=== PATIENT | female | born 1975 | race Caucasian/White ===

== ENCOUNTER 2017-10-04 10:35 | Emergency (ER) | payer SELFPAY ==
[2017-10-04 10:45] VITALS: BP 138/72
--- NOTE | 2017-10-04 11:02 | UC ---
UC General HPI - HPI Summary HPI Summary: Joint pain and fatigue is concerned she may have Lyme disease---no rash - History of Current Complaint Chief Complaint: UCGeneralIllness Stated Complaint: JOINT PAIN FATIGUE Time Seen by Provider: 10/04/17 10:52 Hx Obtained From: Patient Hx Last Menstrual Period: 10/03/17 Onset/Duration: Gradual Onset, Lasting Weeks Timing: Constant Onset Severity: Mild Current Severity: Moderate - Allergy/Home Medications Allergies/Adverse Reactions: Allergies Allergy/AdvReac Type Severity Reaction Status Date / Time Moxifloxacin [From Avelox] Allergy Severe vomiting, Verified 10/04/17 10:39 hives Penicillins Allergy Intermediate Hives Verified 10/04/17 10:39 Erythromycin Allergy Hives Verified 10/04/17 10:39 Levofloxacin [From Levaquin] Allergy Unknown Verified 10/04/17 10:39 Reaction Details Home Medications: Home Medications ALPRAZolam TAB* [Xanax TAB*] 0.25 mg PO Q6H PRN 10/04/17 [History Confirmed 10/10] Levothyroxine TAB* [Synthroid 125 MCG TAB*] 125 mcg PO DAILY 10/04/17 [History Confirmed 10/04/17] PMH/Surg Hx/FS Hx/Imm Hx Previously Healthy: No Endocrine History: Diabetes, Hypothyroidism - Surgical History Surgical History: Yes Surgery Procedure, Year, and Place: Cholecystectomy, LEEP x3, tubal ligation thyroidectomy - Family History Known Family History: Positive: Unknown, Cardiac Disease, Hypertension - Social History Occupation: Unemployed Lives: Alone Alcohol Use: Occasionally Substance Use Type: None Smoking Status (MU): Current Some Day Smoker Type: Cigarettes Length of Time of Smoking/Using Tobacco: 15 years on and off Household Exposure Type: Cigarettes Cessation Counseling: Counseled 3+Min - 10 Min - Immunization History Most Recent Influenza Vaccination: 5 yrs ago Most Recent Tetanus Shot: 5yrs ago Most Recent Pneumonia Vaccination: none Review of Systems Constitutional: Negative Skin: Negative Eyes: Negative ENT: Negative Respiratory: Negative Cardiovascular: Negative Gastrointestinal: Negative Genitourinary: Negative Motor: Negative Neurovascular: Negative Musculoskeletal: Arthralgia Neurological: Negative Psychological: Negative Is Patient Immunocompromised?: No All Other Systems Reviewed And Are Negative: Yes Physical Exam Triage Information Reviewed: Yes Appearance: Well-Appearing, No Pain Distress, Well-Nourished Vital Signs: Initial Vital Signs Temp 98 F 10/04/17 10:43 Pulse 76 10/04/17 10:43 Resp 16 10/04/17 10:43 BP 138/72 10/04/17 10:43 Pulse Ox 100 10/04/17 10:43 Vital Signs Reviewed: Yes Eye Exam: Normal Eyes: Positive: Conjunctiva Clear ENT Exam: Normal ENT: Positive: Normal ENT inspection, Hearing grossly normal, Pharynx normal, TMs normal, Uvula midline. Negative: Trismus, Muffled voice, Hoarse voice Dental Exam: Normal Neck exam: Normal Neck: Positive: Supple, Nontender Respiratory Exam: Normal Respiratory: Positive: Chest non-tender, Lungs clear, Normal breath sounds, No respiratory distress, No accessory muscle use Cardiovascular Exam: Normal Cardiovascular: Positive: RRR, No Murmur, Pulses Normal, Brisk Capillary Refill Musculoskeletal Exam: Normal Musculoskeletal: Positive: Strength Intact, ROM Intact, No Edema Neurological Exam: Normal Neurological: Positive: Alert, Muscle Tone Normal Psychological Exam: Normal Skin Exam: Normal Course/Dx - Course Course Of Treatment: Lab studies will start Doxy if Lyme is positive, nicotine cesasation information - Differential Dx - Multi-Symptom Provider Diagnoses: Fatigue, artharalgia Discharge - Discharge Plan Condition: Stable Disposition: HOME Prescriptions: Doxycycline (Monohydrate) [Doxycycline Monohydrate] 1 cap PO BID #28 cap Patient Education Materials: Lyme Disease (ED), Musculoskeletal Pain (ED), Fatigue (ED) Referrals: [facility] – [place] PHYSICIAN REFERRAL [Outside] - 1 Week Additional Instructions: I have included information regarding Lyme for your reference. If you Lyme comes back positive we will call in antibiotics for you--
[2017-10-04 14:11] LABS: Hematocrit 46 % (35-47); Hemoglobin 15.7 g/dl (12.0-16.0); Mean Corpuscular HGB Conc 34 g/dl (31-36); Mean Corpuscular Hemoglobin 32 pg (27-31); Mean Corpuscular Volume 94 fL (80-97); Mean Platelet Volume 9 um3 (7.4-10.4); Red Blood Count 4.91 10^6/ul (4.0-5.4); Red Cell Distribution Width 13 % (10.5-15); White Blood Count 10.1 10^3/ul (3.5-10.8)
[2017-10-04 14:51] LABS: Erythrocyte Sed Rate 10 mm/Hr (0-14)
[2017-10-08 14:57] LABS: Lyme Disease IgG Ab WB Negative (Negative)
--- NOTE | 2017-10-08 19:31 | UC ---
Progress - Progress Note Progress Note: Lyme negative. Can let her know. - Results/Orders Results/Orders: Lyme negative. Can let her know.
--- NOTE | 2017-10-10 21:04 | UC ---
Progress - Progress Note Progress Note: PT CALLED TO DISCUSS LYME SEROLOGY RESULT. PT C/O PERSISTENT MYALGIAS, ARTHRALGIAS, FATIGUE AND LOW GRADE FEVERS. INITIAL LYME SCREEN POSITIVE BUT NO ANTIBODIES DETECTED. ADVISED RETESTING IN SEVERAL WEEKS. PT STATES SHE HAS NO INSURANCE, NO PCP AND PERSISTENT SX, THEREFORE WILL TX WITH DOXY BID X 2 WEEKS. ADVISED THAT IF SX DO NOT IMPROVE SHE MUST SEEK FOLLOW-UP. CONTACT FOR PHYSICIAN REFERRAL CENTER PROVIDED. ERX SENT TO MARLON OZUNA MD Lyme negative. Can let her know. - Results/Orders Results/Orders: Lyme negative. Can let her know.
== END 2017-10-04 11:21 | disposition home or self-care (01) ==
LOC: UCEAST 10:35
DX: R53.83 Other fatigue (principal); M25.50 Pain in unspecified joint; E11.9 Type 2 diabetes mellitus without complications; E03.9 Hypothyroidism, unspecified; Z90.49 Acquired absence of other specified parts of digestive tract; Z88.1 Allergy status to other antibiotic agents; Z88.0 Allergy status to penicillin; Z71.6 Tobacco abuse counseling; F17.210 Nicotine dependence, cigarettes, uncomplicated
CPT/HCPCS: 36415; 85025; 85652; 86617; 86618; 99211; G0463

== ENCOUNTER 2017-12-02 19:45 | Emergency (ER) | payer SELFPAY ==
[2017-12-02 21:53] LABS: ABS Basophils 0.1 10^3/ul (0-0.2); ABS Eosinophils 0.1 10^3/ul (0-0.6); ABS Lymphocytes 3.6 10^3/ul (1.0-4.8); ABS Monocytes 0.7 10^3/ul (0-0.8); ABS Neutrophils 7.5 10^3/ul (1.5-7.7); ABS Nucleated RBC 0 10^3/ul; Eosinophil % 1.1 % (0-6); Hematocrit 45 % (35-47); Hemoglobin 15.3 g/dl (12.0-16.0); Lymphocyte % 29.9 % (25-47); Mean Corpuscular HGB Conc 34 g/dl (31-36); Mean Corpuscular Hemoglobin 32 pg (27-31); Mean Corpuscular Volume 94 fL (80-97); Mean Platelet Volume 9 um3 (7.4-10.4); Nucleated Red Blood Cells % 0.1; Platelet Count 315 10^3/ul (150-450); Red Blood Count 4.81 10^6/ul (4.0-5.4); Red Cell Distribution Width 13 % (10.5-15); White Blood Count 12.1 10^3/ul (3.5-10.8)
[2017-12-02 22:05] LABS: EGFR Non-African American 90.3 (>60)
[2017-12-02] MEDS ORDERED: Ketorolac INJ* 60 MG/2 ML VIAL IM ONE (22:36)
--- NOTE | 2017-12-02 23:35 | ED ---
GI/ HPI - HPI Summary HPI Summary: 42F presents with LUQ and left flank pain today. She states she has had intermittent left flank pain for a couple months. She states today her developed pain from her left flank under left rib into LUQ. She denies any dysuria, hematuria, urgency or frequency. She has history of acid reflux. She states that food makes it worst. She admits to normal appetite. She denies any melena or blood in stool. She admits to nausea but denies any v/d/c. She denies any cough. She denies any history of blood clots. She denies any chest pain. She states deep breath makes rib hurt more. She denies any injury. She is not on any thing for acid reflux because the medication causes palpitations. - History of Current Complaint Chief Complaint: EDAbdPain Time Seen by Provider: 12/02/17 22:09 Stated Complaint: ABD PAIN Hx Last Menstrual Period: 10/03/17 Pain Intensity: 7 - Allergy/Home Medications Allergies/Adverse Reactions: Allergies Allergy/AdvReac Type Severity Reaction Status Date / Time Moxifloxacin [From Avelox] Allergy Severe vomiting, Verified 12/02/17 22:29 hives Penicillins Allergy Intermediate Hives Verified 12/02/17 22:29 Erythromycin Allergy Hives Verified 12/02/17 22:29 Levofloxacin [From Levaquin] Allergy Unknown Verified 12/02/17 22:29 Reaction Details PMH/Surg Hx/FS Hx/Imm Hx Endocrine/Hematology History: Reports: Hx Diabetes - NIDDM, Hx Thyroid Disease Denies: Hx Systemic Lupus Erythematosus Cardiovascular History: Denies: Hx Congestive Heart Failure, Hx Hypertension Respiratory History: Denies: Hx Asthma, Hx Chronic Obstructive Pulmonary Disease (COPD) GI History: Reports: Hx Gastroesophageal Reflux Disease Denies: Hx Ulcer History: Denies: Hx Renal Disease Musculoskeletal History: Denies: Hx Rheumatoid Arthritis Sensory History: Reports: Hx Contacts or Glasses Opthamlomology History: Reports: Hx Contacts or Glasses - Cancer History Cancer Type, Location and Year: Cervical cancer - Surgical History Surgery Procedure, Year, and Place: Cholecystectomy, LEEP x3, tubal ligation thyroidectomy Infectious Disease History: No Infectious Disease History: Denies: Hx Clostridium Difficile, Hx Hepatitis, Hx Human Immunodeficiency Virus (HIV), Hx of Known/Suspected MRSA, Hx Shingles, Hx Tuberculosis, Hx Known/ Suspected VRE, Hx Known/Suspected VRSA, History Other Infectious Disease, Traveled Outside the [place] in Last 30 Days - Family History Known Family History: Positive: Unknown, Cardiac Disease, Hypertension - Social History Alcohol Use: Occasionally Substance Use Type: Reports: None Hx Tobacco Use: Yes Smoking Status (MU): Current Some Day Smoker Type: Cigarettes Length of Time of Smoking/Using Tobacco: 15 years on and off Review of Systems Negative: Fever Negative: Chest Pain Negative: Shortness Of Breath Positive: Abdominal Pain - LUQ. Negative: Vomiting, Diarrhea, Nausea Positive: flank pain. Negative: dysuria All Other Systems Reviewed And Are Negative: Yes Physical Exam Triage Information Reviewed: Yes Vital Signs On Initial Exam: Initial Vitals Temp Pulse Resp BP Pulse Ox 97.3 F 86 16 155/94 97 12/02/17 19:48 12/02/17 19:48 12/02/17 19:48 12/02/17 19:48 12/02/17 19:48 Vital Signs Reviewed: Yes Appearance: Positive: Well-Appearing Skin: Positive: Warm, Dry Head/Face: Positive: Normal Head/Face Inspection Eyes: Positive: Normal, Conjunctiva Clear Respiratory/Lung Sounds: Positive: Clear to Auscultation, Breath Sounds Present Cardiovascular: Positive: Normal, RRR Abdomen Description: Positive: Soft, CVA Tenderness (L), Other: - tenderness in LUQ Bowel Sounds: Positive: Present Musculoskeletal: Positive: Normal Neurological: Positive: Normal Psychiatric: Positive: Normal Diagnostics - Vital Signs Vital Signs Temp Pulse Resp BP Pulse Ox 12/02/17 19:48 97.3 F 86 16 155/94 97 - Laboratory Lab Results: Lab Results 12/02/17 12/02/17 12/02/17 Range/Units 21:38 21:38 21:38 WBC 12.1 H (3.5-10.8) 10^3/ul RBC 4.81 (4.0-5.4) 10^6/ul Hgb 15.3 (12.0-16.0) g/dl Hct 45 (35-47) % MCV 94 (80-97) fL MCH 32 H (27-31) pg MCHC 34 (31-36) g/dl RDW 13 (10.5-15) % Plt Count 315 (150-450) 10^3/ul MPV 9 (7.4-10.4) um3 Neut % (Auto) 62.2 (38-83) % Lymph % (Auto) 29.9 (25-47) % [place] % (Auto) 5.8 (1-9) % Eos % (Auto) 1.1 (0-6) % Baso % (Auto) 1.0 (0-2) % Absolute Neuts (auto) 7.5 (1.5-7.7) 10^3/ul Absolute Lymphs (auto) 3.6 (1.0-4.8) 10^3/ul Absolute Monos (auto) 0.7 (0-0.8) 10^3/ul Absolute Eos (auto) 0.1 (0-0.6) 10^3/ul Absolute Basos (auto) 0.1 (0-0.2) 10^3/ul Absolute Nucleated RBC 0 10^3/ul Nucleated RBC % 0.1 D-Dimer, Quantitative < 200 (Less Than 230) ng/mL Sodium 138 (133-145) mmol/L Potassium 4.0 (3.5-5.0) mmol/L Chloride 106 (101-111) mmol/L Carbon Dioxide 24 (22-32) mmol/L Anion Gap 8 (2-11) mmol/L BUN 14 (6-24) mg/dL Creatinine 0.71 (0.51-0.95) mg/dL Est GFR ( Amer) 116.1 (>60) Est GFR (Non-Af Amer) 90.3 (>60) BUN/Creatinine Ratio 19.7 (8-20) Glucose 129 H (70-100) mg/dL Calcium 9.7 (8.6-10.3) mg/dL Total Bilirubin 0.30 (0.2-1.0) mg/dL AST 12 L (13-39) U/L ALT 21 (7-52) U/L Alkaline Phosphatase 50 (34-104) U/L C-React Prot High Sens 1.67 mg/L Total Protein 6.7 (6.4-8.9) g/dL Albumin 4.3 (3.2-5.2) g/dL Globulin 2.4 (2-4) g/dL Albumin/Globulin Ratio 1.8 (1-3) Lipase 26 (11.0-82.0) U/L Beta HCG, Quant 0.65 mIU/mL Result Diagrams: 12/02/17 21:38 12/02/17 21:38 Lab Statement: Any lab studies that have been ordered have been reviewed, and results considered in the medical decision making process. - CT abd CT Interpretation: No Acute Changes CT Interpretation Completed By: Caitlin HUNTER Course/Dx - Course Course Of Treatment: 42F presents with LUQ and left flank pain today. She states she has had intermittent left flank pain for a couple months. She states today her developed pain from her left flank under left rib into LUQ. She denies any dysuria, hematuria, urgency or frequency. She has history of acid reflux. She states that food makes it worst. She admits to normal appetite. She denies any melena or blood in stool. She admits to nausea but denies any v/d/c. She denies any cough. She denies any history of blood clots. She denies any chest pain. She states deep breath makes rib hurt more. She denies any injury. She is not on any thing for acid reflux because the medication causes palpitations. had gallbladder removed. on exam tenderness in LUQ and left flank. wbc elevated but no left shift and cpr normal. CT shows no pathology. urine neg. will have follow up with primary as may be GERD or ulcer related as patient has bad reaction to acid suppressors so can discussed meds with primary. patient understand and agrees with plan. - Diagnoses Differential Diagnoses - Female: Peptic Ulcer Disease, Pyelonephritis, Urinary Tract Infection, Ureteral Calculi Provider Diagnoses: Abdominal pain Discharge - Discharge Plan Condition: Good Disposition: HOME Patient Education Materials: Diet for Stomach Ulcers and Gastritis (ED), Abdominal Pain (ED) Referrals: [facility] – [place] PHYS[facility]IAN REFERRAL [Outside] Additional Instructions: Follow up with primary within 5 days Take tums for pain Return to ED if develop any new or worsening symptoms
[2017-12-03 01:10] VITALS: BP 131/73
[2017-12-03 01:16] LABS: Urine Appearance Clear; Urine Blood Negative (Negative); Urine Color Yellow; Urine Ketones Negative (Negative); Urine Protein Negative (Negative); Urine Specific Gravity 1.017 (1.010-1.030); Urine Urobilinogen Negative (Negative)
--- NOTE | 2017-12-03 08:00 | RAD ---
INDICATION: Left flank abdominal pain. COMPARISON: Comparison is made with a prior CT of the abdomen and pelvis from June 29, 2015 TECHNIQUE: A CT scan of the abdomen and pelvis was performed without intravenous or oral contrast. Contiguous axial sections were obtained from the lung bases through the symphysis pubis. Images were reconstructed in the coronal and sagittal planes. FINDINGS: The lung bases are clear. No pleural effusion is present. The liver and spleen are normal in size. The liver is decreased in attenuation consistent with fatty infiltration. The patient is status post cholecystectomy. The pancreas appears to be within normal limits. The adrenal glands and kidneys are normal in size. No renal calculi or hydronephrosis is seen. No ureteral or bladder calculi are seen. The aorta is normal in caliber with mild calcific plaque present. No significant enlarged retroperitoneal lymph nodes are seen. The stomach, small and large bowel appear nondistended. The appendix is within normal limits. There are few scattered diverticuli in the descending and sigmoid colon. There is no evidence for diverticulitis or colitis. The uterus is upper limits of normal in size and anteverted. No free intraperitoneal air or fluid is seen. No significant focal osseous abnormality is seen. IMPRESSION: 1. NO EVIDENCE FOR ACUTE FINDING. 2. STATUS POST CHOLECYSTECTOMY.
== END 2017-12-03 01:00 | disposition home or self-care (01) ==
LOC: ED 19:45
DX: R10.84 Generalized abdominal pain (principal); Z72.0 Tobacco use; E11.9 Type 2 diabetes mellitus without complications
CPT/HCPCS: 36415; 74176; 80053; 81003; 83690; 84702; 85025; 85379; 86141; 96372; 99283; J1885

== ENCOUNTER 2017-12-04 19:10 | Emergency (ER) | payer SELFPAY ==
[2017-12-04] MEDS ORDERED: Al Hydrox/Mg Hydrox/Simet LIQ* 30 ML UDC PO ONE (22:44)
[2017-12-04 23:25] LABS: ABS Basophils 0.1 10^3/ul (0-0.2); ABS Eosinophils 0.1 10^3/ul (0-0.6); ABS Monocytes 0.6 10^3/ul (0-0.8); ABS Neutrophils 5.8 10^3/ul (1.5-7.7); ABS Nucleated RBC 0 10^3/ul; Eosinophil % 1.2 % (0-6); Hematocrit 43 % (35-47); Hemoglobin 14.4 g/dl (12.0-16.0); Lymphocyte % 37.6 % (25-47); Mean Corpuscular HGB Conc 34 g/dl (31-36); Mean Corpuscular Hemoglobin 32 pg (27-31); Mean Corpuscular Volume 94 fL (80-97); Mean Platelet Volume 8 um3 (7.4-10.4); Nucleated Red Blood Cells % 0.2; Platelet Count 293 10^3/ul (150-450); Red Blood Count 4.59 10^6/ul (4.0-5.4); Red Cell Distribution Width 13 % (10.5-15); White Blood Count 10.7 10^3/ul (3.5-10.8)
[2017-12-04 23:37] LABS: EGFR Non-African American 82.2 (>60)
[2017-12-05 00:34] VITALS: BP 124/80
--- NOTE | 2017-12-20 01:19 | ED ---
Luh Nam Emily, scribed for Brian Pate MD on 12/04/17 at 2245 . Abdominal Pain/Female - HPI Summary HPI Summary: This patient is a 42 year old F presenting to [facility] with a chief complaint of abd pain radiating to chest and upper back that began 2 days ago. Pt reports the pain worsening today. The patient rates the pain 8/10 in severity. Symptoms aggravated by nothing. Symptoms alleviated by nothing. Patient reports nausea and diarrhea. Patient denies urinary symptoms, fever, and chills. Medications reviewed. Allergies reviewed. - History of Current Complaint Chief Complaint: EDAbdPain Stated Complaint: CHEST/ABD/BACK PAIN Hx Obtained From: Patient Hx Last Menstrual Period: 11/02/18 ?: No Onset/Duration: Sudden Onset, Lasting Days, Still Present, Worse Since - This morning Timing: Constant Severity Initially: Severe Severity Currently: Severe Pain Intensity: 8 Pain Scale Used: 0-10 Numeric Radiates to: Back, Chest Aggravating Factor(s): Nothing Alleviating Factor(s): Nothing Associated Signs and Symptoms: Positive: Nausea, Diarrhea. Negative: Fever, Urinary Symptoms Allergies/Adverse Reactions: Allergies Allergy/AdvReac Type Severity Reaction Status Date / Time Moxifloxacin [From Avelox] Allergy Severe vomiting, Verified 12/04/17 19:20 hives Penicillins Allergy Intermediate Hives Verified 12/04/17 19:20 Erythromycin Allergy Hives Verified 12/04/17 19:20 Levofloxacin [From Levaquin] Allergy Unknown Verified 12/04/17 19:20 Reaction Details PMH/Surg Hx/FS Hx/Imm Hx Previously Healthy: No Endocrine/Hematology History: Reports: Hx Diabetes - NIDDM, Hx Thyroid Disease Denies: Hx Systemic Lupus Erythematosus Cardiovascular History: Denies: Hx Congestive Heart Failure, Hx Hypertension Respiratory History: Denies: Hx Asthma, Hx Chronic Obstructive Pulmonary Disease (COPD) GI History: Reports: Hx Gastroesophageal Reflux Disease Denies: Hx Ulcer History: Denies: Hx Renal Disease Musculoskeletal History: Denies: Hx Rheumatoid Arthritis Sensory History: Reports: Hx Contacts or Glasses Opthamlomology History: Reports: Hx Contacts or Glasses - Cancer History Cancer Type, Location and Year: Cervical cancer - Surgical History Surgery Procedure, Year, and Place: Cholecystectomy, LEEP x3, tubal ligation thyroidectomy Infectious Disease History: No Infectious Disease History: Denies: Hx Clostridium Difficile, Hx Hepatitis, Hx Human Immunodeficiency Virus (HIV), Hx of Known/Suspected MRSA, Hx Shingles, Hx Tuberculosis, Hx Known/ Suspected VRE, Hx Known/Suspected VRSA, History Other Infectious Disease, Traveled Outside the [place] in Last 30 Days - Family History Known Family History: Positive: Unknown, Cardiac Disease, Hypertension - Social History Occupation: Employed Full-time Lives: Alone Alcohol Use: Occasionally Substance Use Type: Reports: None Hx Tobacco Use: Yes Smoking Status (MU): Current Some Day Smoker Type: Cigarettes Length of Time of Smoking/Using Tobacco: 15 years on and off Review of Systems Negative: Fever, Chills Positive: Abdominal Pain, Diarrhea, Nausea Genitourinary: Negative All Other Systems Reviewed And Are Negative: Yes Physical Exam - Summary Physical Exam Summary: Appearance: Well-appearing, Well-nourished Skin: Warm, Dry, No rash Eyes: Normal, PERRL, EOMI, sclera anicteric ENT: Normal Neck: Supple, nontender Respiratory: Clear to auscultation Cardiovascular: S1, S2, no murmur, no rub, no gallop Abdomen: Soft, nontender, no organomegaly Bowel sounds: Present Musculoskeletal: Normal, Strength/ROM Intact, no edema, pulses symmetrical Neurological: Normal, A&Ox3, cranial nerves II-XII WNL, follows commands, gait not tested, sensation intact to pin and light touch Psychiatric: affect normal, behavior appropriate, dressed appropriately, judgment intact Triage Information Reviewed: Yes Vital Signs On Initial Exam: Initial Vitals Temp Pulse Resp BP Pulse Ox 98.3 F 88 16 153/69 98 12/04/17 19:13 12/04/17 19:13 12/04/17 19:13 12/04/17 19:13 12/04/17 19:13 Vital Signs Reviewed: Yes Diagnostics - Vital Signs Vital Signs Temp Pulse Resp BP Pulse Ox 12/04/17 22:00 98.8 F 64 16 146/87 97 12/04/17 19:13 98.3 F 88 16 153/69 98 - Laboratory Result Diagrams: 12/04/17 23:05 12/04/17 23:05 Lab Statement: Any lab studies that have been ordered have been reviewed, and results considered in the medical decision making process. - EKG 1919 Cardiac Rate: NL EKG Rhythm: Sinus Rhythm - [address] Segment: Normal Abdominal Pain Fem Course/Dx - Course Course Of Treatment: This patient is a 42 year old F presenting to [facility] with a chief complaint of central abd pain radiating to chest and upper back that began 2 days ago. Physical Exam Findings. Nml. Bloodwork obtained. In the ED course the patient was given Maalox. Patient will be discharged with prescription for Omeprazole and follow up from PCP. The patient is agreeable with this plan. - Diagnoses Provider Diagnoses: Abdominal pain, Gastritis Discharge - Discharge Plan Condition: Fair Disposition: HOME Prescriptions: Omeprazole 40 mg PO DAILY #30 cap Patient Education Materials: Gastritis (ED) Referrals: No Primary Care Phys,NOPCP [Primary Care Provider] - The documentation as recorded by the Luh purvis Emily accurately reflects the service I personally performed and the decisions made by me, Brian Pate MD.
== END 2017-12-05 00:33 | disposition home or self-care (01) ==
LOC: ED 19:10
DX: K29.70 Gastritis, unspecified, without bleeding (principal); R11.0 Nausea; R19.7 Diarrhea, unspecified; R10.9 Unspecified abdominal pain; Z72.0 Tobacco use
CPT/HCPCS: 36415; 80053; 83690; 85025; 93005; 99282; A9270-GY

== ENCOUNTER 2018-01-25 03:06 | Emergency (ER) | payer SELFPAY ==
[2018-01-25] MEDS ORDERED: NS 0.9% 1000 ML* 1,000 ML IV ONE (03:24)
[2018-01-25] MEDS ORDERED: Ketorolac INJ* 30 MG/ML 1 ML VIAL IV PUSH ONE (03:25)
[2018-01-25 03:46] LABS: ABS Basophils 0.1 10^3/ul (0-0.2); ABS Eosinophils 0.1 10^3/ul (0-0.6); ABS Lymphocytes 3.7 10^3/ul (1.0-4.8); ABS Monocytes 0.8 10^3/ul (0-0.8); ABS Neutrophils 5.3 10^3/ul (1.5-7.7); ABS Nucleated RBC 0 10^3/ul; Eosinophil % 1.2 % (0-6); Hematocrit 42 % (35-47); Hemoglobin 14.1 g/dl (12.0-16.0); Lymphocyte % 36.6 % (25-47); Mean Corpuscular HGB Conc 34 g/dl (31-36); Mean Corpuscular Hemoglobin 32 pg (27-31); Mean Corpuscular Volume 93 fL (80-97); Mean Platelet Volume 9 um3 (7.4-10.4); Nucleated Red Blood Cells % 0; Platelet Count 253 10^3/ul (150-450); Red Blood Count 4.48 10^6/ul (4.0-5.4); Red Cell Distribution Width 13 % (10.5-15)
[2018-01-25 04:00] LABS: EGFR Non-African American 91.8 (>60)
[2018-01-25] MEDS ORDERED: Al Hydrox/Mg Hydrox/Simet LIQ* 30 ML UDC PO ONE (04:35)
[2018-01-25] MEDS ORDERED: Famotidine TAB* 20 MG PO ONE (04:35)
[2018-01-25 05:33] VITALS: BP 141/84
[2018-01-25 05:36] LABS: Urine Appearance Cloudy; Urine Blood Negative (Negative); Urine Color Yellow; Urine Ketones Negative (Negative); Urine Protein Negative (Negative); Urine Specific Gravity 1.017 (1.010-1.030); Urine Urobilinogen Negative (Negative)
--- NOTE | 2018-01-25 05:39 | ED ---
Hans Nam Nikita, scribed for Thiago Marques MD on 01/25/18 at 0436 . Abdominal Pain/Female - HPI Summary HPI Summary: This patient is a 42 year old F presenting to ED with a chief complaint of L flank pain since 1 week ago. The CC is described as constant, dull, and pressure. The patient rates the pain 7/10 in severity. Symptoms aggravated by nothing. Symptoms alleviated by nothing. Patient reports nausea, decreased sleep , and acid reflux. Patient denies BM problems, hematuria, and dysuria. LMP was 2 weeks ago. - History of Current Complaint Chief Complaint: EDFlankPain Stated Complaint: ABD PAIN Hx Obtained From: Patient Hx Last Menstrual Period: 11/02/18 Onset/Duration: Sudden Onset, Lasting Weeks, Still Present Timing: Constant Severity Initially: Moderate Severity Currently: Moderate Pain Intensity: 7 Pain Scale Used: 0-10 Numeric Location: Flank - left Character: Dull, Other: - pressure Aggravating Factor(s): Nothing Alleviating Factor(s): Nothing Associated Signs and Symptoms: Positive: Other: - Patient reports nausea, decreased sleep, and acid reflux. Patient denies BM problems, hematuria, and dysuria. Allergies/Adverse Reactions: Allergies Allergy/AdvReac Type Severity Reaction Status Date / Time erythromycin base Allergy Rash Verified 01/25/18 03:09 levofloxacin [From Levaquin] Allergy Rash Verified 01/25/18 03:09 moxifloxacin [From Avelox] Allergy Vomiting Verified 01/25/18 03:08 Penicillins Allergy Rash Verified 01/25/18 03:09 Quinolones Allergy Rash Verified 01/25/18 03:09 PMH/Surg Hx/FS Hx/Imm Hx Endocrine/Hematology History: Reports: Hx Diabetes - NIDDM, Hx Thyroid Disease Denies: Hx Systemic Lupus Erythematosus Cardiovascular History: Denies: Hx Congestive Heart Failure, Hx Hypertension Respiratory History: Denies: Hx Asthma, Hx Chronic Obstructive Pulmonary Disease (COPD) GI History: Reports: Hx Gastroesophageal Reflux Disease Denies: Hx Ulcer History: Denies: Hx Renal Disease Musculoskeletal History: Denies: Hx Rheumatoid Arthritis Sensory History: Reports: Hx Contacts or Glasses Opthamlomology History: Reports: Hx Contacts or Glasses - Cancer History Cancer Type, Location and Year: Cervical cancer - Surgical History Surgery Procedure, Year, and Place: Cholecystectomy, LEEP x3, tubal ligation thyroidectomy - Immunization History Date of Tetanus Vaccine: utd Date of Influenza Vaccine: none Infectious Disease History: No Infectious Disease History: Denies: Hx Clostridium Difficile, Hx Hepatitis, Hx Human Immunodeficiency Virus (HIV), Hx of Known/Suspected MRSA, Hx Shingles, Hx Tuberculosis, Hx Known/ Suspected VRE, Hx Known/Suspected VRSA, History Other Infectious Disease, Traveled Outside the [place] in Last 30 Days - Family History Known Family History: Positive: Cardiac Disease, Hypertension - Social History Alcohol Use: Occasionally Substance Use Type: Reports: None Hx Tobacco Use: Yes Smoking Status (MU): Current Some Day Smoker Type: Cigarettes Length of Time of Smoking/Using Tobacco: 15 years on and off Review of Systems Positive: Abdominal Pain - L flank pain, Nausea, Other - acid reflux; denies BM problems Negative: dysuria, hematuria Neurological: Other - decreased sleep All Other Systems Reviewed And Are Negative: Yes Physical Exam - Summary Physical Exam Summary: Appearance: Well appearing, no pain distress Skin: warm, dry, reflects adequate perfusion Head/face: normal Eyes: EOMI, JANIS ENT: normal Neck: supple, non-tender Respiratory: CTA, breath sounds present Cardiovascular: RRR, pulses symmetrical Abdomen: non-tender, soft, no CVA tenderness Bowel: present Musculoskeletal: normal, strength/ROM intact Neuro: normal, sensory motor intact, A&Ox3 Triage Information Reviewed: Yes Vital Signs On Initial Exam: Initial Vitals Temp Pulse Resp BP Pulse Ox 97.2 F 80 18 150/83 100 01/25/18 03:09 01/25/18 03:09 01/25/18 03:09 01/25/18 03:09 01/25/18 03:09 Vital Signs Reviewed: Yes Diagnostics - Vital Signs Vital Signs Temp Pulse Resp BP Pulse Ox 01/25/18 03:09 97.2 F 80 18 150/83 100 - Laboratory Lab Results: Lab Results 01/25/18 01/25/18 01/25/18 Range/Units 03:30 03:30 03:30 WBC 10.0 (3.5-10.8) 10^3/ul RBC 4.48 (4.0-5.4) 10^6/ul Hgb 14.1 (12.0-16.0) g/dl Hct 42 (35-47) % MCV 93 (80-97) fL MCH 32 H (27-31) pg MCHC 34 (31-36) g/dl RDW 13 (10.5-15) % Plt Count 253 (150-450) 10^3/ul MPV 9 (7.4-10.4) um3 Neut % (Auto) 53.0 (38-83) % Lymph % (Auto) 36.6 (25-47) % Lyon % (Auto) 7.8 H (0-7) % Eos % (Auto) 1.2 (0-6) % Baso % (Auto) 1.4 (0-2) % Absolute Neuts (auto) 5.3 (1.5-7.7) 10^3/ul Absolute Lymphs (auto) 3.7 (1.0-4.8) 10^3/ul Absolute Monos (auto) 0.8 (0-0.8) 10^3/ul Absolute Eos (auto) 0.1 (0-0.6) 10^3/ul Absolute Basos (auto) 0.1 (0-0.2) 10^3/ul Absolute Nucleated RBC 0 10^3/ul Nucleated RBC % 0 Sodium 136 (133-145) mmol/L Potassium 3.9 (3.5-5.0) mmol/L Chloride 106 (101-111) mmol/L Carbon Dioxide 23 (22-32) mmol/L Anion Gap 7 (2-11) mmol/L BUN 18 (6-24) mg/dL Creatinine 0.70 (0.51-0.95) mg/dL Est GFR ( Amer) 118.0 (>60) Est GFR (Non-Af Amer) 91.8 (>60) BUN/Creatinine Ratio 25.7 H (8-20) Glucose 148 H (70-100) mg/dL Lactic Acid 1.0 (0.5-2.0) mmol/L Calcium 9.4 (8.6-10.3) mg/dL Total Bilirubin 0.30 (0.2-1.0) mg/dL AST 12 L (13-39) U/L ALT 21 (7-52) U/L Alkaline Phosphatase 42 (34-104) U/L C-Reactive Protein 1.28 (< 5.00) mg/L Total Protein 6.2 L (6.4-8.9) g/dL Albumin 4.1 (3.2-5.2) g/dL Globulin 2.1 (2-4) g/dL Albumin/Globulin Ratio 2.0 (1-3) Lipase 26 (11.0-82.0) U/L Result Diagrams: 01/25/18 03:30 01/25/18 03:30 Lab Statement: Any lab studies that have been ordered have been reviewed, and results considered in the medical decision making process. - Radiology Abdomen XR Radiology Interpretation Completed By: ED Physician - severe constipation Re-Evaluation - Re-Evaluation Second Eval Change: Improved Abdominal Pain Fem Course/Dx - Course Course Of Treatment: Abd pain L sided and fullness for a week with hx of constip. Xray confirms this. labs unremarkable. Tx symptomatically. - Diagnoses Differential Diagnosis: Positive: Bowel Obstruction, Constipation, Peptic Ulcer Disease, Other - gastritis Provider Diagnoses: LUQ pain, Constipation Discharge - Discharge Plan Condition: Good Disposition: HOME Prescriptions: Bisacodyl SUPP* [Dulcolax Supp*] 10 mg PO DAILY #5 supp Famotidine TAB* [Pepcid 20 MG TAB*] 20 mg PO BID #20 tab Hyoscyamine Sulfate 0.125 mg PO Q6H PRN #20 tab.rapdis PRN Reason: cramping Ondansetron HCl [Zofran] 4 mg PO TID PRN #10 tablet PRN Reason: Nausea Polyethylene Glycol 3350 BTL* [Miralax] 1 cap PO TID PRN #1 btl PRN Reason: Constipation Patient Education Materials: Constipation (ED) Referrals: [facility] [Outside] Additional Instructions: natural fruit juices. High fiber diet. Return if worse, vomiting, increased pain or other concerns. The documentation as recorded by the Hans purvis Nikita accurately reflects the service I personally performed and the decisions made by , Thiago Marques MD.
--- NOTE | 2018-01-25 07:32 | RAD ---
INDICATION: Left lower quadrant pain COMPARISON: None TECHNIQUE: A single view of the abdomen is submitted. FINDINGS: Bones: There are no acute bony findings. Soft tissues: The soft tissues appear normal. The psoas margins are sharp. Bowel gas pattern: Normal Calcifications: There are no abnormal calcifications. Other: None IMPRESSION: NO ACUTE DIAGNOSTIC FINDINGS.
== END 2018-01-25 05:30 | disposition home or self-care (01) ==
LOC: ED 03:06
DX: R10.12 Left upper quadrant pain (principal); K59.00 Constipation, unspecified; F17.210 Nicotine dependence, cigarettes, uncomplicated; E11.9 Type 2 diabetes mellitus without complications; E07.9 Disorder of thyroid, unspecified; Z88.0 Allergy status to penicillin; K21.9 Gastro-esophageal reflux disease without esophagitis
CPT/HCPCS: 36415; 74018; 80053; 81003; 83605; 83690; 85025; 86140; 99282; J1885

== ENCOUNTER 2018-02-01 16:29 | Emergency (ER) | payer SELFPAY ==
[2018-02-01 17:59] LABS: ABS Basophils 0.1 10^3/ul (0-0.2); ABS Eosinophils 0.1 10^3/ul (0-0.6); ABS Lymphocytes 2.2 10^3/ul (1.0-4.8); ABS Monocytes 0.8 10^3/ul (0-0.8); ABS Neutrophils 8.9 10^3/ul (1.5-7.7); ABS Nucleated RBC 0 10^3/ul; Eosinophil % 1.1 % (0-6); Hematocrit 45 % (35-47); Hemoglobin 15.1 g/dl (12.0-16.0); Lymphocyte % 18.3 % (25-47); Mean Corpuscular HGB Conc 34 g/dl (31-36); Mean Corpuscular Hemoglobin 32 pg (27-31); Mean Corpuscular Volume 94 fL (80-97); Mean Platelet Volume 9 um3 (7.4-10.4); Nucleated Red Blood Cells % 0.1; Platelet Count 246 10^3/ul (150-450); Red Blood Count 4.79 10^6/ul (4.0-5.4); Red Cell Distribution Width 13 % (10.5-15); White Blood Count 12.1 10^3/ul (3.5-10.8)
[2018-02-01 18:13] LABS: Urine Appearance Clear; Urine Blood Negative (Negative); Urine Color Yellow; Urine Ketones Negative (Negative); Urine Protein Negative (Negative); Urine Specific Gravity 1.016 (1.010-1.030); Urine Urobilinogen Negative (Negative)
[2018-02-01 18:17] LABS: EGFR Non-African American 93.3 (>60)
--- NOTE | 2018-02-01 18:48 | RAD ---
CLINICAL HISTORY: Left flank pain COMPARISON: December 02, 2012 TECHNIQUE: Multiple contiguous axial CT scans were obtained of the abdomen and pelvis, without intravenous contrast enhancement. Coronal and sagittal multiplanar reformations are submitted for review. Oral contrast was not administered. FINDINGS: The study is limited by the lack of intravenous contrast. This limits evaluation of the solid organs and vasculature. LUNG BASES: The lung bases are clear. LIVER: The liver is normal in shape, size, contour, and attenuation. BILE DUCTS: There is no intrahepatic or extrahepatic biliary dilatation. GALLBLADDER: The gallbladder is not visualized. Surgical clips are noted in the gallbladder fossa. PANCREAS: The pancreas is normal, without mass or ductal dilatation. SPLEEN: Normal in size and appearance. UPPER GI TRACT: Evaluation of the gastrointestinal tract is limited by incomplete gastric distention. The upper GI tract is unremarkable. SMALL BOWEL AND MESENTERY: The small bowel is normal in contour, course, and caliber. There is no obstruction or dilatation. COLON: The colon is normal in contour, course, caliber. There is no pericolonic inflammatory change. There is a tubular, vermiform, hollow viscus that is blind ending, and originates from the cecum, consistent with a normal appendix. There is no periappendiceal inflammatory change. This is best seen on coronal images 43 through 47 ADRENALS: Normal bilaterally. KIDNEYS: The kidneys are normal in shape, size, contour, and axis. There is no hydronephrosis or nephrolithiasis. BLADDER: The bladder is incompletely distended but is grossly normal. PELVIC ORGANS: The uterus and adnexa are grossly normal for technique. AORTA: The aorta is normal. IVC: Unremarkable LYMPH NODES: There is no lymphadenopathy by size criteria. ABDOMINAL WALL: There is no evidence for abdominal wall hernia. BONES AND SOFT TISSUES: Minimal degenerative changes are noted OTHER: None IMPRESSION: NO HYDRONEPHROSIS OR NEPHROLITHIASIS
[2018-02-01 19:58] VITALS: BP 121/78
--- NOTE | 2018-02-02 11:12 | ED ---
Giles Nam Jason, scribed for Melvin Rowley MD on 02/01/18 at 1733 . GI/ HPI - HPI Summary HPI Summary: This patient is a 42 year old F presenting to [facility] with a chief complaint of diarrhea since 1300 today. The patient was here 1 week ago for irritable bowel syndrome, and now she has diarrhea with blood and burning LLQ abdominal pain. The patient rates the pain 6/10 in severity. Symptoms aggravated by nothing. Symptoms alleviated by nothing. Patient denies loss of appetite and urinary sx. - History of Current Complaint Chief Complaint: EDAbdPain Time Seen by Provider: 02/01/18 17:23 Stated Complaint: BLOODY STOOL/D/ABD PAIN Hx Obtained From: Patient Hx Last Menstrual Period: 11/02/18 Onset/Duration: Started Hours Ago - this morning, Still Present Timing: Constant Pain Intensity: 6 Location of Pain: LLQ Associated Signs and Symptoms: Positive: Blood w/Stool, Diarrhea Aggravating Factor(s): Nothing Alleviating Factor(s): Nothing - Allergy/Home Medications Allergies/Adverse Reactions: Allergies Allergy/AdvReac Type Severity Reaction Status Date / Time erythromycin base Allergy Rash Verified 01/25/18 03:09 levofloxacin [From Levaquin] Allergy Rash Verified 01/25/18 03:09 moxifloxacin [From Avelox] Allergy Vomiting Verified 01/25/18 03:08 Penicillins Allergy Rash Verified 01/25/18 03:09 Quinolones Allergy Rash Verified 01/25/18 03:09 PMH/Surg Hx/FS Hx/Imm Hx Previously Healthy: No Endocrine/Hematology History: Reports: Hx Diabetes - NIDDM, Hx Thyroid Disease Denies: Hx Systemic Lupus Erythematosus Cardiovascular History: Denies: Hx Congestive Heart Failure, Hx Hypertension Respiratory History: Denies: Hx Asthma, Hx Chronic Obstructive Pulmonary Disease (COPD) GI History: Reports: Hx Gastroesophageal Reflux Disease Denies: Hx Ulcer History: Denies: Hx Renal Disease Musculoskeletal History: Denies: Hx Rheumatoid Arthritis Sensory History: Reports: Hx Contacts or Glasses Opthamlomology History: Reports: Hx Contacts or Glasses - Cancer History Cancer Type, Location and Year: Cervical cancer - Surgical History Surgery Procedure, Year, and Place: Cholecystectomy, LEEP x3, tubal ligation thyroidectomy - Immunization History Date of Tetanus Vaccine: utd Date of Influenza Vaccine: none Infectious Disease History: No Infectious Disease History: Denies: Hx Clostridium Difficile, Hx Hepatitis, Hx Human Immunodeficiency Virus (HIV), Hx of Known/Suspected MRSA, Hx Shingles, Hx Tuberculosis, Hx Known/ Suspected VRE, Hx Known/Suspected VRSA, History Other Infectious Disease, Traveled Outside the [place] in Last 30 Days - Family History Known Family History: Positive: Cardiac Disease, Hypertension - Social History Alcohol Use: Occasionally Substance Use Type: Reports: None Hx Tobacco Use: Yes Smoking Status (MU): Current Some Day Smoker Type: Cigarettes Length of Time of Smoking/Using Tobacco: 15 years on and off Review of Systems Negative: Fever Gastrointestinal: Negative - loss of appetite Positive: Abdominal Pain - LLQ pain, Diarrhea - with blood Positive: no symptoms reported All Other Systems Reviewed And Are Negative: Yes Physical Exam - Summary Physical Exam Summary: Appearance: The patient is well-nourished in no acute distress and in no acute pain. Skin: The skin is warm and dry and skin color reflects adequate perfusion. HEENT: ~The head is normocephalic and atraumatic. The pupils are equal and reactive. The conjunctivae are clear and without drainage. ~Nares are patent and without drainage. Mouth reveals moist mucous membranes and the throat is without erythema and exudate. The external ears are intact. The ear canals are patent and without drainage. The tympanic membranes are intact. Neck: the neck is supple with full range of motion and non-tender. There are no carotid bruits. ~There is no neck vein distension. Respiratory: Chest is non-tender. ~Lungs are clear to auscultation and breath sounds are symmetrical and equal. Cardiovascular: Heart is regular rate and rhythm. ~There is no murmur or rub auscultated. ~~There is no peripheral edema and pulses are symmetrical and equal. Abdomen: Mild lower left quadrant tenderness. ~There are normal bowel sounds heard in all four quadrants and there is no organomegaly palpated. Musculoskeletal: There is no back tenderness noted. ~Extremities are non-tender with full range of motion. ~There is good capillary refill. There is no peripheral edema or calf tenderness elicited. Neurological: Patient is alert and oriented to person, place and time. ~The patient has symmetrical motor strength in all four extremities. ~Cranial nerves are grossly intact. Deep tendon reflexes are symmetrical and equal in all four extremities. Psychiatric: The patient has an appropriate affect and does not exhibit any anxiety or depression. Triage Information Reviewed: Yes Vital Signs On Initial Exam: Initial Vitals Temp Pulse Resp BP Pulse Ox 97.8 F 86 15 154/90 98 02/01/18 16:31 02/01/18 16:31 18 16:31 02/01/18 16:31 02/01/18 16:31 Vital Signs Reviewed: Yes Diagnostics - Vital Signs Vital Signs Temp Pulse Resp BP Pulse Ox 02/01/18 16:31 97.8 F 86 15 154/90 98 - Laboratory Lab Results: Lab Results 02/01/18 02/01/18 02/01/18 Range/Units 17:50 17:50 17:50 WBC 12.1 H (3.5-10.8) 10^3/ul RBC 4.79 (4.0-5.4) 10^6/ul Hgb 15.1 (12.0-16.0) g/dl Hct 45 (35-47) % MCV 94 (80-97) fL MCH 32 H (27-31) pg MCHC 34 (31-36) g/dl RDW 13 (10.5-15) % Plt Count 246 (150-450) 10^3/ul MPV 9 (7.4-10.4) um3 Neut % (Auto) 73.3 (38-83) % Lymph % (Auto) 18.3 L (25-47) % Kerr % (Auto) 6.6 (0-7) % Eos % (Auto) 1.1 (0-6) % Baso % (Auto) 0.7 (0-2) % Absolute Neuts (auto) 8.9 H (1.5-7.7) 10^3/ul Absolute Lymphs (auto) 2.2 (1.0-4.8) 10^3/ul Absolute Monos (auto) 0.8 (0-0.8) 10^3/ul Absolute Eos (auto) 0.1 (0-0.6) 10^3/ul Absolute Basos (auto) 0.1 (0-0.2) 10^3/ul Absolute Nucleated RBC 0 10^3/ul Nucleated RBC % 0.1 Sodium 136 (133-145) mmol/L Potassium 3.8 (3.5-5.0) mmol/L Chloride 105 (101-111) mmol/L Carbon Dioxide 23 (22-32) mmol/L Anion Gap 8 (2-11) mmol/L BUN 13 (6-24) mg/dL Creatinine 0.69 (0.51-0.95) mg/dL Est GFR ( Amer) 120.0 (>60) Est GFR (Non-Af Amer) 93.3 (>60) BUN/Creatinine Ratio 18.8 (8-20) Glucose 122 H (70-100) mg/dL Lactic Acid 1.0 (0.5-2.0) mmol/L Calcium 9.4 (8.6-10.3) mg/dL Total Bilirubin 0.40 (0.2-1.0) mg/dL AST 13 (13-39) U/L ALT 19 (7-52) U/L Alkaline Phosphatase 42 (34-104) U/L C-Reactive Protein 1.68 (< 5.00) mg/L Total Protein 6.8 (6.4-8.9) g/dL Albumin 4.5 (3.2-5.2) g/dL Globulin 2.3 (2-4) g/dL Albumin/Globulin Ratio 2.0 (1-3) Lipase 22 (11.0-82.0) U/L Beta HCG, Quant < 0.60 mIU/mL Urine Color Urine Appearance Urine pH (5-9) Ur Specific Bernard (1.010-1.030) Urine Protein (Negative) Urine Ketones (Negative) Urine Blood (Negative) Urine Nitrate (Negative) Urine Bilirubin (Negative) Urine Urobilinogen (Negative) Ur Leukocyte Esterase (Negative) Urine Glucose (Negative) 02/01/18 Range/Units 18:00 WBC (3.5-10.8) 10^3/ul RBC (4.0-5.4) 10^6/ul Hgb (12.0-16.0) g/dl Hct (35-47) % MCV (80-97) fL MCH (27-31) pg MCHC (31-36) g/dl RDW (10.5-15) % Plt Count (150-450) 10^3/ul MPV (7.4-10.4) um3 Neut % (Auto) (38-83) % Lymph % (Auto) (25-47) % Kerr % (Auto) (0-7) % Eos % (Auto) (0-6) % Baso % (Auto) (0-2) % Absolute Neuts (auto) (1.5-7.7) 10^3/ul Absolute Lymphs (auto) (1.0-4.8) 10^3/ul Absolute Monos (auto) (0-0.8) 10^3/ul Absolute Eos (auto) (0-0.6) 10^3/ul Absolute Basos (auto) (0-0.2) 10^3/ul Absolute Nucleated RBC 10^3/ul Nucleated RBC % Sodium (133-145) mmol/L Potassium (3.5-5.0) mmol/L Chloride (101-111) mmol/L Carbon Dioxide (22-32) mmol/L Anion Gap (2-11) mmol/L BUN (6-24) mg/dL Creatinine (0.51-0.95) mg/dL Est GFR ( Amer) (>60) Est GFR (Non-Af Amer) (>60) BUN/Creatinine Ratio (8-20) Glucose (70-100) mg/dL Lactic Acid (0.5-2.0) mmol/L Calcium (8.6-10.3) mg/dL Total Bilirubin (0.2-1.0) mg/dL AST (13-39) U/L ALT (7-52) U/L Alkaline Phosphatase (34-104) U/L C-Reactive Protein (< 5.00) mg/L Total Protein (6.4-8.9) g/dL Albumin (3.2-5.2) g/dL Globulin (2-4) g/dL Albumin/Globulin Ratio (1-3) Lipase (11.0-82.0) U/L Beta HCG, Quant mIU/mL Urine Color Yellow Urine Appearance Clear Urine pH 6.0 (5-9) Ur Specific Bernard 1.016 (1.010-1.030) Urine Protein Negative (Negative) Urine Ketones Negative (Negative) Urine Blood Negative (Negative) Urine Nitrate Negative (Negative) Urine Bilirubin Negative (Negative) Urine Urobilinogen Negative (Negative) Ur Leukocyte Esterase Negative (Negative) Urine Glucose Negative (Negative) Result Diagrams: 02/01/18 17:50 02/01/18 17:50 Lab Statement: Any lab studies that have been ordered have been reviewed, and results considered in the medical decision making process. - CT abdomen/pelvis CT Interpretation Completed By: Radiologist - NO HYDRONEPHROSIS OR NEPHROLITHIASIS. ED physician has reviewed this radiology report. GIGU Course/Dx - Course Course Of Treatment: Ms. Chang presented here with bloody stools. She was here a week ago with left flank pain and constipation. Stool was confirmed with KUB and she was sent home with laxatives and enemas. These worked but she continued to have loose stools after and today they became bloody. She still has the left flank pain. Her lab W/U was positive for a very slight non- specific leukocytosis and no anemia. She was unable to give a stool sample here. CT was negative. I recommended symptomatic treatment and close F/U. She may need endoscopy and stool sampling. - Diagnoses Provider Diagnoses: Abdominal pain, Hematochezia Discharge - Discharge Plan Condition: Stable Disposition: HOME Patient Education Materials: Rectal Bleeding (ED), Abdominal Pain (ED) Referrals: Britni White [Other] - 3 Days (Contact Britni White, the Physician [facility] [employer] [facility] to schedule a follow up with a physician.) No Primary Care Phys,NOPCP [Primary Care Provider] - Additional Instructions: RETURN TO THE EMERGENCY DEPARTMENT FOR CHANGING OR WORSENING SYMPTOMS. The documentation as recorded by the Giles purvis Jason accurately reflects the service I personally performed and the decisions made by me, Melvin Rowley MD.
== END 2018-02-01 20:02 | disposition home or self-care (01) ==
LOC: ED 16:29
DX: R10.9 Unspecified abdominal pain (principal); R19.7 Diarrhea, unspecified; K92.1 Melena; E11.9 Type 2 diabetes mellitus without complications
CPT/HCPCS: 36415; 74176; 80053; 81003; 83605; 83690; 84702; 85025; 86140; 99283

== ENCOUNTER 2018-03-01 12:30 | Emergency (ER) | payer SELFPAY ==
[2018-03-01 12:48] VITALS: BP 124/80
--- NOTE | 2018-03-01 13:12 | UC ---
Throat Pain/Nasal Jose R HPI - History of Current Complaint Chief Complaint: UCRespiratory Stated Complaint: SINUS COMPLAINT Time Seen by Provider: 03/01/18 12:47 Hx Obtained From: Patient Hx Last Menstrual Period: 11/02/18 ?: No Onset/Duration: Sudden Onset Severity: Moderate Pain Intensity: 4 - Allergies/Home Medications Allergies/Adverse Reactions: Allergies Allergy/AdvReac Type Severity Reaction Status Date / Time erythromycin base Allergy Rash Verified 03/01/18 12:48 levofloxacin [From Levaquin] Allergy Rash Verified 03/01/18 12:48 moxifloxacin [From Avelox] Allergy Vomiting Verified 03/01/18 12:48 Penicillins Allergy Rash Verified 03/01/18 12:48 Quinolones Allergy Rash Verified 03/01/18 12:48 PMH/Surg Hx/FS Hx/Imm Hx Previously Healthy: Yes - Surgical History Surgical History: Yes Surgery Procedure, Year, and Place: Cholecystectomy, LEEP x3, tubal ligation thyroidectomy - Family History Known Family History: Positive: Unknown, Cardiac Disease, Hypertension - Social History Alcohol Use: Occasionally Substance Use Type: None Smoking Status (MU): Current Some Day Smoker Type: Cigarettes Length of Time of Smoking/Using Tobacco: 15 years on and off Household Exposure Type: Cigarettes - Immunization History Most Recent Influenza Vaccination: 5 yrs ago Most Recent Tetanus Shot: 5yrs ago Most Recent Pneumonia Vaccination: none Review of Systems Constitutional: Negative Skin: Negative Eyes: Negative ENT: Ear Ache, Nasal Discharge, Sinus Congestion Respiratory: Cough Cardiovascular: Negative Gastrointestinal: Negative Genitourinary: Negative Motor: Negative Neurovascular: Negative Musculoskeletal: Negative Neurological: Negative Psychological: Negative Is Patient Immunocompromised?: No All Other Systems Reviewed And Are Negative: Yes Physical Exam Triage Information Reviewed: Yes Appearance: Well-Nourished, Ill-Appearing, Pain Distress Vital Signs: Initial Vital Signs Temp 97.5 F 03/01/18 12:39 Pulse 75 03/01/18 12:39 Resp 18 03/01/18 12:39 BP 124/80 03/01/18 12:39 Pulse Ox 98 03/01/18 12:39 Vital Signs Reviewed: Yes Eye Exam: Normal ENT: Positive: Pharyngeal erythema, Nasal congestion, Nasal drainage, Sinus tenderness Dental Exam: Normal Neck exam: Normal Neck: Positive: Supple, Nontender, No Lymphadenopathy Respiratory Exam: Normal Respiratory: Positive: Chest non-tender, Lungs clear, Normal breath sounds Cardiovascular Exam: Normal Cardiovascular: Positive: RRR, No Murmur, Pulses Normal Abdominal Exam: Normal Bowel Sounds: Positive: Present Musculoskeletal Exam: Normal Neurological Exam: Normal Psychological Exam: Normal Skin Exam: Normal Throat Pain/Nasal Course/Dx - Course Course Of Treatment: hx obtained, exam performed ,meds reviewed, treated for sinusitis - Differential Dx/Diagnosis Differential Diagnosis/HQI/PQRI: Sinusitis Provider Diagnoses: hx obtained, exam performed ,meds reviewed treated for sinusitis Discharge - Sign-Out/Discharge Documenting (check all that apply): Discharge - Discharge Plan Condition: Stable Disposition: HOME Prescriptions: Azithromyxin JOLENE (NF) [Z-Jolene (Zithromax) 250 mg tabs #6] 2 tab PO .TODAY, THEN 1 DAILY #6 tab Patient Education Materials: Azithromycin (By mouth), Sinusitis (ED) Referrals: No Primary Care Phys,NOPCP [Primary Care Provider] - Additional Instructions: 1. I have given you a standard prescription of azithromycin, i could not find any literature that recommended a 10 days course. It looks like the 5 days course is what you have been given in the past based on your medical record here. 2. Follow up if symtpoms persist. - Billing Disposition and Condition Condition: STABLE Disposition: HOME
== END 2018-03-01 13:20 | disposition home or self-care (01) ==
LOC: UCEAST 12:30
DX: J32.9 Chronic sinusitis, unspecified (principal); Z88.1 Allergy status to other antibiotic agents; Z88.0 Allergy status to penicillin; Z88.8 Allergy status to other drugs, medicaments and biological substances; Z72.0 Tobacco use
CPT/HCPCS: 99212; G0463

== ENCOUNTER 2018-03-07 16:21 | Emergency (ER) | payer SELFPAY ==
--- NOTE | 2018-03-07 18:17 | RAD ---
CLINICAL HISTORY: Bloody diarrhea x1 month COMPARISON: Most recent comparison CT is dated February 01, 2018 TECHNIQUE: Noncontrast CT examination of the abdomen and pelvis from the lung bases through the initial tuberosities. FINDINGS: VISUALIZED LUNG BASES: The visualized lung bases are grossly clear. There is no pleural effusion. ABDOMEN AND PELVIS: Evaluation of the solid organs and vasculature is limited without intravenous contrast. The liver, spleen, pancreas and adrenal glands are grossly normal in appearance. The gallbladder is surgically absent with clips in the gallbladder fossa. The kidneys are normal in appearance without focal mass, calcification or signs of hydronephrosis. Evaluation of the gastrointestinal tract is limited without oral contrast. The proximal small bowel measures up to 3 mm in diameter with fluid in the lumen..The patient's normal appendix is identified in the right lower quadrant measuring just under 8 mm in diameter with gas in the lumen. The appearance is not significantly changed since the previous CT of the abdomen and pelvis. There is no gross retroperitoneal or mesenteric lymphadenopathy. The pelvic viscera is normal in appearance. The abdominal aorta and iliac arteries are normal in course and diameter. Degenerative changes include multilevel loss of intervertebral disc height involving the lower thoracic and lumbar spine.There are no sinister bone lesions. IMPRESSION: The left upper quadrant there are fluid-filled loops of small bowel that are top normal in diameter measuring 3 cm. No definite transition point is identified and there is gas and stool throughout the length of the colon. Infectious or inflammatory etiologies are favored.
[2018-03-07 18:21] LABS: ABS Basophils 0.2 10^3/ul (0-0.2); ABS Eosinophils 0.1 10^3/ul (0-0.6); ABS Lymphocytes 3.8 10^3/ul (1.0-4.8); ABS Monocytes 0.7 10^3/ul (0-0.8); ABS Neutrophils 5.6 10^3/ul (1.5-7.7); ABS Nucleated RBC 0 10^3/ul; Hematocrit 43 % (35-47); Hemoglobin 14.8 g/dl (12.0-16.0); Lymphocyte % 36.6 % (25-47); Mean Corpuscular HGB Conc 35 g/dl (31-36); Mean Corpuscular Hemoglobin 33 pg (27-31); Mean Corpuscular Volume 94 fL (80-97); Mean Platelet Volume 8.2 um3 (7.4-10.4); Nucleated Red Blood Cells % 0; Platelet Count 294 10^3/ul (150-450); Red Blood Count 4.53 10^6/ul (4.0-5.4); Red Cell Distribution Width 14 % (10.5-15); White Blood Count 10.2 10^3/ul (3.5-10.8)
[2018-03-07 18:39] LABS: EGFR Non-African American 68.7 (>60)
--- NOTE | 2018-03-07 19:50 | ED ---
Luh Nam Emily, scribed for Felisha Dye MD on 03/07/18 at 1747 . GI/ HPI - HPI Summary HPI Summary: This patient is a 42 year old F presenting to [facility] with a chief complaint of waxing and waning, bloody diarrhea that began 1 month ago. The patient rates the pain 6/10 in severity. Symptoms aggravated by nothing. Symptoms alleviated by nothing. Patient reports recent weight gain, LUQ abd pain, and nausea. Patient denies changes in appetite and dysuria. Pt reports being recently diagnosed as constipated and currently taking MiraLAX, Ducolax, Fibercon, and Mag Citrate (4 days ago) but inspite of taking laxatives, pt continues to have bloody diarrhea - History of Current Complaint Chief Complaint: EDAbdPain Stated Complaint: BOWEL ISSUES Hx Obtained From: Patient Hx Last Menstrual Period: 11/02/18 Onset/Duration: Started Weeks Ago, Still Present Timing: Constant, Lasting Weeks Severity: Moderate Current Severity: Moderate Pain Intensity: 6 Location of Pain: LUQ Associated Signs and Symptoms: Positive: Other: - Positive recent weight gain, LUQ abd pain, and nausea. Negative changes in appetite and dysuria - Allergy/Home Medications Allergies/Adverse Reactions: Allergies Allergy/AdvReac Type Severity Reaction Status Date / Time erythromycin base Allergy Rash Verified 03/01/18 12:48 levofloxacin [From Levaquin] Allergy Rash Verified 03/01/18 12:48 moxifloxacin [From Avelox] Allergy Vomiting Verified 03/01/18 12:48 Penicillins Allergy Rash Verified 03/01/18 12:48 Quinolones Allergy Rash Verified 03/01/18 12:48 Home Medications: Home Medications Atenolol TAB* [Tenormin TAB* 50 MG] 50 mg PO DAILY 03/07/18 [History Confirmed 03/07/18] Levothyroxine TAB* [Synthroid TAB*] 150 mcg PO DAILY 03/07/18 [History Confirmed 03/07/18] metFORMIN* [Glucophage 500 MG TAB *] 500 mg PO BID 03/07/18 [History Confirmed 03/07/18] PMH/Surg Hx/FS Hx/Imm Hx Previously Healthy: No Endocrine/Hematology History: Reports: Hx Diabetes - diet controled, Hx Thyroid Disease - removed Denies: Hx Systemic Lupus Erythematosus Cardiovascular History: Denies: Hx Congestive Heart Failure, Hx Hypertension Respiratory History: Denies: Hx Asthma, Hx Chronic Obstructive Pulmonary Disease (COPD) GI History: Reports: Hx Gastroesophageal Reflux Disease Denies: Hx Ulcer History: Denies: Hx Renal Disease Musculoskeletal History: Denies: Hx Rheumatoid Arthritis Sensory History: Reports: Hx Contacts or Glasses Opthamlomology History: Reports: Hx Contacts or Glasses - Cancer History Cancer Type, Location and Year: Cervical cancer - Surgical History Surgery Procedure, Year, and Place: Cholecystectomy, LEEP x3, tubal ligation thyroidectomy - Immunization History Date of Tetanus Vaccine: utd Date of Influenza Vaccine: none Infectious Disease History: No Infectious Disease History: Denies: Hx Clostridium Difficile, Hx Hepatitis, Hx Human Immunodeficiency Virus (HIV), Hx of Known/Suspected MRSA, Hx Shingles, Hx Tuberculosis, Hx Known/ Suspected VRE, Hx Known/Suspected VRSA, History Other Infectious Disease, Traveled Outside the in Last 30 Days - Family History Known Family History: Positive: Cardiac Disease, Hypertension - Social History Occupation: Employed Full-time Lives: Alone Alcohol Use: Occasionally Substance Use Type: Reports: None Hx Tobacco Use: Yes Smoking Status (MU): Current Some Day Smoker Type: Cigarettes Length of Time of Smoking/Using Tobacco: 15 years on and off Review of Systems Positive: Abdominal Pain, Diarrhea, Nausea, Other - Positive recent weight gain. Negative changes in appetite Negative: dysuria All Other Systems Reviewed And Are Negative: Yes Physical Exam - Summary Physical Exam Summary: Appearance: Well-appearing, Well-nourished Skin: Warm Eyes: Normal ENT: Normal Neck: Supple, nontender Respiratory: Clear to auscultation Cardiovascular: Regular rate, regular rhythm. Normal S1, S2. Abdomen: Soft, Moderate tenderness over LUQ, LLQ, and generalized distension. Musculoskeletal: Normal, Strength/ROM Intact Neurological: Normal, A&Ox3 Psychiatric: Normal General: No acute distress Triage Information Reviewed: Yes Vital Signs On Initial Exam: Initial Vitals Temp Pulse Resp BP Pulse Ox 97.3 F 70 18 151/75 96 03/07/18 16:31 03/07/18 16:31 03/07/18 16:31 03/07/18 16:31 03/07/18 16:31 Vital Signs Reviewed: Yes Diagnostics - Vital Signs Vital Signs Temp Pulse Resp BP Pulse Ox 03/07/18 16:31 97.3 F 70 18 151/75 96 - Laboratory Lab Results: Lab Results 03/07/18 03/07/18 Range/Units 18:00 18:00 WBC 10.2 (3.5-10.8) 10^3/ul RBC 4.53 (4.0-5.4) 10^6/ul Hgb 14.8 (12.0-16.0) g/dl Hct 43 (35-47) % MCV 94 (80-97) fL MCH 33 H (27-31) pg MCHC 35 (31-36) g/dl RDW 14 (10.5-15) % Plt Count 294 (150-450) 10^3/ul MPV 8.2 (7.4-10.4) um3 Neut % (Auto) 54.3 (38-83) % Lymph % (Auto) 36.6 (25-47) % [place] % (Auto) 6.6 (0-7) % Eos % (Auto) 1.0 (0-6) % Baso % (Auto) 1.5 (0-2) % Absolute Neuts (auto) 5.6 (1.5-7.7) 10^3/ul Absolute Lymphs (auto) 3.8 (1.0-4.8) 10^3/ul Absolute Monos (auto) 0.7 (0-0.8) 10^3/ul Absolute Eos (auto) 0.1 (0-0.6) 10^3/ul Absolute Basos (auto) 0.2 (0-0.2) 10^3/ul Absolute Nucleated RBC 0 10^3/ul Nucleated RBC % 0 Sodium 139 (139-145) mmol/L Potassium 3.8 (3.5-5.0) mmol/L Chloride 106 (101-111) mmol/L Carbon Dioxide 24 (22-32) mmol/L Anion Gap 9 (2-11) mmol/L BUN 14 (6-24) mg/dL Creatinine 0.90 (0.51-0.95) mg/dL Est GFR ( Amer) 88.3 (>60) Est GFR (Non-Af Amer) 68.7 (>60) BUN/Creatinine Ratio 15.6 (8-20) Glucose 115 H (70-100) mg/dL Calcium 9.7 (8.6-10.3) mg/dL Total Bilirubin 0.30 (0.2-1.0) mg/dL AST 15 (13-39) U/L ALT 20 (7-52) U/L Alkaline Phosphatase 53 (34-104) U/L C-Reactive Protein 2.72 (< 5.00) mg/L Total Protein 6.7 (6.4-8.9) g/dL Albumin 4.4 (3.2-5.2) g/dL Globulin 2.3 (2-4) g/dL Albumin/Globulin Ratio 1.9 (1-3) Lipase 28 (11.0-82.0) U/L Beta HCG, Quant < 0.60 mIU/mL Result Diagrams: 03/07/18 18:00 03/07/18 18:00 Lab Statement: Any lab studies that have been ordered have been reviewed, and results considered in the medical decision making process. - CT CT Abdomen/Pelvis CT Interpretation Completed By: Radiologist - Abdomen/Pelvis CT reveals, per radiologist, The left upper quadrant there are fluid-filled loops of small bowel that are top normal in diameter measuring 3 cm. No definite transition point is identified and there is gas and stool throughout the length of the colon. Infectious or inflammatory etiologies are favored. ED physician has reviewed this radiology report. 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 So pt agreed that she would make her own appt for GI [facility]ar instead of getting [facility] - Diagnoses Provider Diagnoses: Inflammation of small intestine - Physician Notifications Discussed Care Of Patient With: Angie Packer Time Discussed With Above Provider: 18:20 Instructed by Provider To: Other - Consult with Dr. Packer (GI) at 1820. She recommended pt stay as inpatient for scope procedure. Discharge - Sign-Out/Discharge Documenting (check all that apply): Discharge - Discharge Plan Condition: Stable Disposition: HOME Patient Education Materials: Bowel Obstruction (ED) Referrals: Wali Alvarez MD [Medical Doctor] - Angie Packer DO [Doctor of Osteopathy] - Additional Instructions: PLEASE FOLLOW UP WITH GI DOCTOR ON FRIDAY - Billing Disposition and Condition Condition: STABLE Disposition: HOME The documentation as recorded by the Luh purvis Emily accurately reflects the service I personally performed and the decisions made by me, Felisha Dye MD.
[2018-03-07 20:44] LABS: Urine Appearance Cloudy; Urine Blood 1+ (Negative); Urine Color Yellow; Urine Ketones Negative (Negative); Urine Protein Negative (Negative); Urine Specific Gravity 1.012 (1.010-1.030); Urine Urobilinogen Negative (Negative)
[2018-03-07 21:22] VITALS: BP 137/74
== END 2018-03-07 21:23 | disposition home or self-care (01) ==
LOC: ED 16:21
DX: K52.9 Noninfective gastroenteritis and colitis, unspecified (principal); E11.9 Type 2 diabetes mellitus without complications; K21.9 Gastro-esophageal reflux disease without esophagitis; F17.200 Nicotine dependence, unspecified, uncomplicated
CPT/HCPCS: 36415; 74176; 80053; 81003; 81015; 83690; 84702; 85025; 86140; 87086; 99282

== ENCOUNTER 2018-03-09 12:54 | Observation (INO) | payer MEDICAID ==
[2018-03-09] MEDS ORDERED: NS 0.9% 1000 ML* 2,000 ML IV ONE (13:22)
[2018-03-09 13:42] LABS: ABS Basophils 0.1 10^3/ul (0-0.2); ABS Eosinophils 0.1 10^3/ul (0-0.6); ABS Monocytes 0.5 10^3/ul (0-0.8); ABS Neutrophils 7.3 10^3/ul (1.5-7.7); ABS Nucleated RBC 0 10^3/ul; Eosinophil % 0.8 % (0-6); Hematocrit 43 % (35-47); Hemoglobin 14.7 g/dl (12.0-16.0); Lymphocyte % 27.3 % (25-47); Mean Corpuscular HGB Conc 34 g/dl (31-36); Mean Corpuscular Hemoglobin 32 pg (27-31); Mean Corpuscular Volume 94 fL (80-97); Mean Platelet Volume 8.4 um3 (7.4-10.4); Nucleated Red Blood Cells % 0.1; Platelet Count 287 10^3/ul (150-450); Red Blood Count 4.58 10^6/ul (4.0-5.4); Red Cell Distribution Width 14 % (10.5-15); White Blood Count 11.1 10^3/ul (3.5-10.8)
[2018-03-09 13:54] LABS: INR 0.9 (0.77-1.02)
[2018-03-09 13:55] LABS: Urine Appearance Clear; Urine Blood Negative (Negative); Urine Color Straw; Urine Ketones Negative (Negative); Urine Protein Negative (Negative); Urine Specific Gravity 1.006 (1.010-1.030); Urine Urobilinogen Negative (Negative)
[2018-03-09 14:07] LABS: EGFR Non-African American 78.7 (>60)
[2018-03-09] MEDS ORDERED: fentaNYL* 50 MCG/ML 2 ML VIAL (100 MCG VIAL) ONE (15:11)
[2018-03-09] MEDS ORDERED: Midazolam* 1 MG/ML 10 ML VIAL (10 MG) ONE (15:11)
[2018-03-09] MEDS ORDERED: Dextrose 50% Syringe 50 ML* 25 GM/50 ML SYRINGE IV PUSH PRN (15:34)
[2018-03-09] MEDS ORDERED: Ondansetron INJ* 2 MG/ML VIAL IV PRN (15:34)
[2018-03-09] MEDS ORDERED: Acetaminophen TAB* 325 MG PO PRN (15:34)
--- NOTE | 2018-03-09 16:11 | ED ---
Carley Nam Thomas, scribed for Giuliano Murdock MD on 03/09/18 at 1320 . GI/ HPI - HPI Summary HPI Summary: The patient is a 42 year old female who has been having bloody stools for the last eight weeks. She complains of left-sided abdominal pain, a chronic headache , diarrhea, and vomiting. She denies vaginal discharge. She was evaluated at [facility] two days ago and diagnosed with a small bowel obstruction. Gastroenterology wanted the patient to be admitted for a colonoscopy, but the patient elected to leave the ED and schedule a colonoscopy on her own. The patient presents again today at the advice of gastroenterology when she tried to get an appointment. - History of Current Complaint Chief Complaint: EDNauseaVomitDiarrh Time Seen by Provider: 03/09/18 13:09 Stated Complaint: POSS. GI BLOCK Hx Obtained From: Patient Hx Last Menstrual Period: 11/02/18 Onset/Duration: Still Present Timing: Constant Current Severity: Moderate Pain Intensity: 6 Associated Signs and Symptoms: Positive: Other: - Bloody stools, abd pain, SCOTT, diarrhea, vomiting Aggravating Factor(s): Nothing Alleviating Factor(s): Nothing - Allergy/Home Medications Allergies/Adverse Reactions: Allergies Allergy/AdvReac Type Severity Reaction Status Date / Time erythromycin base Allergy Rash Verified 03/01/18 12:48 levofloxacin [From Levaquin] Allergy Rash Verified 03/01/18 12:48 moxifloxacin [From Avelox] Allergy Vomiting Verified 03/01/18 12:48 Penicillins Allergy Rash Verified 03/01/18 12:48 Quinolones Allergy Rash Verified 03/01/18 12:48 PMH/Surg Hx/FS Hx/Imm Hx Endocrine/Hematology History: Reports: Hx Diabetes - diet controled, Hx Thyroid Disease - removed Denies: Hx Systemic Lupus Erythematosus Cardiovascular History: Denies: Hx Congestive Heart Failure, Hx Hypertension Respiratory History: Denies: Hx Asthma, Hx Chronic Obstructive Pulmonary Disease (COPD) GI History: Reports: Hx Gastroesophageal Reflux Disease Denies: Hx Ulcer History: Denies: Hx Renal Disease Musculoskeletal History: Denies: Hx Rheumatoid Arthritis Sensory History: Reports: Hx Contacts or Glasses Opthamlomology History: Reports: Hx Contacts or Glasses - Cancer History Cancer Type, Location and Year: Cervical cancer - Surgical History Surgery Procedure, Year, and Place: Cholecystectomy, LEEP x3, tubal ligation thyroidectomy - Immunization History Date of Tetanus Vaccine: utd Date of Influenza Vaccine: none Infectious Disease History: No Infectious Disease History: Denies: Hx Clostridium Difficile, Hx Hepatitis, Hx Human Immunodeficiency Virus (HIV), Hx of Known/Suspected MRSA, Hx Shingles, Hx Tuberculosis, Hx Known/ Suspected VRE, Hx Known/Suspected VRSA, History Other Infectious Disease, Traveled Outside the [place] in Last 30 Days - Family History Known Family History: Positive: Cardiac Disease, Hypertension - Social History Alcohol Use: Occasionally Substance Use Type: Reports: None Hx Tobacco Use: Yes Smoking Status (MU): Current Some Day Smoker Type: Cigarettes Length of Time of Smoking/Using Tobacco: 15 years on and off Review of Systems Negative: Fever Positive: Abdominal Pain, Vomiting, Diarrhea, Other - Bloody stools Negative: discharge Positive: Headache All Other Systems Reviewed And Are Negative: Yes Physical Exam - Summary Physical Exam Summary: General: well-appearing, no pain distress Skin: warm, color reflects adequate perfusion, dry Head: normal Eyes: EOMI, JANIS ENT: normal Neck: supple, nontender Respiratory: CTA, breath sounds present Cardiovascular: RRR Abdomen: Soft. She is tender to her LUQ and LLQ. Bowel: hypoactive bowel sounds Musculoskeletal: normal, strength/ROM intact Neurological: normal, sensory/motor intact, A&O x3 Psychological: affect/mood appropriate Triage Information Reviewed: Yes Vital Signs On Initial Exam: Initial Vitals Temp Pulse Resp BP Pulse Ox 97.4 F 71 16 145/85 97 03/09/18 12:58 03/09/18 12:58 03/09/18 12:58 03/09/18 12:58 03/09/18 12:58 Vital Signs Reviewed: Yes Diagnostics - Vital Signs Vital Signs Temp Pulse Resp BP Pulse Ox 03/09/18 12:58 97.4 F 71 16 145/85 97 - Laboratory Lab Results: Lab Results 03/09/18 03/09/18 03/09/18 Range/Units 13:33 13:33 13:33 WBC 11.1 H (3.5-10.8) 10^3/ul RBC 4.58 (4.0-5.4) 10^6/ul Hgb 14.7 (12.0-16.0) g/dl Hct 43 (35-47) % MCV 94 (80-97) fL MCH 32 H (27-31) pg MCHC 34 (31-36) g/dl RDW 14 (10.5-15) % Plt Count 287 (150-450) 10^3/ul MPV 8.4 (7.4-10.4) um3 Neut % (Auto) 66.1 (38-83) % Lymph % (Auto) 27.3 (25-47) % [place] % (Auto) 4.8 (0-7) % Eos % (Auto) 0.8 (0-6) % Baso % (Auto) 1.0 (0-2) % Absolute Neuts (auto) 7.3 (1.5-7.7) 10^3/ul Absolute Lymphs (auto) 3.0 (1.0-4.8) 10^3/ul Absolute Monos (auto) 0.5 (0-0.8) 10^3/ul Absolute Eos (auto) 0.1 (0-0.6) 10^3/ul Absolute Basos (auto) 0.1 (0-0.2) 10^3/ul Absolute Nucleated RBC 0 10^3/ul Nucleated RBC % 0.1 INR (Anticoag Therapy) 0.90 (0.77-1.02) APTT 31.8 (26.0-36.3) seconds Sodium 139 (139-145) mmol/L Potassium 3.9 (3.5-5.0) mmol/L Chloride 106 (101-111) mmol/L Carbon Dioxide 22 (22-32) mmol/L Anion Gap 11 (2-11) mmol/L BUN 12 (6-24) mg/dL Creatinine 0.80 (0.51-0.95) mg/dL Est GFR ( Amer) 101.2 (>60) Est GFR (Non-Af Amer) 78.7 (>60) BUN/Creatinine Ratio 15.0 (8-20) Glucose 110 H (70-100) mg/dL Lactic Acid (0.5-2.0) mmol/L Calcium 9.9 (8.6-10.3) mg/dL Total Bilirubin 0.40 (0.2-1.0) mg/dL AST 16 (13-39) U/L ALT 22 (7-52) U/L Alkaline Phosphatase 53 (34-104) U/L C-Reactive Protein 1.87 (< 5.00) mg/L Total Protein 6.8 (6.4-8.9) g/dL Albumin 4.5 (3.2-5.2) g/dL Globulin 2.3 (2-4) g/dL Albumin/Globulin Ratio 2.0 (1-3) Urine Color Urine Appearance Urine pH (5-9) Ur Specific [place] (1.010-1.030) Urine Protein (Negative) Urine Ketones (Negative) Urine Blood (Negative) Urine Nitrate (Negative) Urine Bilirubin (Negative) Urine Urobilinogen (Negative) Ur Leukocyte Esterase (Negative) Urine Glucose (Negative) 03/09/18 03/09/18 Range/Units 13:33 13:45 WBC (3.5-10.8) 10^3/ul RBC (4.0-5.4) 10^6/ul Hgb (12.0-16.0) g/dl Hct (35-47) % MCV (80-97) fL MCH (27-31) pg MCHC (31-36) g/dl RDW (10.5-15) % Plt Count (150-450) 10^3/ul MPV (7.4-10.4) um3 Neut % (Auto) (38-83) % Lymph % (Auto) (25-47) % [place] % (Auto) (0-7) % Eos % (Auto) (0-6) % Baso % (Auto) (0-2) % Absolute Neuts (auto) (1.5-7.7) 10^3/ul Absolute Lymphs (auto) (1.0-4.8) 10^3/ul Absolute Monos (auto) (0-0.8) 10^3/ul Absolute Eos (auto) (0-0.6) 10^3/ul Absolute Basos (auto) (0-0.2) 10^3/ul Absolute Nucleated RBC 10^3/ul Nucleated RBC % INR (Anticoag Therapy) (0.77-1.02) APTT (26.0-36.3) seconds Sodium (139-145) mmol/L Potassium (3.5-5.0) mmol/L Chloride (101-111) mmol/L Carbon Dioxide (22-32) mmol/L Anion Gap (2-11) mmol/L BUN (6-24) mg/dL Creatinine (0.51-0.95) mg/dL Est GFR ( Amer) (>60) Est GFR (Non-Af Amer) (>60) BUN/Creatinine Ratio (8-20) Glucose (70-100) mg/dL Lactic Acid 1.1 (0.5-2.0) mmol/L Calcium (8.6-10.3) mg/dL Total Bilirubin (0.2-1.0) mg/dL AST (13-39) U/L ALT (7-52) U/L Alkaline Phosphatase (34-104) U/L C-Reactive Protein (< 5.00) mg/L Total Protein (6.4-8.9) g/dL Albumin (3.2-5.2) g/dL Globulin (2-4) g/dL Albumin/Globulin Ratio (1-3) Urine Color Straw Urine Appearance Clear Urine pH 6.0 (5-9) Ur Specific [place] 1.006 L (1.010-1.030) Urine Protein Negative (Negative) Urine Ketones Negative (Negative) Urine Blood Negative (Negative) Urine Nitrate Negative (Negative) Urine Bilirubin Negative (Negative) Urine Urobilinogen Negative (Negative) Ur Leukocyte Esterase Negative (Negative) Urine Glucose Negative (Negative) Result Diagrams: 03/09/18 13:33 03/09/18 13:33 Lab Statement: Any lab studies that have been ordered have been reviewed, and results considered in the medical decision making process. GIGU Course/Dx - Course Course Of Treatment: DISCUSSED WITH MAGALY GREGORY. ADMIT HOSPITALIST. - Diagnoses Provider Diagnoses: Left sided abdominal pain - Physician Notifications Discussed Care Of Patient With: Wali Alvarez Time Discussed With Above Provider: 14:00 Instructed by Provider To: Other - MAGALY Mcmanus, recommends admission. Dr. Edwards, hospitalist, will admit the patient. Discharge - Sign-Out/Discharge Documenting (check all that apply): Discharge - patient is admitted by Dr. Edwards - Discharge Plan Condition: Stable Disposition: ADMITTED TO [facility] Referrals: No Primary Care Phys,NOPCP [Primary Care Provider] - - Billing Disposition and Condition Condition: STABLE Disposition: [facility] The documentation as recorded by the scribCarley lovett Thomas accurately reflects the service I personally performed and the decisions made by me, Giuliano Murdock MD.
[2018-03-09] MEDS ORDERED: PEG 3000 GI LAVAGE* 1 GALLON PO ONE (17:00)
[2018-03-09] MEDS: Insulin LISPRO* 1 UNITS UNIT SUBCUT SCH ×2 (17:43→21:41)
--- NOTE | 2018-03-09 18:13 | CONS ---
CONSULTATION REPORT: DATE OF CONSULT: 03/09/18 REQUESTING PHYSICIAN: Dr. Murdock. INDICATION: Bloody diarrhea. NARRATIVE: Ms. Chang is a 42-year-old female who came to the emergency room on Friday night. The Emergency Room wanted to admit her. GI had been called and recommended admission with the potential colonoscopy the next day. The patient refused. She stated that she did not have anybody to take care of her children and wanted to be discharged. According to the patient's nurse today, the patient then went to [facility] to be evaluated. I do not know the results of it. Patient's states that she has been having months of diarrhea, left sided abdominal pain and blood in her stool. She states that she will have up to 10 to 15 bowel movement per day. She is a somewhat difficult historian. She does tell me that she was constipated in the past and has been taking laxatives and was having diarrhea after taking the laxatives. I asked her if she was still taking the laxatives and she says no over the past 3 months , but she has been having profuse diarrhea. She has pain in the left side of her abdomen. No radiation. It is there constant. It feels hot and sharp. She does have blood in her stool at least 50% of the time. She describes it as bright red. She often times will just have pure blood dripping out of her. She does have nausea and vomiting. She states that she vomited this morning, vomits bile. No fevers or chills. No history of any of this before. She denies taking any new medications prior to this happening. She did have lyme disease back in September 2017 for which she took doxycycline. She again denies any fevers or chills. She denies any sick contacts. PAST MEDICAL HISTORY: Hypothyroid, hypertension, diabetes. She does not have a PCP. PAST SURGICAL HISTORY: Include cholecystectomy, tubal ligation, hypothyroid. ALLERGIES: ERYTHROMYCIN, LEVOFLOXACIN, MOXIFLOXACIN, PENICILLIN and QUINOLONES. FAMILY HISTORY: Diverticulosis and Crohn's in her grandmother. REVIEW OF SYSTEMS: Twelve systems were reviewed, other than mentioned in the HPI, were unremarkable. PHYSICAL EXAM: Temperature is 97.4, blood pressure 145/85, pulse is 71, O2 sat is 97%. General: Well-appearing female, lying flat in bed, texting constantly on her telephone. She looks very well. She is alert and oriented. HEENT: Mucous membranes are moist without lesions, ulcers or exudates. Neck: Supple. Trachea is midline. Head is normocephalic, atraumatic. Heart: Regular rate and rhythm. No murmurs, rubs or gallops. Lungs: Clear to auscultation bilaterally. No wheezes, rales or rhonchi. Abdomen: Obese, positive bowel sounds. It is soft, tender on the right side. No rebound, no guarding. Slight epigastric tenderness, no tenderness on the right side. No masses are felt. Skin is warm and dry. She does have tattoos. Musculoskeletal: No CVA or spinal tenderness to palpation. Lymph: No supraclavicular or cervical lymphadenopathy. DIAGNOSTIC STUDIES/LAB DATA: Of note, white count is 11.1, platelets of 287, hemoglobin is 14.7, INR 0.9, BUN 12, creatinine 0.8. LFTs are normal. CRP is 1.87. She has a CT from the , no oral contrast was given, which showed a possible small bowel dilatation. ASSESSMENT AND PLAN: This is a 42-year-old female with bloody diarrhea for many months including abdominal pain. She does have a slightly increased white blood cell count, possible etiologies would include irritable bowel disease, irritable bowel syndrome with hemorrhoids. Given her long history of diarrhea and blood in the stool, I think she does need a colonoscopy. I discussed this with her. We will make arrangements for the colonoscopy for tomorrow. I will also check stool studies including C. diff given her doxycycline use back in September. She will need clears today. She can start a gallon of Adyen at 5 p.m. She should be n.p.o. after midnight for a colonoscopy tomorrow with Dr. Ann. [id number]/[facility] #: [id number] PRATE[place]
--- NOTE | 2018-03-09 20:08 | HP ---
CC: Dr. Alvarez * HISTORY AND PHYSICAL: DATE OF ADMISSION: 03/09/18 TIME OF EVALUATION: 3 p.m. PRIMARY CARE PROVIDER: The patient has no primary care provider at this time. CONSULTING QUALITY ASSURANCE SUPERVISOR CHASSIS: Dr. Alvarez. CHIEF COMPLAINT: Abdominal pain. HISTORY OF PRESENT ILLNESS: Ms. Chang is a 42-year-old lady with a past medical history of hypertension, diabetes, hypothyroidism that presents to the emergency room with complaints of left-sided abdominal pain. The patient states that she has had this pain for a couple of months associated with multiple episodes of diarrhea. She describes 10 to 15 bowel movements a day, liquid with mucus, and states that 50% of the time she sees bright red blood associated with it. She has moved back to the area since August 2017, but she was not able to arrange a primary care provider and has had multiple ED visits. The last one was on 03/07/18, when she had a CT of the abdomen and pelvis that showed fluid-filled loops of small bowel in the left upper quadrant measuring top normal in diameter up to 3 cm. There is no definite transition point and there was gas and stool throughout the length of the colon. At that time, the recommendation was for the patient should be admitted for further evaluation, but she declined it due to needing to make arrangements for child therapist. She tried to schedule an appointment with Gastroenterology as outpatient today and they recommended that she return to the emergency room for admission. She denies fever, chills, weight loss. She states that she has some nausea, but no vomiting and her symptoms are not associated with food, she states (it is bad no matter what I eat). PAST MEDICAL HISTORY: 1. Diabetes. 2. Hypertension. 3. Ciara's thyroiditis requiring thyroidectomy, now with hypothyroidism. 4. Obesity with a BMI of 34. MEDICATION LIST: 1. Atenolol 50 mg p.o. daily. 2. Metformin 500 mg p.o. b.i.d. 3. Levothyroxine 150 mcg p.o. daily. ALLERGIES: With ERYTHROMYCIN; LEVOFLOXACIN; PENICILLIN, the patient had a rash ; with MOXIFLOXACIN, she had vomiting. FAMILY HISTORY: Mother has diabetes, hypertension, had a TIA. Father has a history of coronary artery disease. Siblings have a history of nephrolithiasis and hypertension. SOCIAL HISTORY: The patient is a smoker 1 pack every 3 days. Occasional alcohol. No drugs. The surrogate decision maker is her brother, Mo Chang, phone number is [phone]. REVIEW OF SYSTEMS: A 14-point review of systems was performed and all the pertinent negative and positive findings are in the HPI. PHYSICAL EXAMINATION GENERAL: The patient is a pleasant young lady, sitting up in bed in no acute distress. VITAL SIGNS: Temperature 97.4, heart rate is 66, respiratory rate 16, oxygen saturation is 97% on room air, blood pressure is 133/61. HEENT: Pupils are equal. Moist mucous membranes. CHEST: Breath sounds clear bilaterally. No added sounds. CVS: Normal S1, S2. Regular rate and rhythm. ABDOMEN: Soft, nontender, nondistended. Bowel sounds are present. EXTREMITIES: Mild left upper quadrant tenderness. No guarding, no rebound. NEURO: She is alert, awake, oriented x3. Able to move all 4 extremities. ASSESSMENT AND PLAN: Ms. Chang is a 42-year-old female with past medical history of hypertension, diabetes, hypothyroidism that presents to the emergency room with complaints of a couple of months of abdominal pain associated with diarrhea. 1. Abdominal pain. Etiology is unclear at this time, but as the patient has had symptoms for a couple of months and has had difficulty to arrange workup as outpatient, she will be admitted as observation for further evaluation. She will be prepped for a colonoscopy tomorrow and she will be seen in consultation by Gastroenterology. 2. Possible lower gastrointestinal bleed. The patient states that she has blood in her stool 50% of the time, but her hemoglobin is 14.7 at this point. We are going to check her stool for occult blood, but I believe her colonoscopy may give us more answer. 3. Type 2 diabetes. Metformin is on hold for now and we are going to check her fingersticks and cover with lispro sliding scale. 4. Hypertension. We will continue atenolol. 5. Hypothyroidism. We will check TSH, but she does not have any overt signs of hypothyroidism that could associate her diarrhea with her thyroid. We will continue her levothyroxine on the current dose. 6. DVT prophylaxis. The patient has a score of 2 on the DVT Prophylaxis Risk Assessment Guide, but pharmacological prophylaxis is contraindicated in the setting of possible gastrointestinal bleed. She will have SCDs while in bed. 7. Code status is full. TIME SPENT: Approximately 50 minutes was spent with the patient's interview, medical records review, physical examination to complete this admission, more than half of this time was spent [id number] with patient and coordination of care. [id number]/[facility] #: [id number] MTDD
[2018-03-10 05:21] LABS: ABS Basophils 0.1 10^3/ul (0-0.2); ABS Eosinophils 0.1 10^3/ul (0-0.6); ABS Lymphocytes 2.7 10^3/ul (1.0-4.8); ABS Monocytes 0.6 10^3/ul (0-0.8); ABS Neutrophils 3.2 10^3/ul (1.5-7.7); ABS Nucleated RBC 0 10^3/ul; Eosinophil % 1.1 % (0-6); Hematocrit 40 % (35-47); Hemoglobin 13.4 g/dl (12.0-16.0); Lymphocyte % 40.9 % (25-47); Mean Corpuscular HGB Conc 34 g/dl (31-36); Mean Corpuscular Hemoglobin 32 pg (27-31); Mean Corpuscular Volume 95 fL (80-97); Mean Platelet Volume 8.4 um3 (7.4-10.4); Nucleated Red Blood Cells % 0.1; Platelet Count 266 10^3/ul (150-450); Red Blood Count 4.23 10^6/ul (4.0-5.4); Red Cell Distribution Width 14 % (10.5-15); White Blood Count 6.7 10^3/ul (3.5-10.8)
[2018-03-10 05:42] LABS: EGFR Non-African American 86.1 (>60)
[2018-03-10] MEDS ORDERED: Levothyroxine TAB* 150 MCG TAB PO SCH (06:00)
[2018-03-10] MEDS: Insulin LISPRO* 1 UNITS UNIT SUBCUT SCH ×3 (08:00→17:25)
[2018-03-10] MEDS ORDERED: Atenolol TAB* 50 MG PO SCH (09:00)
[2018-03-10] MEDS ORDERED: fentaNYL* 50 MCG/ML 2 ML VIAL (100 MCG VIAL) ONE ×2 (15:11)
[2018-03-10] MEDS ORDERED: Midazolam* 1 MG/ML 10 ML VIAL (10 MG) ONE ×2 (15:11)
[2018-03-10 17:17] VITALS: BP 129/77
--- NOTE | 2018-03-10 23:01 | DS ---
CC: Dr. Alvarez; Dr. Ann * DISCHARGE SUMMARY: DATE OF ADMISSION: 03/09/18 DATE OF DISCHARGE: 03/10/18 PRIMARY CARE PROVIDER: None. DISCHARGE DIAGNOSES: 1. Recurrent diarrhea with intermittent blood in the stool as well as left lower quadrant abdominal pain. 2. Status post colonoscopy with preliminary results unremarkable. MEDICATIONS AT DISCHARGE: Unchanged from admission and include: 1. Atenolol 50 mg daily. 2. Levothyroxine 150 mcg daily. 3. Metformin 500 mg b.i.d. CONSULTATIONS DURING THE HOSPITAL STAY INCLUDED: Included Dr. Alvarez and Dr. Ann from Gastroenterology. PROCEDURES PERFORMED: Colonoscopy performed on 03/10/18, which was grossly unremarkable. Biopsies were taken. HOSPITALIZATION COURSE: Angie Chang is a 42-year-old female with history of diabetes, hypertension, who has had problems with left-sided abdominal pain and diarrhea, intermittent blood in the stool for the past several months. She came into the hospital on 03/09/18, was seen by Dr. Alvarez in consultation who recommended for the patient to be admitted and have a colonoscopy in the morning. Dr. Ann performed the colonoscopy on 03/10/18 from the verbal report I received from Dr. Guerrero, the colonoscopy was grossly unremarkable. Biopsies were taken and pathology is pending. Furthermore, the patient complained of intermittent blood in the stool. The patient's stool Hemoccult was negative and she had no evidence of anemia at admission. The patient has not had a primary care provider and our office is trying to arrange it at the time of discharge. Apart from primary care provider, the patient is asked to follow up with Dr. Guerrero in approximately 1 month to follow up colon biopsy results. PHYSICAL EXAM AT DISCHARGE: Blood pressure 136/79, heart rate of 58 and regular , respiratory rate 16, oxygen saturation 99% on room air, temperature 97.4. General: The patient is a very pleasant 42-year-old female in no acute distress. Alert, awake, and oriented x3. HEENT: Head: Atraumatic, normocephalic. Eyes: Pupils are equal, reactive to light and accommodation. Oropharynx clear. Mucosa moist. Neck: Supple. No JVD. No bruits bilaterally. Cardiovascular: Regular rate and rhythm. No murmur. Respiratory : Clear to auscultation bilaterally. Abdomen: Soft, nontender. Bowel sounds present in all 4 quadrants. Extremities: There is no edema. Pulses are +2 bilaterally. No clubbing or cyanosis. On neuro evaluation, speech clear. Cranial nerves II through XII grossly intact. Motor strength is 5/5 bilaterally. Please note that this is a short summary of the patient's hospitalization. Please refer to further medical records for details. [id number]/[facility] #: [id number] [facility]
--- NOTE | 2018-03-10 23:01 | PRO ---
DATE: 03/10/18 - ROOM #[id number] REFERRING PHYSICIAN: Juana Kohli* PROCEDURE: Colonoscopy and ileoscopy with biopsy of 3 segments to rule out microscopic colitis INDICATION: This 42-year-old woman comes in with complaints of left-sided abdominal pain and variable stools often described as diarrhea though in the emergency room on multiple occasions, she was given stool softeners or MiraLAX. She also complained of rectal bleeding stating it was a very common thing, but later details revealed it was 3 or 4 days per month several days each session. She states her usual bowel pattern had been twice a day. She has not been running any fever and has not lost any weight. Her sleep she says is not great , but is not affected by bowel complaints. One grandmother had diverticulitis and another reportedly Crohn's disease. During a sequence of emergency room visits with 3 CTs of the abdomen and pelvis in November, January and February 2018, a variety of intestinal luminal abnormalities are mentioned. On 03/07/18, there was a question of fluid-filled loops of small bowel. The timing of that viz a viz is not clear. Labs on 03/09/18 showed Hg of 14.7, hematocrit 43, MCV 94, white count 11.1 and CRP 1.87. LFT is normal, albumin is 4.5, creatinine is 0.8, BUN 12. ENDOSCOPIST: Dr Ann MEDICATIONS: Midazolam 10, fentanyl 100. FINDINGS: She is a substantially overweight woman, in no distress. Her skin is tanned (spray application) and without other abnormality. The abdomen is soft and nontender. Perianal inspection and rectal are normal. Initial views show a fair to poor prep, but it is all fluid that can be aspirated. The mucosa appears normal. The mucosa is normal in the rectosigmoid , sigmoid, descending, transverse and right colon. The cecum, ileocecal valve, 25 cm terminal ileum, and the right colon directly was normal. During slow withdrawal, all areas appear normal. Biopsies were taken from the right transverse and left colon. Rectal retroflexion was normal without remarkable hemorrhoids. IMPRESSION: 1. Normal colonoscopy and ileoscopy. 2. Reports of diarrhea - probably a paradoxical effect from irritable bowel syndrome. 3. Rectal bleeding - probably benign and functional - the patient needs a primary care provider to put together all her various complaints and findings and evaluate and treat on a planned basis. Notable that 90% of her dozen or so encounters over the last year had been to the emergency room. Addendum: 3 sites + for microscopic colitis [id number]/[facility] #: [id number] PRATEEK
== END 2018-03-10 18:55 | disposition home or self-care (01) ==
LOC: ED 12:54 → MED 15:29
PROVIDERS: ADMIT Internal Medicine; ATTEND Internal Medicine
PROC: 0DBE8ZX Excision of Large Intestine, Via Natural or Artificial Opening Endoscopic, Diagnostic (ICD-10-PCS; principal; 2018-03-09)
DX: K52.832 Lymphocytic colitis (principal); R19.7 Diarrhea, unspecified; R10.32 Left lower quadrant pain; Z98.890 Other specified postprocedural states; K64.9 Unspecified hemorrhoids; E11.9 Type 2 diabetes mellitus without complications; I10 Essential (primary) hypertension; E06.3 Autoimmune thyroiditis; E66.9 Obesity, unspecified; Z68.34 Body mass index [BMI] 34.0-34.9, adult
CPT/HCPCS: 36415; 80048; 80053; 81003; 82270; 83605; 84443; 85025; 85610; 85730; 86140; 87045; 87046; 87328; 87329; 87493; 87899; 88305; 96374; 99156; 99157; 99284; A9270-GY; G0378; J2250; J3010

== ENCOUNTER 2018-04-28 18:49 | Emergency (ER) | payer MEDICAID, OTHER ==
--- OUTSIDE RECORDS SUMMARY | 2018-04-28 19:09 | XMS REPORT ---
:1975 External Reference #:[id number] Author Organization [facility] Address [address] [place] [address] Phone [phone] Care Team Providers Name Role Phone Jennifer Davila RN FNP Care Team Information Warp Worker Unavailable Jennifer Davila RN FNP Primary Care Physician Unavailable Payers Type Date Identification Numbers Payment Provider Subscriber Commercial Effective: Policy Number: [id number] Better Angie Chang 2018 [employer] Group Number: Norma #[id number] [address] Group Name: Medicaid [facility] [address] PayID: [id number] Problems Date Description Provider Status Onset: 04/22/2018 Unsp viral infection with skin and Tony Thakkar M.D. Active mucous membrane lesions Onset: 04/22/2018 Atopic dermatitis Tony Thakkar M.D. Active Onset: 04/22/2018 Allergic rhinitis Tony Thakkar M.D. 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 Environment Does not have an air conditioner Home Environment Stairs are present Home Environment Unfinished Basement Home Environment Finished Basement Home Environment The basement is wet Home Environment Down Comforter Home Environment Mattress is 4 years old Home Environment Mattress is not encased in an allergy proof case Home Environment Regular Mattress Home Environment Pillows are not encased in an allergy proof case Home Environment Pillows are polyester Home Environment Pillows contain feathers Home Environment Pillows are rubber (foam) Home Environment Does not use a dehumidifier Home Environment There are draperies in the home Home Environment The home is not jannette Home Environment The floors are wood Home Environment Uses oil heating Smoke-Free Home is smoke-free Smoke-Free Work is smoke-free Pets 1 cat 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 M.D. Levocetirizine 04/22 Active Tablets 5mg 30tab take one J30.89 Tony Garcia Dihydrochloride /2017 s at Thakkar, bedtime M.D. every night Methylprednisolone 00 Active TBPK 4mg take as Unknown /0000 directed on pack Triamcinolone Active Lotion 0.1% apply To Unknown Acetonide /0000 Dry Skin one to two times a day Benadryl Allergy Active Capsules 25mg 1 by Unknown /0000 mouth at bedtime as needed for itchy skin/rash . Levothyroxine Sodium Active Tablets 150mcg Unknown /0000 Vital Signs Date Vital Result Comment 04/22/2018 Height 66 inches 5'6" Weight 216.00 lb Weight in kg's 97.978 Respiratory Rate 18 /min Heart Rate 66 /min O2 % BldC Oximetry 96 % BP Systolic 126 mmHg BP Diastolic 78 mmHg BMI (Body Mass Index) 34.9 kg/m2 Results Description No Information Procedures Date CPT Code Description Status 04/22/2018 95254 Skin Test Scratch # Of Units ____ Completed Encounters Type Date Location Provider CPT E/M Dx Office Visit 04/22/2018 9:00a [facility] Tony Thakkar, [address] J30Arina M.Reema L20.9 B09 Plan of Care Future Appointment(s):05/06/2018 10:00 am - [facility]04/22/2018 - Tony Thakkar M.D.J30.89 Other allergic [id number] Atopic dermatitis, [id number] Unsp viral infection with skin and mucous membrane lesionsNew Medication:Levocetirizine Dihydrochloride 5 mgFollow up:2-3 weeksRecommendations:Refrain from wearing perfumes/scented colognes while visiting our office.
--- OUTSIDE RECORDS SUMMARY | 2018-04-28 19:09 | XMS REPORT ---
:1975 External Reference #:[id number] Author Organization [facility] Address [address] [address] Phone [phone] Care Team Providers Name Role Phone Maya Parra MD Primary Care Physician Unavailable Payers Type Date Identification Numbers Payment Provider Subscriber Commercial Policy Number: [id number] Cornelio Chang Group Number: [id number] [address] PayID: [id number] [place] [address] Medigap Part B Effective: 2017 Policy Number: [id number] Medicaid Angie Dakota Bernardo Expires: 2018 Group Name: 1 1 [address] PayID: [id number] [place] [address] Problems Date Description Provider Status Onset: 03/27/2018 Hypothyroidism Reynaldo Davenport NP Active Onset: 03/27/2018 Essential hypertension Reynaldo Davenport NP Active Onset: 03/27/2018 Impaired fasting glycaemia Reynaldo Davenport NP Active Family History Date Family Member(s) Problem(s) Comments Father OK Father Hypothyroidism Mother Heart Disease Mother Cerebrovascular Accident (CVA) Mother Hypothyroidism Mother Hypertension Mother Diabetes Siblings 2 brothers. 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 Smoked 1/2ppd from [age] Exercise Type/Frequency Exercises regularly Allergies, Adverse Reactions, Alerts Date Description Reaction Status Severity Comments 03/27/2018 Levaquin hives and swelling active 03/27/2018 Avelox hives and swelling active 03/27/2018 Erythromycin hives and swelling active 03/27/2018 Eggplant hives active Medications Medication Date Status Form Strength Qnty SIG Indications Ordering Provider Triamcinolone Hx Lotion 0.1% 60units apply to R21 Jennifer Acetonide 018 - dry skin Varn, N.P. once or 018 twice daily Medrol Hx TBPK 4mg 21units 6 by R21 Jennifer 018 - mouth Varn, N.P. day 1, 5 018 by mouth day 2, 4 by mouth day 3, 3 by mouth day 4, 2 by mouth day 5, 1 by mouth day 6 Atenolol Active Tablets 50mg 30tabs [address] SUPERVISOR OF ENGINES every day Levothyroxine Active Tablets 150mcg 30tabs 1 by Reynaldo Davenport Sodium [address] SUPERVISOR OF ENGINES every day Metformin HCL Active Tablets 500mg 60tabs [address] SUPERVISOR OF ENGINES twice a day Vital Signs Date Vital Result Comment 04/21/2018 Height 65 inches 5'5" Weight 220.50 lb Heart Rate 69 /min BP Systolic 127 mmHg BP Diastolic 79 mmHg O2 % BldC Oximetry 97 % BMI (Body Mass Index) 36.7 kg/m2 03/27/2018 Height 65 inches 5'5" Weight 217.50 lb Heart Rate 75 /min BP Systolic 132 mmHg BP Diastolic 78 mmHg Body Temperature 96.9 F O2 % BldC Oximetry 97 % BMI (Body Mass Index) 36.2 kg/m2 Results Description No Information Procedures Description No Information Encounters Type Date Location Provider CPT E/M Dx Office Visit 03/27/2018 11:00a [facility] [place] [address] E03.9 [place] I10 R10.9 Office Visit 03/10/2018 12:52p [facility] Juana Kohli, [address] R10.12 Assoc, Hospitalists Neisha R19.7 Office Visit 03/09/2018 12:51p [facility] ,gerard Edwards [address] R10.12 Hospitalsami Driver R19.7 Office Visit 11/03/2014 6:05p [facility] ,gerard Mcgill M.D. 15588 786.50 Hospitalists Plan of Care Future Appointment(s):09/28/2018 9:00 am - Reynaldo Davenport NP at [facility] Internal Medicine - Jsgayzqul74/29/2018 - Jennifer Davila N.P.R21 Rash and other nonspecific skin eruptionNew Medication:Triamcinolone Acetonide 0.1 %Medrol 4 mgComments:For your rash I have sent a prescription to the pharmacy for Triamcinolone cream. Apply this to the affected areas until clear. I have also sent in a prescription for Medrol dose pack. This is a 6 day course of steroids.Continue to take the Benadryl at night. You jmay find taking Cetirizine 10 mg hehpfu along with Pepcid AC.Referral:[facility], Allergy & Immunology
[2018-04-28] MEDS ORDERED: NS 0.9% 1000 ML* 1,000 ML IV ONE (20:03)
[2018-04-28 20:51] LABS: ABS Basophils 0.1 10^3/ul (0-0.2); ABS Eosinophils 0.1 10^3/ul (0-0.6); ABS Lymphocytes 3.1 10^3/ul (1.0-4.8); ABS Monocytes 0.6 10^3/ul (0-0.8); ABS Neutrophils 5.7 10^3/ul (1.5-7.7); ABS Nucleated RBC 0 10^3/ul; Eosinophil % 1.5 % (0-6); Hematocrit 43 % (35-47); Hemoglobin 14.8 g/dl (12.0-16.0); Lymphocyte % 31.9 % (25-47); Mean Corpuscular HGB Conc 35 g/dl (31-36); Mean Corpuscular Hemoglobin 33 pg (27-31); Mean Corpuscular Volume 94 fL (80-97); Mean Platelet Volume 8.4 um3 (7.4-10.4); Nucleated Red Blood Cells % 0.1; Platelet Count 266 10^3/ul (150-450); Red Blood Count 4.56 10^6/ul (4.0-5.4); Red Cell Distribution Width 14 % (10.5-15); White Blood Count 9.6 10^3/ul (3.5-10.8)
[2018-04-28 20:54] LABS: Urine Appearance Clear; Urine Blood Negative (Negative); Urine Color Straw; Urine Ketones Negative (Negative); Urine Protein Negative (Negative); Urine Specific Gravity 1.008 (1.010-1.030); Urine Urobilinogen Negative (Negative)
--- NOTE | 2018-04-28 21:22 | RAD ---
Indication: Weakness. Single frontal view of the chest performed at 2054 hours was reviewed. Comparison is made with previous exam dated March 22, 2016. No mediastinal shift is noted. Heart is of normal size and configuration. Lung brenner appear clear. IMPRESSION: NO ACTIVE CARDIOPULMONARY DISEASE IS NOTED.
--- NOTE | 2018-04-28 21:56 | RAD ---
Indication: Dizziness. CT of the brain was performed without IV contrast. Ventricular structures are midline. No midline shift is noted. The extra-axial spaces are unremarkable. There is no evidence of intracranial mass or hemorrhage. No other high or low density lesions are identified. Mastoid air cells and paranasal sinuses are otherwise unremarkable. IMPRESSION: No intracranial mass or hemorrhage is noted.
--- NOTE | 2018-04-28 22:09 | RAD ---
Indication: Left neck pain. CT of the neck performed without IV contrast. Coronal and sagittal reconstructed images were obtained. Lung apices are grossly unremarkable. Sternoclavicular joint is unremarkable. Small 3 to 5 mm supraclavicular lymph nodes are noted. 3 to 5 mm level 2 lymph nodes noted. Submandibular glands are unremarkable. Small 5 mm submandibular lymph nodes are noted. The parotid gland is unremarkable. No evidence of sialolith is noted. No fracture is identified where visualized of the facial bones. The mandible is intact. IMPRESSION: Unremarkable soft tissues of the neck. Scattered small lymph nodes are present throughout the neck.
--- NOTE | 2018-04-28 23:39 | ED ---
Jose Nam Rebecca, scribed for Danita Juárez MD on 04/28/18 at 2328 . Progress - Progress Note Progress Note: Pt was signed out by Dr. Ruiz, pending dispo, awaiting Brain and Neck CTs. - Results/Orders Results/Orders: Brain CT: Read by radiologist: No intracranial mass or hemorrhage is noted. ED physician reviewed this report. Neck CT: Read by radiologist: Unremarkable soft tissues of the neck. Scattered lymph nodes are present throughout the neck. ED physician reviewed this report. Re-Evaluation - Re-Evaluation First Eval Re-Evaluation Time: 23:28 Change: Improved Comment: Pt is doing well and would like to go home. Course/Dx - Course Course Of Treatment: Pt was signed out by Dr. Ruiz, pending dispo, awaiting Brain and Neck CTs. Brain and Neck CT reveal no acute findings. Upon reevaluation, pt is doing well and would like to be D/C to home. She will be D/ C with Dx of dizziness and anxiety. She understands and agrees. - Diagnoses Provider Diagnoses: Dizziness, Anxiety Discharge - Sign-Out/Discharge Documenting (check all that apply): Discharge/Admit/Transfer - Discharge, Receiving Sign-Out Receiving patient FROM: Anthony Ruiz - Discharge Plan Condition: Stable Disposition: HOME Patient Education Materials: Dizziness (ED), Anxiety (ED) [place] [facility] [place] [place]Outside] - 3 Days Additional Instructions: RETURN TO ED FOR ANY NEW OR WORSENING SYMPTOMS. The documentation as recorded by the Jose purvis Rebecca accurately reflects the service I personally performed and the decisions made by , Danita Juárez MD.
[2018-04-28 23:44] VITALS: BP 146/95
--- NOTE | 2018-04-30 11:49 | ED ---
Sarath Nam Angela, scribed for Anthony Ruiz MD on 04/28/18 at 2004 . Complex/Multi-Sys Presentation - HPI Summary HPI Summary: This pt is a 42 y/o female [facility] c/o dizziness along with whole body numbness and tingling today. She additionally notes left sided neck pain, headache, generalized weakness, fatigue, mild sore throat. Pt states "I am just so exhausted." Pt reports she thought she had low blood sugar due to her symptoms as she is a borderline diabetic. She checked her blood glucose and it was 147 on her machine. Denies chest pain, SOB, jaw pain, nausea, vomiting, diarrhea, constipation, cough. Denies any recent trauma or injury. PMHx includes colitis. - History Of Current Complaint Chief Complaint: EDGeneral Time Seen by Provider: 04/28/18 19:59 Hx Obtained From: Patient Onset/Duration: Sudden Onset, Still Present Timing: Constant Severity Currently: Moderate Location: Pain At: - left side of neck, head Aggravating Factor(s): nothing Alleviating Factor(s): nothing Associated Signs And Symptoms: Positive: Headache. Negative: SOB, Cough, Chest Pain, Vomiting, Diarrhea, Back Pain, Fever - Allergies/Home Medications Allergies/Adverse Reactions: Allergies Allergy/AdvReac Type Severity Reaction Status Date / Time erythromycin base Allergy Rash Verified 04/28/18 18:58 levofloxacin [From Levaquin] Allergy Rash Verified 04/28/18 18:58 moxifloxacin [From Avelox] Allergy Vomiting Verified 04/28/18 18:58 Penicillins Allergy Rash Verified 04/28/18 18:58 Quinolones Allergy Rash Verified 04/28/18 18:58 Home Medications: Home Medications Cyanocobalamin TAB* [Vitamin B12 TAB*] 500 mcg PO DAILY 04/28/18 [History Confirmed 04/28/18] Magnesium Oxide [Magnesium 400 mg] 1 tab PO DAILY 04/28/18 [History Confirmed ] Multivitamins/Minerals TAB* [Theragran/minerals TAB*] 1 tab PO DAILY 04/28/18 [ History Confirmed 04/28/18] Sulfamethox/Trimethoprim DS* [Bactrim DS 800/160 TAB*] 1 tab PO BID 04/28/18 [ History Confirmed 04/28/18] PMH/Surg Hx/FS Hx/Imm Hx Endocrine/Hematology History: Reports: Hx Diabetes - diet controled, Hx Thyroid Disease - removed Denies: Hx Systemic Lupus Erythematosus Cardiovascular History: Denies: Hx Congestive Heart Failure, Hx Hypertension Respiratory History: Denies: Hx Asthma, Hx Chronic Obstructive Pulmonary Disease (COPD) GI History: Reports: Hx Gastroesophageal Reflux Disease Denies: Hx Ulcer History: Denies: Hx Renal Disease Musculoskeletal History: Denies: Hx Rheumatoid Arthritis Sensory History: Denies: Hx Contacts or Glasses, Hx Hearing Aid Opthamlomology History: Denies: Hx Contacts or Glasses - Cancer History Cancer Type, Location and Year: Cervical cancer - Surgical History Surgery Procedure, Year, and Place: Cholecystectomy, LEEP x3, tubal ligation thyroidectomy - Immunization History Date of Tetanus Vaccine: utd Date of Influenza Vaccine: none Infectious Disease History: No Infectious Disease History: Denies: Hx Clostridium Difficile, Hx Hepatitis, Hx Human Immunodeficiency Virus (HIV), Hx of Known/Suspected MRSA, Hx Shingles, Hx Tuberculosis, Hx Known/ Suspected VRE, Hx Known/Suspected VRSA, History Other Infectious Disease, Traveled Outside the [place] in Last 30 Days - Family History Known Family History: Positive: Cardiac Disease, Hypertension - Social History Alcohol Use: Occasionally Substance Use Type: Reports: None Hx Tobacco Use: Yes Smoking Status (MU): Current Some Day Smoker Type: Cigarettes Length of Time of Smoking/Using Tobacco: 15 years on and off Review of Systems Positive: Fatigue. Negative: Fever Positive: Sore Throat Negative: Shortness Of Breath, Cough Negative: Vomiting, Diarrhea, Nausea, Other - constipation Musculoskeletal: Other - left sided neck pain Neurological: Other - POS: dizziness Positive: Headache, Paresthesia, Numbness All Other Systems Reviewed And Are Negative: Yes Physical Exam - Summary Physical Exam Summary: VITAL SIGNS: Reviewed. GENERAL: Patient is a well-developed and nourished female who is lying comfortable in the stretcher. Patient is not in any acute respiratory distress. HEAD AND FACE: No signs of trauma. No ecchymosis, hematomas or skull depressions. No sinus tenderness. EYES: PERRLA, EOMI x 2, No injected conjunctiva, no nystagmus. No photophobia. EARS: Hearing grossly intact. Ear canals and tympanic membranes are within normal limits. MOUTH: Oropharynx within normal limits. NECK: Supple, trachea is midline, no adenopathy, no JVD, no carotid bruit, no c- spine tenderness, neck with full ROM. No meningeal signs, no Kernig's or brudzinskis signs. CHEST: Symmetric, no tenderness at palpation LUNGS: Clear to auscultation bilaterally. No wheezing or crackles. CVS: Regular rate and rhythm, S1 and S2 present, no murmurs or gallops appreciated. ABDOMEN: Soft, non-tender. No signs of distention. No rebound no guarding, and no masses palpated. Bowel sounds are normal. EXTREMITIES: FROM in all major joints, no edema, no cyanosis or clubbing. NEURO: Alert and oriented x 3. No acute neurological deficits. Speech is normal and follows commands. SKIN: Dry and warm GCS: 15 Triage Information Reviewed: Yes Vital Signs On Initial Exam: Initial Vitals Temp Pulse Resp BP Pulse Ox 97.9 F 83 16 156/89 100 04/28/18 18:55 04/28/18 18:55 04/28/18 18:55 04/28/18 18:55 04/28/18 18:55 Vital Signs Reviewed: Yes Diagnostics - Vital Signs Vital Signs Temp Pulse Resp BP Pulse Ox 04/28/18 18:55 97.9 F 83 16 156/89 100 - Laboratory Result Diagrams: 04/28/18 20:26 04/28/18 20:26 Lab Statement: Any lab studies that have been ordered have been reviewed, and results considered in the medical decision making process. - Radiology chest XR Xray Interpretation: No Acute Changes - IMPRESSION: No active cardiopulmonary disease is noted. Dr. Ruiz has reviewed this radiology report. Radiology Interpretation Completed By: Radiologist - EKG 20:06 Cardiac Rate: NL - at 61 bpm EKG Rhythm: Sinus Rhythm EKG Interpretation: No ST elevations. Complex Multi-Symp Course/Dx Assessment/Plan: Pt is a 42 y/o female who presents with dizziness along with whole body numbness and tingling today. She additionally notes left sided neck pain, headache, weakness, fatigue, mild sore throat. Pt reports she thought she had low blood sugar as she is a borderline diabetic and checked her blood sugar. Her blood glucose was 147 on her machine. Denies chest pain, SOB, jaw pain, nausea, vomiting, diarrhea, constipation, cough. Test results without any significant abnormalities. EKG shows no ST elevations. Urinalysis is negative for UTI. Chest XR shows no acute pathology. There is no history of trauma to think the pt has a carotid dissection. Pt has no chest pain to think she has acute coronary syndrome. She is not tachycardic or hypoxic to think the pt would be having ACS or PE. Her symptoms are vague. She complains of weakness but all her blood work is within normal limits. Pt is hemodynamically stable, alert and oriented x3. The pt was hydrated and she feels better, however the pt is waiting for the brain and neck CT since she is complaining of dizziness and left sided neck pain. Pt will be signed out to Dr. Juárez at shift change to follow up on the CT scans. If negative the pt can be discharged home with follow up from PCP. - Diagnoses Provider Diagnoses: Weakness, Fatigue Discharge - Sign-Out/Discharge Documenting (check all that apply): Sign-Out Patient Signing out patient TO: Danita Juárez - pending dispo, awaiting brain and neck CT - Discharge Plan Condition: Stable Referrals: [facility] REFERR[facility] [Outside] The documentation as recorded by the Sarath purvis Angela accurately reflects the service I personally performed and the decisions made by me, Anthony Ruiz MD.
== END 2018-04-28 23:45 | disposition home or self-care (01) ==
LOC: ED 18:49
DX: R53.1 Weakness (principal); R53.83 Other fatigue; R51 Headache; Z72.0 Tobacco use; R42 Dizziness and giddiness; F41.9 Anxiety disorder, unspecified
CPT/HCPCS: 36415; 70450; 70490; 71045; 80053; 81003; 82550; 82553; 83735; 83880; 84443; 84484; 84702; 85025; 85730; 93005; 96360; 99283

== ENCOUNTER 2019-01-04 21:28 | Emergency (ER) | payer OTHER ==
--- OUTSIDE RECORDS SUMMARY | 2019-01-04 21:38 | XMS REPORT | Continuity of Care Document ---
:1975 External Reference #:[id number] Author Name Lakia Scott Care Team Providers Name Role Phone Reynaldo Davenport FNP Care Team Information Field Consultant Unavailable Reynaldo Davenport FNP Primary Care Physician Unavailable Payers Type Date Identification Numbers Payment Provider Subscriber Policy Number: [id number] [employer] Angie Chang PayID: [id number] [address] [place] [address] Advance Directives Description No Information Available Problems Date Description Provider Status Onset: 12/16/2018 Palpitations Gutsavo Wadsworth M.D., [facility] Active Family History Date Family Member(s) Problem(s) Comments Father Heart Attack Mother due to Heart Disease () Social History Type Date Description Comments Sex Unknown Marital Status Single Lives With Children Diet Patient follows no dietary restrictions Occupation Currently Working ADL's/IADL's Independent with all ADL's Tobacco Use Start: Unknown current cigarette smoker Smoking Status Reviewed: 12/16/18 current cigarette smoker ETOH Use Rarely consumes alcohol Recreational Drug Use Marijuana Medical card Allergies, Adverse Reactions, Alerts Date Description Reaction Status Severity Comments 12/16/2018 Penicillin Active 12/16/2018 Levaquin Active Medications Medication Date Status Form Strength Qnty SIG Indications Ordering Provider Magnesium Oxide 12/16/ Active Tablets 400mg 180ta take one Ermelinda 2019 bs tablet by Gustavo M.D., twice a [facility] day Potassium 12/16/ Active Tablets ER 20Meq 90tab 1 by mouth [place] Chloride ER 2019 s every day Gustavo M.D., [facility] Atenolol / Active Tablets 50mg 50 in am , Unknown 0000 25 in pm Levothyroxine 00/00/ Active Tablets 125mcg 1 by mouth Unknown Sodium 0000 every day Metformin HCL / Active Tablets 500mg take one Unknown 0000 tablet by mouth twice a day Xanax / Active Tablets 0.25mg 1-2 tab by Unknown 0000 mouth as needed Ondansetron HCL / Active Tablets 8mg take 1 Unknown 0000 tablet by mouth every 8 hours as needed for nausea Ondansetron HCL / Active Tablets 4mg 1 tab Unknown 0000 every 6hr as needed for nausea Levalbuterol / Active Nebulizer 0.63mg/3ML use 1 vial Unknown HCL 0000 via nebulizer every 6 hours as needed for shortness of breath Qvar Redihaler / Active Aerosol 40mcg/Act inhale one Unknown 0000 puff by mouth twice per day. rinse mouth Magnesium / Active Tablets 400mg 1 by mouth Unknown 0000 every day Norlyda / Active Tablets 0.35mg TK 1 T PO Unknown 0000 qd Immunizations Description No Information Available Vital Signs Date Vital Result Comment 12/16/2018 11:37am BP Systolic Sitting Left Arm 118 mmHg BP Diastolic Sitting Left Arm 68 mmHg Heart Rate 74 /min Respiratory Rate 16 /min Height 66 inches 5'6" Weight 201.00 lb BMI (Body Mass Index) 32.4 kg/m2 BSA (Body Surface Area) 2.00 m2 [facility] body weight in kilograms 59 kg O2 % BldC Oximetry 96 % Results Test Date Facility Test Result H/L Range Note Order 12/17/2018 [facility] <pending> [facility] (607)- - Procedures Date Code Description Status 12/16/2018 63956 EKG-Tracing And Report Completed Encounters Type Date Location Provider Dx Diagnosis Office Visit 12/16/2018 Cardiology Office Gustavo Wadsworth R00.2 Palpitations 11:40a Neisha Luis, [facility] Plan of Treatment Future Appointment(s):06/17/2019 8:20 am - Gustavo Wadsworth M.D., FACC at [facility]iology [id number]/16/2018 - Gustavo Wadsworth M.D., [id number] PalpitationsNew Orders:Echocardiogram, Ordered: 12/16/18Comments:She knows PVCs are not life threatening. She is bothered by them and gets very anxious. I believe that her thyroid dysfunction may be in part responsible for the frequent PVCs. In addition, she tells me that when she has colitis her K and Mg run low. I will try to replace both before I attempt to change the atenolol for a different agent. She will have an echo to make sure there are no structural heart problems.She will call me in a few days to report her symptoms.AllNew Medication:Magnesium Oxide 400 mg - take one tablet by mouth twice a dayPotassium Chloride ER 20 Meq - 1 by mouth every dayFollow up:Follow up visit in 6 months.
--- OUTSIDE RECORDS SUMMARY | 2019-01-04 21:38 | XMS REPORT | Continuity of Care Document ---
:1975 External Reference #:[id number] Author Name Gustavo Wadsworth M.D., [facility] Address [address] [place] [address] Care Team Providers Name Role Phone Reynaldo Davenport FNP Care Team Information Tree Care Foreman Unavailable Reynaldo Davenport FNP Primary Care Physician Unavailable Payers Type Date Identification Numbers Payment Provider Subscriber Policy Number: [id number] [employer] Angie Chang PayID: [id number] [address] [place] [address] Advance Directives Description No Information Available Problems Date Description Provider Status Onset: 12/16/2018 Palpitations Gustavo Wadsworth M.D., [facility] Active Family History Date Family Member(s) [...] bs tablet by Gustavo M.D., twice a [facility] day Potassium 12/16/ Active Tablets ER 20Meq 90tab 1 by mouth Ermelinda Chloride ER 2019 s every day Gustavo M.D., [facility] Atenolol 00/00/ Active Tablets 50mg 50 in am , Unknown 0000 25 in pm Levothyroxine / Active Tablets 125mcg 1 by mouth Unknown [...] kg/m2 BSA (Body Surface Area) 2.00 m2 [place] body weight in kilograms 59 kg O2 % BldC Oximetry 96 % Results Description No Information Available Procedures Date Code Description Status 12/16/2018 58712 EKG-Tracing And Report Completed Encounters Type Date Location Provider Dx Diagnosis Office Visit 12/16/2018 Cardiology Office Gustavo Wadsworth R00.2 Palpitations 11:40a Neisha Luis, [facility] Plan of Treatment Future Appointment(s):06/17/2019 8:20 am - Gustavo Wadsworth M.D., FACC at Cardiology [id number]/16/2018 - Gustavo Wadsworth M.D., [id number] PalpitationsNew Orders:Echocardiogram, [...]
--- OUTSIDE RECORDS SUMMARY | 2019-01-04 21:38 | XMS REPORT | Continuity of Care Document ---
:1975 External Reference #:[id number] Author Name Allie Manrique Care Team Providers Name Role Phone Maya Parra MD Primary Care Physician Unavailable Payers Type Date Identification Numbers Payment Provider Subscriber Policy Number: [id number] Cornelio Gely Edgar Group Number: [id number] [address] PayID: [id number] [place] [address] Effective: 2017 Policy Number: [id number] Medicaid Gely Edgar Expires: 2018 Group Name: 1 1 [address] PayID: [id number] [place] [address] Advance Directives Description No Information Available Problems Date Description Provider Status Onset: 03/27/2018 Hypothyroidism Reynaldo Davenport NP Active Note: first saw gas operator in 2012 through [facility] (methimizole and biopsies large as a ruptured); had Ciara's resection in [place] after palpitations (HR 130s on propranolol) and ups and downs demonstrated surgery was best option; Onset: 03/27/2018 Essential hypertension Reynaldo Davenport NP Active Onset: 03/07/2018 Microscopic colitis Suraj Ann MD Active Note: biopsy as inpatient; see summary 07/21/18 OV; Onset: 07/22/2016 Left lower quadrant pain Suraj Ann MD Active Note: chronic and on 07/22/18 said it was the reason the ER CTs were done Onset: 08/05/2018 Type 2 diabetes mellitus Reynaldo Davenport NP Active Onset: 09/09/2018 Cyst of left ovary Suraj Ann MD Active Note: Dr Sommer has referred her to [place] - pelvic pain specialist' Family History Date Family Member(s) Problem(s) Comments Father [place] Father Hypothyroidism Mother Heart Disease age 65 Mother Cerebrovascular Accident (CVA) Mother Hypothyroidism Mother Hypertension Mother Diabetes Siblings 2 brothers. 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 Smoked 1/2ppd from - Smoking Status Reviewed: 12/10/18 Patient is a former quit 6 months ago smoker (01/2018). Smoked 1/2ppd from - Exercise Type/Frequency Exercises regularly Allergies, Adverse Reactions, Alerts Date Description Reaction Status Severity Comments 03/27/2018 Levaquin hives and swelling Active 03/27/2018 Avelox hives and swelling Active 03/27/2018 Erythromycin hives and swelling Active 03/27/2018 Eggplant hives Active Medications Medication Date Status Form Strength Qnty SIG Indications Ordering Provider Levothyroxine 12/09 Active Tablets 125mcg 30tab take 1/2 Reynaldo s tablet by ADONIS Davenport mouth once daily every morning before breakfast Xanax 10/29 Active Tablets 0.25mg 30tab one by Reynaldo s mouth up to ADONIS Davenport two times daily as needed for anxiety Ondansetron HCL 10/29 Active Tablets 4mg 30tab one tablet R11.0 Suraj Contreras. s every 8 Seth, hours as MD needed for nausea. Cholestyramine 07/22 Active Packet 4gm 60uni take one Suraj Cassidy ts packet a Seth, day in MD fluid of choice Atenolol 03/27 Active Tablets 50mg 45tab 1 by mouth Reynaldo s every in ADONIS Davenport the morning and 1/2 tablet in at night Metformin HCL 03/27 Active Tablets 500mg 60tab 1 by mouth Reynaldo s once a day ADONIS Davenport Levalbuterol HCL Active Nebulizer 0.63mg/3M use 3-4x Unknown /0000 L daily as needed for shortness of breath Qvar 00 Active Aerosol 40mcg/Act 2 puff Unknown /0000 twice a day as needed Qvar Redihaler 00/00 Active Aerosol 80mcg/Act 1 puff twice daily as needed Xyzal Active Tablets 5mg 1 by mouth Unknown every day Zyrtec Allergy Active Capsules 10mg take one tablet by mouth twice a day Levothyroxine 11/11 Hx Tablets 100mcg 30tab 1 by mouth Reynaldo s every day ADONIS Davenport - 12/09 Ondansetron 10/29 Hx Tablets 4mg 30tab dissolve R11.0 Reynaldo Dispers s one tablet Ethel, ADONIS - orally 10/29 every hours as needed for nausea. Metronidazole 10/06 Hx Gel 0.75% 45gm one N76.0 Dvora applicator Kemal, - per vagina 12/09 daily x days Terconazole 10/06 Hx Cream 0.4% 45gm one N76.0 Dvora applicator [place], - per vagina 12/07 every night at bedtime x 7 nights Norethindrone 08/25 Hx Tablets 0.35mg 28tab 1 by mouth N83.202 Dvorah s every day Jovanni Sommer MD 12/09 Reglan 08/18 Hx Tablets 10mg Reynaldo /2017 ADONIS Davenport - 08/18 Prochlorperazine 08/18 Hx Tablets 5mg 30tab 1-2 tabs R10.9 Reynaldo Maleate s every 8 Ethel, AVIATION OPERATIONS SPECIALIST - hours as 10/29 needed for nausea. Tramadol HCL 08/18 Hx Tablets 50mg 20tab 1-2 tablets R10.9 Reynaldo /2017 s every 12 Ethel, AVIATION OPERATIONS SPECIALIST - hours as 12/08 needed for pain. Triamcinolone 04/21 Hx Lotion 0.1% 60uni apply to R2 Jennifer Acetonide ts dry skin Varn, - once or N.P. 05/05 twice daily Medrol 04/21 Hx TBPK 4mg 21uni 6 by mouth R2 ts day 1, 5 by Varn, - mouth day N.P. 04/27 2, 4 by mouth day 3, 3 by mouth day 4, 2 by mouth day 5, 1 by mouth day 6 Levothyroxine 03/27 Hx Tablets 150mcg 30tab 1 by mouth Reynaldo s every day ADONIS Davenport - 11/11 Zofrluanne Odt 00 Hx Tablets 4mg 1 tab by Unknown /0000 Dispers mouth every - 6 hours as 08/18 nausea Immunizations Description No Information Available Vital Signs Date Vital Result Comment 12/10/2018 11:01am Height 66 inches 5'6" Weight 197.38 lb Heart Rate 57 /min BP Systolic 128 mmHg BP Diastolic 84 mmHg Respiratory Rate 18 /min O2 % BldC Oximetry 96 % BMI (Body Mass Index) 31.9 kg/m2 11/03/2018 3:09pm Height 66 inches 5'6" Weight 201.00 lb Heart Rate 77 /min BP Systolic 118 mmHg BP Diastolic 81 mmHg O2 % BldC Oximetry 97 % BMI (Body Mass Index) 32.4 kg/m2 10/29/2018 4:25pm Height 66 inches 5'6" Weight 199.00 lb Heart Rate 75 /min BP Systolic 130 mmHg BP Diastolic 82 mmHg O2 % BldC Oximetry 98 % BMI (Body Mass Index) 32.1 kg/m2 10/06/2018 8:12am Height 66 inches 5'6" Weight 197.00 lb Heart Rate 64 /min BP Systolic 131 mmHg BP Diastolic 82 mmHg O2 % BldC Oximetry 98 % BMI (Body Mass Index) 31.8 kg/m2 08/25/2018 1:44pm Height 66 inches 5'6" Weight 205.00 lb Heart Rate 74 /min BP Systolic 123 mmHg BP Diastolic 82 mmHg O2 % BldC Oximetry 97 % BMI (Body Mass Index) 33.1 kg/m2 08/18/2018 10:29am Height 66 inches 5'6" Weight 206.00 lb Heart Rate 68 /min BP Systolic 131 mmHg BP Diastolic 80 mmHg Body Temperature 98.3 F O2 % BldC Oximetry 98 % BMI (Body Mass Index) 33.2 kg/m2 07/28/2018 1:30pm Height 66 inches 5'6" Weight 214.50 lb Heart Rate 71 /min BP Systolic Sitting 116 mmHg BP Diastolic Sitting 78 mmHg O2 % BldC Oximetry 96 % BMI (Body Mass Index) 34.6 kg/m2 Last Menstrual Period [id number] 07/24/2018 3:25pm Height 66 inches 5'6" Weight 215.00 lb with shoes Heart Rate 69 /min BP Systolic 126 mmHg BP Diastolic 76 mmHg Body Temperature 98.2 F O2 % BldC Oximetry 97 % BMI (Body Mass Index) 34.7 kg/m2 07/22/2018 10:46am Height 66 inches 5'6" Weight 212.00 lb Heart Rate 67 /min BP Systolic 129 mmHg BP Diastolic 86 mmHg Respiratory Rate 18 /min Body Temperature 97.1 F reports this morning temperature was 101.0 Pain Level 7 not taking anyting for pain O2 % BldC Oximetry 97 % BMI (Body Mass Index) 34.2 kg/m2 04/21/2018 11:28am Height 65 inches 5'5" Weight 220.50 lb Heart Rate 69 /min BP Systolic 127 mmHg BP Diastolic 79 mmHg O2 % BldC Oximetry 97 % BMI (Body Mass Index) 36.7 kg/m2 03/27/2018 11:05am Height 65 inches 5'5" Weight 217.50 lb Heart Rate 75 /min BP Systolic 132 mmHg BP Diastolic 78 mmHg Body Temperature 96.9 F O2 % BldC Oximetry 97 % BMI (Body Mass Index) 36.2 kg/m2 Results Test Date Facility Test Result H/L Range Note Laboratory test 12/09/2018 [facility] Hemoglobin A1c 6.7 % High 4.0-5.6 1 finding 101 (Glyco HGB) [place] [address] [phone] Lipid Profile 12/09/2018 [facility] Triglycerides 154 mg/dL 2 (Trig/Chol/HDL) [address] [place] [address] [phone] Cholesterol 213 mg/dL 3 HDL Cholesterol 51.6 mg/dL 4 LDL Cholesterol 131 mg/dL 5 Urine Microalbumin 12/09/2018 [facility] Ur Microalbumin < 15.[address] (mg/L) [place] [address] [phone] Urine Creatinine 238.41 mg/dL Urine Microalbumin/Creatinine TNP <31 6 Laboratory test 12/09/2018 [facility] TSH (Thyroid 10.54 High 0.34-5.[address] Stim Horm) mcIU/[place] [address] [phone] Magnesium 2.0 mg/dL N 1.9-2.7 Laboratory test 11/03/2018 [facility] Surgical SEE RESULT [address] [place] [address] [phone] Laboratory test 10/06/2018 [facility] Gardnerella/Yeas SEE RESULT [address] t: [place] [address] [phone] Xray 09/28/2018 [facility] US Transvaginal <pending> [address] [place] [address] [phone] GC/Chlamydia 08/25/2018 [facility] Chlamydia Negative Negative Amplified Rna [address] [address] [phone] Neisseria gonorrhoeae (GC) Rna Negative Negative Laboratory test 08/25/2018 [facility] Trichomonas Negative Negative [address] [place] [address] [phone] Laboratory test 08/25/2018 [facility] Gardnerella/Yea SEE RESULT [address]: [place] [address] [phone] GC/Chlamydia 07/24/2018 [facility] Chlamydia Negative Negative Amplified Rna [address] [place] [address] [phone] Neisseria gonorrhoeae (GC) Rna Negative Negative 1 Therapeutic target for the treatment of diabetes mellitus patients is <7% HBA1C, and in selective patients <6.0%. Please refer to [place] [employer] diabetic care guidelines for further information. 2 Desirable: <150 Borderline High: 150-199 High: 200-499 Very High: >500 3 Desirable: <200 Borderline High: 200-239 High: >239 4 Low: <40 Desirable: 40-60 High: >60 5 Desirable: <100 Near Optimal: 100-129 Borderline High: 130-159 High: 160-189 Very High: >189 6 Unable to calculate due to low microalbumin 7 SEE RESULT BELOW Name: GELY EDGAR : [address]: Alyson Sommer MD Acct: [id number] Unit: [id number] AGE: 43 Location: [facility] Re11/03/18 SEX: F Status: REG REF SPEC: [id number] FERMIN: 11/03/18-[address]: Alyson Sommer MD REQ: [id number] RECD: 11/03/18 STATUS: SOUT _ ORDERED: LEVEL 4 COMMENTS: [id number] FINAL DIAGNOSIS Uterus, endometrium, biopsy: -- Late secretory endometrium. -- No evidence of hyperplasia or malignancy. PRE-OPERATIVE DIAGNOSIS Heavy menses GROSS DESCRIPTION The specimen is received in formalin with no source identified and a requisition labeled, Endometrial Biopsy, and consists of a 2.6 x 2.0 x 0.5 cm aggregate of muñoz- pink irregular to cylindrical soft tissue fragments admixed with red-brown blood clot. Entirely submitted, one cassette. Signed by and Reported on: Rosi Rodriguez MD 11/05/18 1048 END OF REPORT DEPARTMENT OF PATHOLOGY, [address] [place] [address] Gomez Brown M.D. Director [facility] # [id number] 8 SEE RESULT BELOW Name: GELY EDGAR : [address]: Alyson Sommer MD Acct: [id number] Unit: [id number] AGE: 43 Location: [facility] Re10/06/18 SEX: F Status: REG REF SPEC: [id number] FERMIN: 10/06/[address] [facility] [address]: Alyson Sommer MD REQ: [id number] RECD: 10/06/18 STATUS: COMP _ SOURCE: VAGINAL SPDESC: ORDERED: Suresh,Yeast DNA, Trich DNA COMMENTS: [id number] Would you like to order Trichomonas Vaginalis testing? Yes Procedure Result Reported Site Gardnerella/Yeast: Vaginal DNA Final 10/07/18- 1408 ML Organism 1 Negative Harika Organism 2 Negative Gardnerella The presence of G. vaginalis, although suggestive, is not diagnostic for bacterial vaginosis. Results should be interpreted in conjuction with other clinical and laboratory data available. Women with vaginal discharge should be evaluated for risk factors of cervicitis and pelvic inflammatory disease, toxic shock syndrome (S.aureus), and if present, evaluated for organisms not included in this assay such as N. gonorrhoeae, C. trachomatis, Mobiluncus, Mycoplasma and/or Prevotella. Mixed infections may occur. The performance of this test on patient specimens collected during or immediately after antimicrobial therapy is unknown. The presence or absence of Harika species, or G. vaginalis cannot be used as a test for therapeutic success or failure. Trichomonas: Vaginal DNA Probe Final 10/07/18- 1408 ML Organism 1 Negative Trichomonas CONTINUED ON NEXT PAGE DEPARTMENT OF PATHOLOGY, [address] [place] [address] Gomez Brown M.D. Director [facility] # [id number] Patient: GELY EDGAR [id number] (Continued) Specimen: [id number] Collected: 10/06/18 Received: 10/06/18 (Continued) Procedure Result Reported Site Trichomonas: Vaginal DNA Probe Final (continued) 10/07/18- 1402 The presence or absence of T. vaginalis cannot be used as a test for therapeutic success or failure. * ML - Main Lab . END OF REPORT DEPARTMENT OF PATHOLOGY, [address] [place] [address] Gomez Brown M.D. Director [facility] # [id number] GC/Chlamydia Source?: Endocervical Trichomonas Source: Endocervical 10 SEE RESULT BELOW Name: GELY EDGAR [place] : [address]: Alyson Sommer MD Acct: [id number] Unit: [id number] AGE: 42 Location: [facility] Re08/25/18 SEX: F Status: REG REF SPEC: [id number] FERMIN: 08/25/[address] [facility] [address]: Alyson Sommer MD REQ: [id number] RECD: 08/25/18 STATUS: COMP _ SOURCE: VAGINAL SPDESC: ORDERED: Suresh,Yeast DNA COMMENTS: [id number] Would you like to order Trichomonas Vaginalis testing? Y Procedure Result Reported Site Gardnerella/Yeast: Vaginal DNA Final 08/26/18- 1227 ML Organism 1 Negative Harika Organism 2 Negative Gardnerella The presence of G. vaginalis, although suggestive, is not diagnostic for bacterial vaginosis. Results should be interpreted in conjuction with other clinical and laboratory data available. Women with vaginal discharge should be evaluated for risk factors of cervicitis and pelvic inflammatory disease, toxic shock syndrome (S.aureus), and if present, evaluated for organisms not included in this assay such as N. gonorrhoeae, C. trachomatis, Mobiluncus, Mycoplasma and/or Prevotella. Mixed infections may occur. The performance of this test on patient specimens collected during or immediately after antimicrobial therapy is unknown. The presence or absence of Harika species, or G. vaginalis cannot be used as a test for therapeutic success or failure. * ML - Main Lab . END OF REPORT DEPARTMENT OF PATHOLOGY, [address] [place] [address] Gomez Brown M.D. Director [facility] # [id number] Procedures Date Code Description Status 11/03/2018 73209 Endometrial Sampling W Or W/O Endocervical BX W Or W/O Completed Cerv Dilat 03/10/2018 38522719 Colonoscopy Completed 11/13/2016 [id number] Mammogram Completed Encounters Type Date Location Provider Dx Diagnosis Office Visit 10/29/2018 [facility] Reynaldo Davenport NP F41.9 Anxiety disorder , 4:20p Medicine - unspecified [place] R11.0 Nausea E03.9 Hypothyroidism, unspecified I10 Essential (primary) hypertension Office Visit 10/06/2018 8:00a [facility], N92.0 Excessive and [facility] frequent at [place] menstruation with regular cycle N76.0 Acute vaginitis L72.3 Sebaceous cyst Office Visit 08/25/2018 2:00p [facility] [place], N83.202 Unspecified [facility] ovarian cyst, left at [place] side R10.32 Left lower quadrant pain Office Visit 08/18/2018 10:20a [facility] Internal Reynaldo Davenport NP R10.9 Unspecified Medicine - abdominal pain [place] Office Visit 07/28/2018 1:30p [facility] [place], N83.202 Unspecified [facility] ovarian cyst, at [place] left side Office Visit 07/24/2018 3:20p [facility] Internal Maya N83.202 Unspecified Medicine - Neihsa Parra ovarian cyst, [place] left side R10.2 Pelvic and perineal pain Office Visit 07/22/2018 [facility] Gastroenterology Suraj Cassidy K52.839 Microscopic 10:30a MD Seth colitis, unspecified K58.0 Irritable bowel syndrome with diarrhea E73.9 Lactose intolerance, unspecified E66.09 Other obesity due to excess calories R73.03 Prediabetes Office Visit 04/21/2018 11:40a [facility] Internal Jennifer Davila, R21 Rash and other Medicine - N.P. nonspecific skin [place] eruption Office Visit 03/27/2018 11:00a [facility] Internal Reynaldo Davenport NP E03.9 Hypothyroidism, Medicine - unspecified [place] I10 Essential (primary) hypertension R10.9 Unspecified abdominal pain Office Visit 03/10/2018 12:52p [facility] Juana Kohli, R10.12 Left upper Assoc,gerard Driver quadrant pain Hospitalists R19.7 Diarrhea, unspecified Office Visit 03/09/2018 12:51p [facility] Cristina R10.12 Left upper Assoc,gerard Edwards M.D. quadrant pain Hospitalists R19.7 Diarrhea, unspecified Office Visit 11/03/2014 6:05p [facility] Raffy Mcgill, 786.50 Pain Chest Assoc,gerard Driver Unspec Hospitalists Plan of Treatment Future Appointment(s):04/30/2019 4:20 pm - Reynaldo Davenport NP at [facility] Internal Medicine [facility]
[2019-01-04 21:44] VITALS: BP 145/89
--- NOTE | 2019-01-04 21:51 | ED ---
Abdominal Pain/Female - HPI Summary HPI Summary: 43 yr old female with the complaint of left upper quad abd pain, lower chest left sided pain after bending over and feeling a pop in her side. pain is 7/10 constant and worse with moving. No SOB and no pain with breathing. She is not on blood thinners. - History of Current Complaint Chief Complaint: UCUpperExtremity Stated Complaint: LEFT SIDE RIB PAIN,NAUSEA Time Seen by Provider: 01/04/19 21:40 Hx Last Menstrual Period: 10/11/18 Pain Intensity: 7 Allergies/Adverse Reactions: Allergies Allergy/AdvReac Type Severity Reaction Status Date / Time erythromycin base Allergy Rash Verified 01/04/19 21:44 levofloxacin [From Levaquin] Allergy Rash Verified 01/04/19 21:44 moxifloxacin [From Avelox] Allergy Vomiting Verified 01/04/19 21:44 Penicillins Allergy Rash Verified 01/04/19 21:44 Quinolones Allergy Rash Verified 01/04/19 21:44 PMH/Surg Hx/FS Hx/Imm Hx Endocrine/Hematology History: Reports: Hx Diabetes - diet controled, Hx Thyroid Disease - removed Denies: Hx Systemic Lupus Erythematosus Cardiovascular History: Denies: Hx Congestive Heart Failure, Hx Hypertension Respiratory History: Denies: Hx Asthma, Hx Chronic Obstructive Pulmonary Disease (COPD) GI History: Reports: Hx Gastroesophageal Reflux Disease Denies: Hx Ulcer History: Denies: Hx Renal Disease Musculoskeletal History: Denies: Hx Rheumatoid Arthritis Sensory History: Denies: Hx Contacts or Glasses, Hx Hearing Aid Opthamlomology History: Denies: Hx Contacts or Glasses - Cancer History Cancer Type, Location and Year: Cervical cancer - Surgical History Surgery Procedure, Year, and Place: Cholecystectomy, LEEP x3, tubal ligation thyroidectomy - Immunization History Date of Tetanus Vaccine: utd Date of Influenza Vaccine: none Infectious Disease History: No Infectious Disease History: Denies: Hx Clostridium Difficile, Hx Hepatitis, Hx Human Immunodeficiency Virus (HIV), Hx of Known/Suspected MRSA, Hx Shingles, Hx Tuberculosis, Hx Known/ Suspected VRE, Hx Known/Suspected VRSA, History Other Infectious Disease, Traveled Outside the [place] in Last 30 Days - Family History Known Family History: Positive: Unknown, Cardiac Disease, Hypertension - Social History Occupation: Employed Full-time Alcohol Use: Occasionally Substance Use Type: Reports: None Hx Tobacco Use: Yes Smoking Status (MU): Current Some Day Smoker Type: Cigarettes Length of Time of Smoking/Using Tobacco: 15 years on and off Review of Systems Constitutional: Negative Negative: Shortness Of Breath, Cough Positive: Other - lUQ pain All Other Systems Reviewed And Are Negative: Yes Physical Exam Triage Information Reviewed: Yes Vital Signs On Initial Exam: Initial Vitals Temp Pulse Resp BP Pulse Ox 97.1 F 77 18 145/89 100 01/04/19 21:39 01/04/19 21:39 01/04/19 21:39 01/04/19 21:39 01/04/19 21:39 Vital Signs Reviewed: Yes Appearance: Positive: Well-Appearing, No Pain Distress Skin: Positive: Warm, Skin Color Reflects Adequate Perfusion Head/Face: Positive: Normal Head/Face Inspection Eyes: Positive: EOMI ENT: Positive: Normal ENT inspection Neck: Positive: Nontender Respiratory/Lung Sounds: Positive: Clear to Auscultation, Breath Sounds Present Cardiovascular: Positive: RRR. Negative: Murmur Abdomen Description: Positive: Other: - tender left upper quadrant of abdomen Musculoskeletal: Positive: Strength/ROM Intact Neurological: Positive: Sensory/Motor Intact, Alert, Oriented to Person Place, Time, CN Intact II-III Psychiatric: Positive: Normal Diagnostics - Vital Signs Vital Signs Temp Pulse Resp BP Pulse Ox 01/04/19 21:39 97.1 F 77 18 145/89 100 - Laboratory Lab Statement: Any lab studies that have been ordered have been reviewed, and results considered in the medical decision making process. Abdominal Pain Fem Course/Dx - Course Course Of Treatment: 43 yr old with left upper quadrant pain sudden in onset after bending over and feeling a pop. SHe is tender in Left upper quadrant. 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 - Diagnoses Provider Diagnoses: Left upper quadrant abdominal pain of unknown etiology, Hypertension Discharge - Sign-Out/Discharge Documenting (check all that apply): Patient Departure All imaging exams completed and their final reports reviewed: No Studies - Discharge Plan Condition: Good Disposition: AGAINST MEDICAL ADVICE Patient Education Materials: Acute Abdominal Pain (ED), Hypertension (ED) Referrals: Reynaldo Davenport, [employer] [Primary Care Provider] - Additional Instructions: you need to go to the ER immediately after leaving here to be sure you do not have a spleen injury. You have declined an ambulance for transport. - Billing Disposition and Condition Condition: GOOD Disposition: Against Medical Advice
== END 2019-01-04 21:54 | disposition left against medical advice (07) ==
LOC: UCCORT 21:28
DX: R10.12 Left upper quadrant pain (principal); I10 Essential (primary) hypertension; R07.81 Pleurodynia; R11.0 Nausea; F17.210 Nicotine dependence, cigarettes, uncomplicated; Z88.1 Allergy status to other antibiotic agents; Z88.0 Allergy status to penicillin
CPT/HCPCS: 99212; G0463

== ENCOUNTER 2019-01-22 17:08 | Emergency (ER) | payer OTHER ==
--- OUTSIDE RECORDS SUMMARY | 2019-01-22 17:17 | XMS REPORT | Continuity of Care Document ---
:1975 External Reference #:[id number] Author Name Malone Gomez Care Team Providers Name Role Phone Jennifer Davila RN FNP Care Team Information Restrictive Preparation Operator Unavailable Jennifer Davila RN FNP Primary Care Physician Unavailable Payers Date Identification Numbers Payment Provider Subscriber Effective: 2018 Policy Number: [id number] [facility] Angie Chang Group Number: [id number] [id number] Group Name: [place] [address] PayID: [id number] Advance Directives Description No Information Available Problems Date Description Provider Status Onset: 04/22/2018 Unspecified viral infection Tony Thakkar M.D. Active characterized by skin and mucous membrane lesions Onset: 04/22/2018 Atopic dermatitis Tony Thakkar M.D. Active Onset: 04/22/2018 Allergic rhinitis Tony Thakkar M.D. 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 ETOH Use Occasionally consumes alcohol Tobacco Use Start: Unknown Patient has never smoked Recreational Drug Use Denies Drug Use Smoking Status Reviewed: 04/22/18 Patient has never smoked Allergies, Adverse Reactions, Alerts Date Description Reaction Status Severity Comments 04/22/2018 Moxifloxacin Urticaria Active nausea and vomiting 04/22/2018 Arythromycin Urticaria Active 04/22/2018 Levaquin Urticaria Active nausea and vomiting 04/22/2018 Penicillin Active Childhood reaction Medications Medication Date Status Form Strength Qnty SIG Indications Ordering Provider Arnuity Ellipta 01/21 Active Aerosol 100mcg/Ac 30uni 1 t ts inhalation Jaylan, once a day [employer]ENZ[employer] MACHINE OPERATOR-C Flonase 01/21 Active Suspension 27.5mcg/S 17.7m 2 sprays Cynthia Sensimist pray l both Jaylan, nostrils [employer]OBENZ[employer] MACHINE OPERATOR-C once daily Azelastine HCL 01/21 Active Solution 0.15% 30ml 1 spray Cynthia (Nasal) each Jaylan, nostril [employer] MACHINE OPERATOR-C twice daily as needed for nasal congestion/ stuffiness Montelukast 09/09 Active Tablets 10mg 90tab 1 by mouth J01.00 Carey s every day Uldrich, [employer]OBENZ[employer] MACHINE OPERATOR-C Azelastine HCL 17 Active Solution 0.15% 30ml one spray J01.00 Carey (Nasal) each Uldrich, nostril in [employer] MACHINE OPERATOR-C the morning and at night Epipen 2-Edmundo 07/21 Active Solution 0.3mg/0.3 4unit use as Carey Auto-Inject ML s directed Uldrich, [employer] MACHINE OPERATOR-C Zofran 07/15 Active Tablets 4mg 14tab take 1 as Z23 Carey s needed for Uldrich, colitis [employer]OB[employer] MACHINE OPERATOR-C every 8 hours Triamcinolone 06/30 Active Cream 0.1% 80gm apply to Z23 Carey Acetonide arms and Uldrich, legs twice [employer] MACHINE OPERATOR-C a day not the face Levalbuterol 05/20 Active Aerosol 45mcg/Act 15gm 2 puffs Carey Tartrate /2017 every 4 Uldrich, hours as [employer] MACHINE OPERATOR-C needed for cough, wheezing, shortness of breath and chest tightness Benadryl Allergy Active Capsules 25mg 1 by mouth Unknown /0000 at bedtime as needed for itchy skin/rash. Flonase Allergy Active Suspension 50mcg/Act 1 spray Unknown Relief /0000 each nostril everyday Atenolol Active Tablets 75mg 50mg in Unknown /0000 morning 25mg at night Magnesium-Oxide Active Tablets 400(241.3 Unknown /0000 Mg) mg Potassium Active Tablets ER 20Meq TK 1 T PO Unknown Chloride Sharonda ER /0000 qd Levothyroxine Active Tablets 125mcg TK 1/2 T PO Unknown Sodium /0000 qam B Trini Qvar 07/21 Hx Aerosol 80mcg/Act 8.7un 2 puff Carey /2017 its twice a day Uldrich, - [employer]HL[employer]OBENZENE MACHINE OPERATOR-C 01/21 Levocetirizine 04/22 Hx Tablets 5mg 30tab take one at J30.89 [place] Dihydrochloride s bedtime VIKAS Delgado - every night A-C 01/21 Medications Administered in Office Medication Date Status Form Strength Qnty SIG Indications Ordering Provider Injection 07/08/20 Administered Injection Allergy 18 Injection Injection 06/23/20 Administered Injection Allergy 18 Injection Injection 06/18/20 Administered Injection Allergy 18 Injection Injection 06/03/20 Administered Injection Allergy 18 Injection Injection 05/28/20 Administered Injection Allergy 18 Injection Injection 05/20/20 Administered Injection Allergy 18 Injection Injection 05/13/20 Administered Injection Allergy 18 Injection Immunizations Description No Information Available Vital Signs Date Vital Result Comment 01/21/2019 3:28pm Height 66 inches 5'6" Weight 196.00 lb Weight 88.906 kg Respiratory Rate 18 /min Heart Rate 68 /min O2 % BldC Oximetry 97 % BP Systolic 133 mmHg BP Diastolic 79 mmHg Asthma Control Test 16 Fractional Exhaled Nitric Oxide 12 BMI (Body Mass Index) 31.6 kg/m2 11/18/2018 8:43am Height 66 inches 5'6" Weight 199.00 lb Weight 90.266 kg Respiratory Rate 18 /min Heart Rate 67 /min Body Temperature 98.0 F O2 % BldC Oximetry 97 % BP Systolic 124 mmHg BP Diastolic 75 mmHg BMI (Body Mass Index) 32.1 kg/m2 09/30/2018 9:37am Height 66 inches 5'6" Weight 203.00 lb Weight 92.081 kg Respiratory Rate 16 /min Heart Rate 64 /min O2 % BldC Oximetry 98 % BP Systolic 135 mmHg BP Diastolic 69 mmHg Asthma Control Test 22 BMI (Body Mass Index) 32.8 kg/m2 09/09/2018 9:24am Height 66 inches 5'6" Weight 201.00 lb Weight 91.174 kg Respiratory Rate 16 /min Heart Rate 70 /min O2 % BldC Oximetry 94 % BP Systolic 137 mmHg BP Diastolic 82 mmHg BMI (Body Mass Index) 32.4 kg/m2 09/01/2018 3:03pm Height 66 inches 5'6" Weight 204.00 lb Weight 92.534 kg Respiratory Rate 16 /min Heart Rate 77 /min Body Temperature 97.8 F O2 % BldC Oximetry 95 % BP Systolic 127 mmHg BP Diastolic 75 mmHg Asthma Control Test 21 BMI (Body Mass Index) 32.9 kg/m2 07/21/2018 8:38am Height 66 inches 5'6" Weight 214.00 lb Weight 97.070 kg Respiratory Rate 18 /min Heart Rate 76 /min O2 % BldC Oximetry 97 % BP Systolic 124 mmHg BP Diastolic 72 mmHg Asthma Control Test 22 BMI (Body Mass Index) 34.5 kg/m2 07/15/2018 9:33am Height 66 inches 5'6" Weight 213.00 lb Weight 96.617 kg Respiratory Rate 16 /min Heart Rate 66 /min Body Temperature 97.8 F O2 % BldC Oximetry 97 % BP Systolic 140 mmHg on bp meds BP Diastolic 80 mmHg on bp meds BMI (Body Mass Index) 34.4 kg/m2 06/30/2018 11:45am Height 66 inches 5'6" Weight 215.00 lb Weight 97.524 kg Respiratory Rate 18 /min Heart Rate 72 /min O2 % BldC Oximetry 97 % BP Systolic 133 mmHg BP Diastolic 76 mmHg Asthma Control Test 24 BMI (Body Mass Index) 34.7 kg/m2 05/20/2018 9:48am Height 66 inches 5'6" Weight 214.00 lb Weight 97.070 kg Respiratory Rate 18 /min Heart Rate 70 /min O2 % BldC Oximetry 98 % BP Systolic 127 mmHg BP Diastolic 76 mmHg BMI (Body Mass Index) 34.5 kg/m2 05/06/2018 10:03am Height 66 inches 5'6" Weight 216.00 lb Weight 97.978 kg Respiratory Rate 18 /min Heart Rate 68 /min O2 % BldC Oximetry 98 % BP Systolic 127 mmHg BP Diastolic 76 mmHg BMI (Body Mass Index) 34.9 kg/m2 04/22/2018 9:09am Height 66 inches 5'6" Weight 216.00 lb Weight 97.978 kg Respiratory Rate 18 /min Heart Rate 66 /min O2 % BldC Oximetry 96 % BP Systolic 126 mmHg BP Diastolic 78 mmHg BMI (Body Mass Index) 34.9 kg/m2 Results Description No Information Available Procedures Date Code Description Status 01/21/2019 99557 Nitric Oxide Gas Determination Completed 01/21/2019 24541 Pre PFT Completed 09/30/2018 72976 Pre PFT Completed 07/08/2018 56883 Injection Completed 06/23/2018 24328 Injection Completed 06/18/2018 37997 Injection Completed 06/03/2018 31615 Injection Completed 05/28/2018 50776 Injection Completed 05/20/2018 37993 Injection Completed 05/20/2018 95221 Pulmonary Function Test Completed 05/13/2018 22459 Injection Completed 05/06/2018 50937 Extract 1-10 Completed 04/22/2018 56118 Skin Test Scratch # Of Units ____ Completed Encounters Type Date Location Provider Dx Diagnosis Office Visit 01/21/2019 [facility] Shanell Light Encounter for 3:40p [employer] MACHINE OPERATOR-[employer] immunization J30.81 Allergic rhinitis due to animal (cat) (dog) hair and dander J30.1 Allergic rhinitis due to pollen R05 Cough J45.30 Mild persistent asthma, uncomplicated Office Visit 11/18/2018 8:40a [facility] Carey Reece Encounter for Emma, [employer]OBENZ[employer] MACHINE OPERATOR-C immunization J01.00 Acute maxillary sinusitis, unspecified J30.81 Allergic rhinitis due to animal (cat) (dog) hair and dander J30.1 Allergic rhinitis due to pollen J30.2 Other seasonal allergic rhinitis J30.89 Other allergic rhinitis Office Visit 09/30/2018 9:40a [facility] Carey Uldrich, J30.81 Allergic [employer]OBENZ[employer] MACHINE OPERATOR-C rhinitis due to animal (cat) (dog) hair and dander J30.1 Allergic rhinitis due to pollen R05 Cough J30.2 Other seasonal allergic rhinitis J30.89 Other allergic rhinitis Office Visit 09/09/2018 9:20a [facility] Carey J01.00 Acute maxillary Uldrich, [employer]ENZ[employer] MACHINE OPERATOR-C sinusitis, unspecified J30.81 Allergic rhinitis due to animal (cat) (dog) hair and dander J30.1 Allergic rhinitis due to pollen J30.2 Other seasonal allergic rhinitis J30.89 Other allergic rhinitis Office Visit 09/01/2018 3:00p [facility] Carey Z23 Encounter for Uldrich, [employer]ENZ[employer] MACHINE OPERATOR-C immunization J01.00 Acute maxillary sinusitis, unspecified J30.81 Allergic rhinitis due to animal (cat) (dog) hair and dander J30.1 Allergic rhinitis due to pollen J30.2 Other seasonal allergic rhinitis J30.89 Other allergic rhinitis Office Visit 07/21/2018 8:40a [facility] Carey Z23 Encounter for Uldrich, [employer]ENZ[employer] MACHINE OPERATOR-C immunization J30.1 Allergic rhinitis due to pollen J30.2 Other seasonal allergic rhinitis J30.81 Allergic rhinitis due to animal (cat) (dog) hair and dander J30.89 Other allergic rhinitis Office Visit 07/15/2018 9:40a [facility] Carey Z23 Encounter for Uldrich, [employer]OBENZENE MACHINE OPERATOR-C immunization J30.1 Allergic rhinitis due to pollen J30.2 Other seasonal allergic rhinitis J30.81 Allergic rhinitis due to animal (cat) (dog) hair and dander J30.89 Other allergic rhinitis L20.9 Atopic dermatitis, unspecified Office Visit 06/30/2018 11:40a [facility] Carey Z23 Encounter for Uldrich, [employer] MACHINE OPERATOR-C immunization J30.1 Allergic rhinitis due to pollen J30.2 Other seasonal allergic rhinitis J30.81 Allergic rhinitis due to animal (cat) (dog) hair and dander J30.89 Other allergic rhinitis L20.9 Atopic dermatitis, unspecified Office Visit 05/20/2018 9:40a [facility] Carey Uldrich, J30.1 Allergic [employer] MACHINE OPERATOR-C rhinitis due to pollen J30.2 Other seasonal allergic rhinitis J30.81 Allergic rhinitis due to animal (cat) (dog) hair and dander J30.89 Other allergic rhinitis Office Visit 05/06/2018 10:00a [facility] Carey L20.9 Atopic dermatitis, Emma, [employer]ENZ[employer] MACHINE OPERATOR-C unspecified J30.1 Allergic rhinitis due to pollen J30.2 Other seasonal allergic rhinitis J30.81 Allergic rhinitis due to animal (cat) (dog) hair and dander Office Visit 04/22/2018 9:00a [facility] Tony Garcia J30.89 Other allergic Neisha Thakkar rhinitis L20.9 Atopic dermatitis, unspecified B09 Unsp viral infection with skin and mucous membrane lesions Plan of Treatment Future Appointment(s):04/22/2019 4:00 pm - [facility]11/18/2018 - CAROLYNN ReidCZ23 Encounter for xixwqjqcuwcqC01.00 Acute maxillary sinusitis, nqikkymvwpqW34.81 Allergic rhinitis due to animal ( cat) (dog) hair and dgrjqsX43.1 Allergic rhinitis due to vtjmpdV30.2 Other seasonal allergic upgkzfwlR65.89 Other allergic rhinitisRecommendations: Continue all medications as prescribed.Refrain from wearing perfumes/scented colognes while visitingour office. Start the Azithromycin today Use the Azelestine 2 sprays daily Continue the Flonase2 sprays daily Continue the levocetirizine 1 daily Continue the Xopenex 2 puffs every 4 hours as needed for cough, shortness of breath, chest congestion and wheezing. Monitor Albuterol use. If using more than 2x/week, please call the office as your asthma medications may need to be adjusted.
--- OUTSIDE RECORDS SUMMARY | 2019-01-22 17:17 | XMS REPORT | Continuity of Care Document ---
:1975 External Reference #:[id number] Author Name Agnisezka Swann Care Team Providers Name Role Phone Maya Parra MD Primary Care Physician Unavailable Payers Date Identification Numbers Payment Provider Subscriber Policy Number: [id number] Reagan Gely Chang Group Number: [id number] [address] PayID: [id number] [place] [address] Effective: 2017 Policy Number: [id number] Medicaid Gely Chang Expires: 2018 Group Name: 1 1 [address] PayID: [id number] [place] [address] Advance Directives Description No Information Available Problems Date Description Provider Status Onset: 03/27/2018 Hypothyroidism Reynaldo Davenport NP Active Note: 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 through [facility] (methimizole and biopsies large as a ruptured); had Ciara's resection in [place] after palpitations (HR 130s on propranolol) and [...] Note: Dr Sommer has referred her to [facility] - pelvic pain specialist' Onset: 12/10/2016 Unexplained weight loss Suraj Ann MD Active Note: weighed 220 March 2018 (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 Smoked 1/2ppd from Smoking Status Reviewed: 01/12/19 Patient is a former quit 6 months ago smoker (01/2018). Smoked 1/2ppd from - Exercise Type/Frequency Exercises regularly Allergies, Adverse Reactions, Alerts Date Description Reaction Status Severity Comments 03/27/2018 Levaquin hives and swelling Active 03/27/2018 Avelox hives and swelling Active 03/27/2018 Erythromycin hives and swelling Active 03/27/2018 Eggplant hives Active Medications Medication Date Status Form Strength Qnty SIG Indications Ordering Provider Azithromycin 01/12 Active Tablets 250mg 6tabs take 2 J01.90 tablets MD Eamon today; then one tablet daily Levothyroxine 12/09 Active Tablets 125mcg 30tab take 1/2 Reynaldo s tablet by ADONIS Davenport mouth once daily every morning before breakfast Xanax 10/29 Active Tablets 0.25mg 30tab one by Reynaldo s mouth up to ADONIS Davenport two times daily as needed for anxiety Ondansetron HCL 10/29 Active Tablets 4mg 30tab one tablet R11.0 Suraj Contreras. s every 8 Seth, hours as needed for nausea. Cholestyramine 07/22 Active Packet 4gm 60uni take one Suraj Cassidy ts packet a Seth, day in fluid of choice Atenolol 03/27 Active Tablets 50mg 45tab 1 by mouth Reynaldo s every in ADONIS Davenport the morning and 1/2 tablet in at night Metformin HCL 03/27 Active Tablets 500mg 60tab 1 by mouth Reynaldo s once a day ADONIS Davenport Levalbuterol HCL Active Nebulizer 0.63mg/3M use 3-4x Unknown L daily as needed for shortness of breath Qvar Active Aerosol 40mcg/Act 2 puff Unknown twice a day as needed Qvar Redihaler Active Aerosol 80mcg/Act 1 puff twice daily as needed Xyzal Active Tablets 5mg 1 by mouth Unknown every day Zyrtec Allergy Active Capsules 10mg take one tablet by mouth twice a day Potassium Active Tablets ER 20Meq TK 1 T PO Unknown Chloride Sharonda ER qd Magnesium-Oxide Active Tablets 400(241.3 Davidenko / Mg) mg , MD Gustavo Levothyroxine 11/11 Hx Tablets 100mcg 30tab 1 by mouth Reynaldo s every day ADONIS Davenport - 12/09 Ondansetron 10/29 Hx Tablets 4mg 30tab dissolve R11.0 Reynaldo Dispers s one tablet Ethel, HEAT TREAT SUPERVISOR - orally 10/29 every hours as needed for nausea. Metronidazole 10/06 Hx Gel 0.75% 45gm one N76.0 Dvora applicator Kemal - per vagina 12/09 daily x days Terconazole 10/06 Hx Cream 0.4% 45gm one N76.0 applicator Kemal - per vagina 12/07 every night at bedtime x 7 nights Norethindrone 08/25 Hx Tablets 0.35mg 28tab 1 by mouth N83.202 Dvorah s every day Jovanni Sommer MD 12/09 Reglan 08/18 Hx Tablets 10mg Reynaldo /2017 Ethel, HEAT TREAT SUPERVISOR - 08/18 Prochlorperazine 08/18 Hx Tablets 5mg 30tab 1-2 tabs R10.9 Reynaldo Maleate s every 8 Ethel, HEAT TREAT SUPERVISOR - hours as 10/29 needed for /2018 nausea. Tramadol HCL 08/18 Hx Tablets 50mg 20tab 1-2 tablets R10.9 Reynaldo /2017 s every 12 Ethel, HEAT TREAT SUPERVISOR - hours as 12/08 needed for /2019 pain. Triamcinolone 04/21 Hx Lotion 0.1% 60uni apply to R21 Jennifer Acetonide ts dry skin Varn, - once or N.P. 05/05 twice daily Medrol 04/21 Hx TBPK 4mg 21uni 6 by mouth R21 ts day 1, 5 by Varn, - mouth day N.P. 04/27 2, 4 by /2017 mouth day 3, 3 by mouth day 4, 2 by mouth day 5, 1 by mouth day 6 Levothyroxine 03/27 Hx Tablets 150mcg 30tab 1 by mouth Reynaldo Sodium /2017 s every day Ethel, HEAT TREAT SUPERVISOR - 11/11 Zofran Odt 00 Hx Tablets 4mg 1 tab by Unknown /0000 Dispers mouth every - 6 hours as 08/18 needed nausea Immunizations Description No Information Available Vital Signs Date Vital Result Comment 01/12/2019 2:46pm Height 66 inches 5'6" Weight 196.25 lb Heart Rate 61 /min BP Systolic 119 mmHg BP Diastolic 76 mmHg Body Temperature 98.1 F O2 % BldC Oximetry 97 % BMI (Body Mass Index) 31.7 kg/m2 12/10/2018 11:01am Height 66 inches 5'6" Weight [...] Mass Index) 34.6 kg/m2 Last Menstrual Period [id number] 07/24/2018 3:25pm Height 66 inches 5'6" Weight [...] Result H/L Range Note Laboratory test 12/09/2018 [facility] Hemoglobin A1c 6.7 % High 4.0-5.[address] (Glyco HGB) [place] [address] [phone] Lipid Profile 12/09/2018 [facility] Triglycerides 154 mg/dL 2 (Trig/Chol/HDL) [address] [place] [address] [phone] Cholesterol 213 mg/dL 3 HDL Cholesterol 51.6 mg/dL 4 LDL Cholesterol 131 mg/dL 5 Urine Microalbumin 12/09/2018 [facility] Ur Microalbumin < 15.[address] (mg/L) [place] [address] [phone] Urine Creatinine 238.41 mg/dL Urine Microalbumin/Creatinine TNP <31 6 Laboratory test 12/09/2018 [facility] TSH (Thyroid 10.54 High 0.34-5.[address] Stim Horm) mcIU/[place] [address] [phone] Magnesium 2.0 mg/dL N 1.9-2.7 Laboratory test 11/03/2018 [facility] Surgical SEE RESULT [address] [place] [address] [phone] Laboratory test 10/06/2018 [facility] Gardnerella/Yeas SEE RESULT [address] t: [place] [address] [phone] Xray 09/28/2018 [facility] US Transvaginal <pending> [address] [place] [address] [phone] GC/Chlamydia 08/25/2018 [facility] Chlamydia Negative Negative Amplified Rna [address] [place] [address] [phone] Neisseria gonorrhoeae (GC) Rna Negative Negative Laboratory test 08/25/2018 [facility] Trichomonas Negative Negative [address] [place] [address] [phone] Laboratory test 08/25/2018 [facility] Gardnerella/Yea SEE RESULT [address]: [place]ag[place] [address] [phone] GC/Chlamydia 07/24/2018 [facility] Chlamydia Negative Negative Amplified Rna [address] [place] [address] [phone] Neisseria gonorrhoeae (GC) Rna Negative Negative 1 Therapeutic target for the treatment of diabetes mellitus patients is <7% HBA1C, and in selective patients <6.0%. Please refer to [place] [employer] diabetic care guidelines for further information. 2 Desirable: <150 Borderline High: 150-199 High: 200-499 Very High: >500 3 Desirable: <200 Borderline High: 200-239 High: >239 4 Low: <40 Desirable: 40-60 High: >60 5 Desirable: <100 Near Optimal: 100-129 Borderline High: 130-159 High: 160-189 Very High: >189 6 Unable to calculate due to low microalbumin 7 SEE RESULT BELOW Name: GELY CHANG : [address]: Alyson Sommer MD Acct: [id number] Unit: [id number] AGE: 43 Location: [facility] Re11/03/18 SEX: F Status: REG REF SPEC: [id number] FERMIN: 11/03/[address] [facility] [address]: Alyson Sommer MD REQ: [id number] RECD: 11/03/18 STATUS: SOUT _ ORDERED: LEVEL 4 COMMENTS: [id number] FINAL DIAGNOSIS Uterus, endometrium, biopsy: -- Late [...] 1048 END OF REPORT DEPARTMENT OF PATHOLOGY, [address] [place] [address] Gomez Brown M.D. Director [facility] # [id number] 8 SEE RESULT BELOW Name: GELY CHANG : [address]: Alyson Sommer MD Acct: [id number] Unit: [id number] AGE: 43 Location: [facility] Re10/06/18 SEX: F Status: REG REF SPEC: [id number] FERMIN: 10/06/[address] [facility] [address]: Alyson Sommer MD REQ: [id number] RECD: 10/06/18 STATUS: COMP _ SOURCE: VAGINAL SPDESC: ORDERED: Suresh,Yeast DNA, Trich DNA COMMENTS: [id number] Would you like to order Trichomonas Vaginalis [...] CONTINUED ON NEXT PAGE DEPARTMENT OF PATHOLOGY, [address] [place] [address] Gomez Brown M.D. Director [facility] # [id number] Patient: HERVEGELY [id number] (Continued) Specimen: [id number] Collected: 10/06/18 Received: 10/06/18 (Continued) Procedure Result Reported Site Trichomonas: Vaginal DNA Probe Final (continued) 10/07/18- 1408 The presence or absence of T. vaginalis cannot be used as a test for therapeutic success or failure. * - Main Lab . END OF REPORT DEPARTMENT OF PATHOLOGY, [address] [place] [address] Gomez Brown M.D. Director [facility] # [id number] GC/Chlamydia Source?: Endocervical Trichomonas Source: Endocervical 10 SEE RESULT BELOW Name: GELY CHANG : [address]: Alyson Sommer MD Acct: [id number] Unit: [id number] AGE: 42 Location: [facility] Re08/25/18 SEX: F Status: REG REF SPEC: [id number] FERMIN: 08/25/18-[address]: Alyson Sommer MD REQ: [id number] RECD: 08/25/18 STATUS: COMP _ SOURCE: VAGINAL [facility]: ORDERED: Suresh,Yeast DNA COMMENTS: [id number] Would you like to order Trichomonas Vaginalis [...] . END OF REPORT DEPARTMENT OF PATHOLOGY, [address] [place] [address] Gomez Brown M.D. Director [facility] # [id number] Procedures Date Code Description Status 11/03/2018 66467 Endometrial Sampling W Or W/O Endocervical BX W Or W/O Completed Cerv Dilat 03/10/2018 [id number] Colonoscopy Completed 11/13/2016 [id number] Mammogram Completed Encounters Type Date Location Provider Dx Diagnosis Office Visit 12/10/2018 [facility] Gastroenterology Suraj Cassidy E03.9 Hypothyroidism , 10:15a MD Seth unspecified R11.0 Nausea K59.00 Constipation, unspecified R63.4 Abnormal weight loss Office Visit 10/29/2018 4:20p [facility] Internal Reynaldo Davenport, F41.9 Anxiety disorder, Medicine - HEAT TREAT SUPERVISOR unspecified [place] R11.0 Nausea E03.9 Hypothyroidism, unspecified I10 Essential (primary) hypertension Office Visit 10/06/2018 8:00a [facility] Alyson Sommer, N92.0 Excessive and [facility] frequent at [place] menstruation with regular cycle N76.0 Acute vaginitis L72.3 Sebaceous cyst Office Visit 08/25/2018 2:00p [facility] Alyson Sommer, N83.202 Unspecified [facility] ovarian cyst, left at [place] side R10.32 Left lower quadrant pain Office Visit 08/18/2018 10:20a [facility] Internal Reynaldo Davenport HEAT TREAT SUPERVISOR R10.9 Unspecified Medicine - abdominal pain [place] Office Visit 07/28/2018 1:30p [facility] Alyson Somemr, N83.202 Unspecified [facility] ovarian cyst, at [place] left side Office Visit 07/24/2018 3:20p [facility] Internal Maya N83.202 Unspecified Medicine - Neisha Parra ovarian cyst, [place] left side R10.2 Pelvic and perineal pain Office Visit 07/22/2018 [facility] Gastroenterology Suraj Cassidy K52.839 Microscopic 10:30a MD Seth colitis, unspecified K58.0 Irritable bowel syndrome with diarrhea E73.9 Lactose intolerance, unspecified E66.09 Other obesity due to excess calories R73.03 Prediabetes Office Visit 04/21/2018 11:40a [facility] Internal Jennifer Davila, R21 Rash and other Medicine - N.P. nonspecific skin [place] eruption Office Visit 03/27/2018 11:00a [facility] Internal Reynaldo Davenport NP E03.9 Hypothyroidism, Medicine - unspecified [place] I10 Essential (primary) hypertension R10.9 Unspecified abdominal pain Office Visit 03/10/2018 12:52p [facility] Juana Kohli, R10.12 Left upper Assoc,gerard Driver quadrant pain Hospitalists R19.7 Diarrhea, unspecified Office Visit 03/09/2018 12:51p [facility] Cristina R10.12 Left upper Assoc,gerard Edwards M.D. quadrant pain Hospitalists R19.7 Diarrhea, unspecified Office Visit 11/03/2014 6:05p [facility] Raffy Mcgill, 786.50 Pain Chest Assoc,gerard Driver Unspec Hospitalists Plan of Treatment Future Appointment(s):02/09/2019 10:00 am - Hermann Camejo MD at [facility] Psychiatric04/30/2019 4:20 pm - Reynaldo Davenport NP at [facility] Internal Medicine - Lpneasgxo74/19/2019 - Laura Knutson MDJ01.90 Acute sinusitis, unspecifiedNew Medication:Azithromycin 250 mg - take 2 tablets today; then one tablet dailyComments:Continue flonase
[2019-01-22 17:51] VITALS: BP 147/77
--- NOTE | 2019-01-22 19:49 | UC ---
Abdominal Pain Female HPI - HPI Summary HPI Summary: 43-year-old female presents with 4-5 day history of intermittent upper abdominal pain, nausea, and diarrhea. Patient has history of microcytic lymphocytic colitis and is followed by Dr. Ann GI. States that the pain is not typical of her flareups however the diarrhea is fairly typical. States during flareups her pain tends to be left-sided abdomen while her current pain is more upper abdomen primarily in the epigastric region. Describes as a gnawing pain that occasionally radiates below her lower sternum. Denies fever, chills, chest pain, palpitations, diaphoresis, shortness of breath, vomiting, blood in her stool, dysuria, frequency, urgency, or hematuria. - History of Current Complaint Chief Complaint: UCAbdominalPain Stated Complaint: NAUSEA,ABD PAIN Time Seen by Provider: 01/22/19 19:48 Hx Obtained From: Patient Hx Last Menstrual Period: 01/17 Pain Intensity: 5 Allergies/Adverse Reactions: Allergies Allergy/AdvReac Type Severity Reaction Status Date / Time erythromycin base Allergy Rash Verified 01/22/19 17:28 levofloxacin [From Levaquin] Allergy Rash Verified 01/22/19 17:28 moxifloxacin [From Avelox] Allergy Vomiting Verified 01/22/19 17:28 Penicillins Allergy Rash Verified 01/22/19 17:28 Quinolones Allergy Rash Verified 01/22/19 17:28 Home Medications: Home Medications Atenolol TAB* [Tenormin TAB* 25 MG] 25 mg PO QPM 01/22/19 [History Confirmed 12/12] Atenolol TAB* [Tenormin TAB* 50 MG] 75 mg PO SEE INSTRUCTIONS PRN 01/22/19 [ History Confirmed 01/22/19] Azelastine 0.15% NASAL(NF) [Astepro 0.15% NASAL (NF)] 2 spray NASAL DAILY [History Confirmed 01/22/19] Cetirizine* [ZyrTEC 10 MG TAB*] 10 mg PO DAILY 01/22/19 [History Confirmed 01/22] EPINEPHrine [Epipen] 0.3 mg IJ SEE INSTRUCTIONS PRN 01/22/19 [History Confirmed 01/22/19] Fluticasone Furoate [Arnuity Ellipta] 100 mcg IN DAILY 01/22/19 [History Confirmed 01/22/19] Levalbuterol HFA INHALER* [Xopenex Hfa Inhaler*] 2 puff INH Q6H PRN 01/22/19 [ History Confirmed 01/22/19] Potassium Chlor TAB* [Klor Con ER TAB*] 20 meq PO DAILY 01/22/19 [History Confirmed 01/22/19] Triamcinolone Inh 1 dose INH SEE INSTRUCTIONS 01/22/19 [History Confirmed ] PMH/Surg Hx/FS Hx/Imm Hx Endocrine History: Diabetes, Hypothyroidism Cardiovascular History: Hypertension Respiratory History: Asthma GI/ History: Gall Bladder Disease, Other - Microcytic lymphocytic colitis Psychological History: Anxiety - Surgical History Surgical History: Yes Surgery Procedure, Year, and Place: Cholecystectomy, LEEP x 3, tubal ligation thyroidectomy - Family History Known Family History: Positive: Cardiac Disease, Hypertension - Social History Occupation: Employed Full-time Lives: With Family Alcohol Use: Occasionally Substance Use Type: Marijuana Substance Use Comment - Amount & Last Used: medical-last taken 01/21/19 Smoking Status (MU): Current Some Day Smoker Type: Cigarettes Length of Time of Smoking/Using Tobacco: 15 years on and off Household Exposure Type: Cigarettes - Immunization History Most Recent Influenza Vaccination: 5 yrs ago Most Recent Tetanus Shot: 5yrs ago Most Recent Pneumonia Vaccination: none Review of Systems All Other Systems Reviewed And Are Negative: Yes Constitutional: Negative: Fever, Chills Respiratory: Negative: Shortness Of Breath, Cough Cardiovascular: Negative: Palpitations, Chest Pain Gastrointestinal: Positive: Abdominal Pain, Diarrhea, Nausea. Negative: Vomiting Genitourinary: Negative: Dysuria, Hematuria, Frequency, Urgency, Vaginal/Penile Discharge, Abnormal Bleeding Musculoskeletal: Positive: Negative Neurological: Positive: Negative Is Patient Immunocompromised?: No Physical Exam - Summary Physical Exam Summary: GENERAL APPEARANCE: Well developed, well nourished, alert and cooperative, and appears to be in no acute distress. EYES: Conjunctiva clear. No drainage. PERRL, EOM intact. Vision is grossly intact. EARS: External auditory canals and tympanic membranes clear, hearing grossly intact. NOSE: No nasal discharge. THROAT: Pharynx normal No tonsilar inflammation, swelling, exudate, or lesions. Uvula midline. Oral cavity normal. Teeth and gingiva in good general condition. NECK: Neck supple, non-tender without lymphadenopathy. CARDIAC: Normal S1 and S2. No S3, S4 or murmurs. Rhythm is regular. There is no peripheral edema, cyanosis or pallor. Extremities are warm and well perfused. Capillary refill is less than 2 seconds. Peripheral pulses intact. LUNGS: Clear to auscultation without rales, rhonchi, wheezing or diminished breath sounds. ABDOMEN: Positive bowel sounds. Soft, nondistended, nontender. No guarding or rebound. No masses or hepatosplenomegally. MUSKULOSKELETAL: ROM intact to all extremities. No joint erythema or tenderness. Normal muscular development. Normal gait. SKIN: Skin normal color, texture and turgor with no lesions or eruptions. Triage Information Reviewed: Yes Vital Signs: Initial Vital Signs Temp 98.4 F 01/22/19 17:42 Pulse 62 01/22/19 17:42 Resp 18 01/22/19 17:42 BP 147/77 01/22/19 17:42 Pulse Ox 100 01/22/19 17:42 Vital Signs Reviewed: Yes Diagnostics - EKG Cardiac Rate: NL Cardiac Rhythm: Sinus: Normal Ectopy: None ST Segment: Normal Summary of EKG Findings: NSR rate 60 without ectopy, CARROLL, or T-wave abnormalities. Abd Pain Female Course/Dx - Course Course Of Treatment: 43-year-old female presents with 4-5 day history of intermittent upper abdominal pain, nausea, and diarrhea. Patient has history of microcytic lymphocytic colitis and is followed by Dr. Ann, GI. States that the pain is not typical of her flareups however the diarrhea is fairly typical. States during flareups her pain tends to be left-sided abdomen while her current pain is more upper abdomen primarily in the epigastric region. Describes as a gnawing pain that occasionally radiates below her lower sternum. Denies fever, chills, chest pain, palpitations, diaphoresis, shortness of breath, vomiting, blood in her stool, dysuria, frequency, urgency, or hematuria. Afebrile. Elevated blood pressure otherwise vital signs within normal parameters. Exam reveals an adult female in no acute distress with a soft mildly tender abdomen over 30 right upper quadrant, epigastric abdomen, and left lower quadrant without guarding or rebound and otherwise unremarkable exam. 12-lead EKG showed normal sinus rhythm at a rate of 60 with no ectopy, ST elevation, T-wave changes. Phdir-zr-ghyn urinalysis was negative. Discussed with patient that symptoms are likely related to her lymphocytic colitis however I cannot fully rule out other causes including pancreatitis, hepatitis, peptic ulcer disease, or GERD. Patient states that she has been out of her Zofran for a couple days therefore I will send him a prescription for ondansetron 8 mg every 8 hours as needed for nausea and I'm recommending that she try using an gmvr-jhc-hbwhtsu ranitidine 150 mg twice a day to see if this improves her symptoms. Patient is to follow-up with her telecommunications consultant in 3 days if her symptoms do not improve. I discussed warning symptoms that would require immediate evaluation in the emergency room with the patient and encouraged her to have a very low threshold for evaluation should her symptoms worsen. Patient verbalizes understanding and is agreeable with this plan of care. - Differential Dx/Diagnosis Differential Diagnosis: Hepatitis, Irritable Bowel Syndrome, Pancreatitis, Peptic Ulcer Disease, Renal Colic, Urinary Tract Infection, Other - Colitis Provider Diagnosis: Acute abdominal pain, Lymphocytic colitis Discharge - Sign-Out/Discharge Documenting (check all that apply): Patient Departure All imaging exams completed and their final reports reviewed: No Studies - Discharge Plan Condition: Stable Disposition: HOME Prescriptions: Ondansetron [Ondansetron Odt] 8 mg PO Q8HR #9 tab Patient Education Materials: Acute Abdominal Pain (ED) Referrals: Reynaldo Davenport NP [Primary Care Provider] - Suraj Ann MD [Medical Doctor] - 3 Days (If no improvement in symptoms.) Additional Instructions: Your abdominal pain is likely due to your colitis however I cannot fully rule out other conditions such as peptic ulcer disease, gastric reflux, pancreatitis , or liver disease. Use the ondansetron (Zofran) 8 mg tablet every 8 hours as needed for nausea or vomiting. I would recommend trying to use over the counter Zantac (ranitidine) 150 mg twice a day for next 7 days to see if this helps improve your symptoms. Use your questran according to directions for the diarrhea. Follow up with Dr. Ann in 3 days of no improvement in symptoms. Seek immediate medical attention in the emergency room if you develop fever greater than 100.5 F, have worsening abdominal pain, persistent or projectile vomiting, blood in your emesis, blood in your stool, or any worsening of symptoms. - Billing Disposition and Condition Condition: STABLE Disposition: Home - Attestation Statements Provider Attestation: I was available for consult. This patient was seen by the JONATHAN. The patient was not presented to, seen by, or examined by me. EK
== END 2019-01-22 20:13 | disposition home or self-care (01) ==
LOC: UCCORT 17:08
DX: R10.10 Upper abdominal pain, unspecified (principal); K52.832 Lymphocytic colitis; F17.210 Nicotine dependence, cigarettes, uncomplicated; E11.9 Type 2 diabetes mellitus without complications; I10 Essential (primary) hypertension; J45.909 Unspecified asthma, uncomplicated; R19.7 Diarrhea, unspecified; Z88.1 Allergy status to other antibiotic agents; Z88.0 Allergy status to penicillin; Z88.8 Allergy status to other drugs, medicaments and biological substances; Z79.51 Long term (current) use of inhaled steroids
CPT/HCPCS: 81003; 93005; 99212; G0463

== ENCOUNTER 2019-03-21 09:51 | Emergency (ER) | payer OTHER ==
[2019-03-21 10:12] VITALS: BP 114/69
--- NOTE | 2019-03-21 10:40 | UC ---
Complaint Female HPI - HPI Summary HPI Summary: Pt presents with c/o inability feel the urge to urinate. Pt is concerned that she may have a UTI. Pt has low back discomfort. Denies weakness in bilateral LE or numbness. Pt denies injury, pain or loss of bladder control, no incontinence. - History Of Current Complaint Chief Complaint: UCBackPain Stated Complaint: URINARY COMPLAINT Time Seen by Provider: 03/21/19 10:00 Hx Obtained From: Patient Hx Last Menstrual Period: 03/10/19 ?: No Onset/Duration: Sudden Onset, Still Present Timing: Constant Severity Initially: Mild Severity Currently: Mild Pain Intensity: 3 Character: Not Applicable Aggravating Factor(s): Urination Alleviating Factor(s): Nothing Associated Signs And Symptoms: Positive: Back Pain - Risk Factors Ectopic Risk Factor: Negative Ovarian Torsion Risk Factor: Negative - Allergies/Home Medications Allergies/Adverse Reactions: Allergies Allergy/AdvReac Type Severity Reaction Status Date / Time erythromycin base Allergy Rash Verified 03/21/19 10:01 levofloxacin [From Levaquin] Allergy Rash Verified 03/21/19 10:01 moxifloxacin [From Avelox] Allergy Vomiting Verified 03/21/19 10:01 Penicillins Allergy Rash Verified 03/21/19 10:01 Quinolones Allergy Rash Verified 03/21/19 10:01 Home Medications: Home Medications Sucralfate TAB* [Carafate*] 1 gm PO ACHS 03/21/19 [History Confirmed 03/21/19] PMH/Surg Hx/FS Hx/Imm Hx Previously Healthy: Yes - Surgical History Surgical History: Yes Surgery Procedure, Year, and Place: Cholecystectomy, LEEP x 3, tubal ligation , thyroidectomy,CYST REMOVAL OVARY - Family History Known Family History: Positive: Cardiac Disease, Hypertension - Social History Occupation: Employed Full-time Lives: With Family Alcohol Use: Occasionally Substance Use Type: Marijuana Substance Use Comment - Amount & Last Used: Medical Marijuana Smoking Status (MU): Light Every Day Tobacco Smoker Type: Cigarettes Amount Used/How Often: <1/4 PPD Length of Time of Smoking/Using Tobacco: 15 years on and off Have You Smoked in the Last Year: Yes Household Exposure Type: Cigarettes - Immunization History Most Recent Influenza Vaccination: 5 yrs ago Most Recent Tetanus Shot: 5yrs ago Most Recent Pneumonia Vaccination: none Vaccination Up to Date: Yes Review of Systems All Other Systems Reviewed And Are Negative: Yes Constitutional: Positive: Negative Skin: Positive: Negative Eyes: Positive: Negative ENT: Positive: Negative Respiratory: Positive: Negative Cardiovascular: Positive: Negative Gastrointestinal: Positive: Negative Genitourinary: Positive: Other - inability to feel urge to void. Motor: Positive: Negative Neurovascular: Positive: Negative Musculoskeletal: Positive: Negative Neurological: Positive: Negative Psychological: Positive: Negative Is Patient Immunocompromised?: No Physical Exam Triage Information Reviewed: Yes Appearance: Well-Appearing Vital Signs: Initial Vital Signs Temp 98.1 F 03/21/19 09:59 Pulse 56 03/21/19 09:59 Resp 16 03/21/19 09:59 BP 114/69 03/21/19 09:59 Pulse Ox 99 03/21/19 09:59 Vital Signs Reviewed: Yes Eye Exam: Normal ENT Exam: Normal Dental Exam: Normal Neck exam: Normal Respiratory Exam: Normal Cardiovascular Exam: Normal Abdominal Exam: Normal Abdomen Description: Positive: Nontender Musculoskeletal Exam: Normal Neurological Exam: Normal Psychological Exam: Normal Skin Exam: Normal Complaint Female Dx - Differential Dx/Diagnosis Differential Diagnosis/HQI/PQRI: Urinary Tract Infection Provider Diagnosis: Retention of urine, unspecified Discharge - Sign-Out/Discharge Documenting (check all that apply): Patient Departure All imaging exams completed and their final reports reviewed: No Studies - Discharge Plan Condition: Stable Disposition: HOME Patient Education Materials: Acute Urinary Retention in Women (ED) Referrals: Reynaldo Davenport NP [Primary Care Provider] - As Soon As Possible Bebo Whitmore MD [Medical Doctor] - As Soon As Possible Tory Lock MD [Medical Doctor] - If Needed Additional Instructions: PLEASE FOLLOW UP IMMEDIATELY WITH A UROLOGIST. IF YOUR SYMPTOMS WORSEN PLEASE GO DIRECTLY TO THE CLOSEST EMERGENCY ROOM. - Billing Disposition and Condition Condition: STABLE Disposition: Home
== END 2019-03-21 10:50 | disposition home or self-care (01) ==
LOC: UCCORT 09:51
DX: R33.9 Retention of urine, unspecified (principal); M54.9 Dorsalgia, unspecified; F17.210 Nicotine dependence, cigarettes, uncomplicated; Z88.1 Allergy status to other antibiotic agents; Z88.0 Allergy status to penicillin; Z88.8 Allergy status to other drugs, medicaments and biological substances
CPT/HCPCS: 81003; 87086; 99212; G0463

== ENCOUNTER 2019-04-09 18:12 | Emergency (ER) | payer BC, OTHER ==
[2019-04-09 18:33] VITALS: BP 120/74
--- NOTE | 2019-04-09 18:46 | UC ---
Respiratory Complaint HPI - HPI Summary HPI Summary: 43-year-old female who has had a cough which is now productive with greenish sputum and low-grade fever over the past 5 days. She is scheduled for a gastroparesis on Friday and she spoke with that physician who sent her here to be treated with a Z-Edmundo for her bronchitis. - History of Current Complaint Chief Complaint: UCGeneralIllness Stated Complaint: COUGH Time Seen by Provider: 04/09/19 18:45 Hx Obtained From: Patient Hx Last Menstrual Period: 04/04/19 ?: No Onset/Duration: Sudden Onset Severity Initially: Mild Severity Currently: Mild Pain Intensity: 0 Aggravating Factors: Nothing Alleviating Factors: Nothing Associated Signs And Symptoms: Positive: URI, Nasal Congestion - Allergies/Home Medications Allergies/Adverse Reactions: Allergies Allergy/AdvReac Type Severity Reaction Status Date / Time erythromycin base Allergy Rash Verified 04/09/19 18:33 levofloxacin [From Levaquin] Allergy Rash Verified 04/09/19 18:33 moxifloxacin [From Avelox] Allergy Vomiting Verified 04/09/19 18:33 Penicillins Allergy Rash Verified 04/09/19 18:33 Quinolones Allergy Rash Verified 04/09/19 18:33 PMH/Surg Hx/FS Hx/Imm Hx Previously Healthy: Yes Endocrine History: Diabetes, Thyroid Disease Respiratory History: Asthma - Surgical History Surgical History: Yes Surgery Procedure, Year, and Place: Cholecystectomy, LEEP x 3, tubal ligation , thyroidectomy,CYST REMOVAL OVARY - Family History Known Family History: Positive: Cardiac Disease, Hypertension - Social History Alcohol Use: None Substance Use Type: Marijuana Substance Use Comment - Amount & Last Used: Medical Marijuana Smoking Status (MU): Current Some Day Smoker Type: Cigarettes Amount Used/How Often: <1/4 PPD Length of Time of Smoking/Using Tobacco: 15 years on and off Have You Smoked in the Last Year: Yes Household Exposure Type: Cigarettes - Immunization History Most Recent Influenza Vaccination: 5 yrs ago Most Recent Tetanus Shot: 5yrs ago Most Recent Pneumonia Vaccination: none Vaccination Up to Date: Yes Review of Systems All Other Systems Reviewed And Are Negative: Yes Respiratory: Positive: Cough - Productive cough of greenish sputum. Gastrointestinal: Positive: Other - Patient has gastroparesis and drinks 5 milkshakes per day and only 1 solid meal. Is Patient Immunocompromised?: No Physical Exam Triage Information Reviewed: Yes Appearance: Well-Appearing, No Pain Distress, Well-Nourished Vital Signs: Initial Vital Signs Temp 98 F 04/09/19 18:30 Pulse 73 04/09/19 18:30 Resp 15 04/09/19 18:30 BP 120/74 04/09/19 18:30 Pulse Ox 98 04/09/19 18:30 Vital Signs Reviewed: Yes Eyes: Positive: Conjunctiva Clear ENT: Positive: Pharynx normal, Nasal drainage, TMs normal, Uvula midline Neck exam: Normal Neck: Positive: Supple, Nontender, No Lymphadenopathy Respiratory: Positive: No respiratory distress, No accessory muscle use, Rhonchi - Minimal rhonchi in the lower lobes posteriorly with good air movement. No Distress. Cardiovascular: Positive: RRR, No Murmur, Pulses Normal, Brisk Capillary Refill Musculoskeletal Exam: Normal Neurological Exam: Normal Psychological Exam: Normal Skin Exam: Normal Respiratory Course/Dx - Course Course Of Treatment: Patient is comfortable here with no complaints. Able to treat her with a liquid Z-Edmundo since she cannot eat any solid food right now because of the gastroparesis testing she has coming up on Friday. She is follow-up with her primary care provider if no improvement in 3 or 4 days. - Differential Dx/Diagnosis Provider Diagnosis: Bronchitis Discharge - Sign-Out/Discharge Documenting (check all that apply): Patient Departure All imaging exams completed and their final reports reviewed: No Studies - Discharge Plan Condition: Fair Disposition: HOME Prescriptions: Azithromycin 100 MG/5 ML SUSP* [Zithromax SUSP* 100 MG/5 ML] 500 mg PO DAILY 5 Days #75 ml Patient Education Materials: Acute Bronchitis (ED) Referrals: Reynaldo Davenport NP [Primary Care Provider] - Additional Instructions: Increase fluids, follow-up with your primary care provider if no improvement in 3 or 4 days. - Billing Disposition and Condition Condition: FAIR Disposition: Home - Attestation Statements Provider Attestation: Per institutional requirements, I have reviewed the chart, however, I was not consulted specifically or made aware of this patient by the midlevel provider. I did not personally evaluate, interact with , or disposition this patient.
== END 2019-04-09 19:00 | disposition home or self-care (01) ==
LOC: UCCORT 18:12
DX: J40 Bronchitis, not specified as acute or chronic (principal); F17.210 Nicotine dependence, cigarettes, uncomplicated; E11.9 Type 2 diabetes mellitus without complications; J45.909 Unspecified asthma, uncomplicated; Z88.1 Allergy status to other antibiotic agents; Z88.0 Allergy status to penicillin; Z88.8 Allergy status to other drugs, medicaments and biological substances
CPT/HCPCS: 99212; G0463

== ENCOUNTER 2019-04-19 13:26 | Emergency (ER) | payer BC ==
[2019-04-19 13:41] VITALS: BP 128/82
--- NOTE | 2019-04-19 13:59 | UC ---
Respiratory Complaint HPI - HPI Summary HPI Summary: 43 yo female with hx of asthma presents with cough x 3 1/2 weeks finished zithromax without improvement can't use albuterol due to cardiac issues on beta ivett for HTN and palpitations low grade fever intermittent wheezing and dyspnea NEIL - History of Current Complaint Chief Complaint: UCRespiratory Stated Complaint: SOB, CHEST PAIN RECENT DX OF BRONCHITIS Time Seen by Provider: 04/19/19 13:35 Hx Obtained From: Patient Hx Last Menstrual Period: 04/02/19 Onset/Duration: Gradual Onset, Lasting Weeks Timing: Constant Severity Initially: Mild Severity Currently: Moderate Pain Intensity: 5 Pain Scale Used: 0-10 Numeric Character: Cough: Nonproductive Aggravating Factors: Allergens - ?? Associated Signs And Symptoms: Positive: Dyspnea - intermittent, Fever - low grade, Wheezing - intermittent, Nasal Congestion, Hoarseness. Negative: Dizziness, Calf Pain, Calf Swelling, Edema, Sinus Discomfort - Allergies/Home Medications Allergies/Adverse Reactions: Allergies Allergy/AdvReac Type Severity Reaction Status Date / Time erythromycin base Allergy Rash Verified 04/19/19 13:30 levofloxacin [From Levaquin] Allergy Rash Verified 04/19/19 13:30 moxifloxacin [From Avelox] Allergy Vomiting Verified 04/19/19 13:30 Penicillins Allergy Rash Verified 04/19/19 13:30 Quinolones Allergy Rash Verified 04/19/19 13:30 Home Medications: Home Medications Beclomethasone 80 MCG MDI(NF) [Qvar 80 MCG MDI(NF)] 2 puff INH BID 04/19/19 [ History Confirmed 04/19/19] PMH/Surg Hx/FS Hx/Imm Hx Previously Healthy: No - Lyme disease Endocrine History: Diabetes Cardiovascular History: Hypertension, Other Other Cardiovascular History: palpitations Respiratory History: Asthma, Bronchitis, Pneumonia GI/ History: Other Other GI/ History: gastroparesis, colitis Psychological History: Anxiety Cancer History: Cervical Cancer - Surgical History Surgical History: Yes Surgery Procedure, Year, and Place: Cholecystectomy, LEEP x 3, tubal ligation , thyroidectomy,CYST REMOVAL OVARY - Family History Known Family History: Positive: Cardiac Disease, Hypertension, Diabetes - Social History Alcohol Use: Rare Substance Use Type: Marijuana Substance Use Comment - Amount & Last Used: Medical Marijuana Smoking Status (MU): Current Some Day Smoker Type: Cigarettes Amount Used/How Often: <1/4 PPD Length of Time of Smoking/Using Tobacco: 15 years on and off Have You Smoked in the Last Year: Yes Household Exposure Type: Cigarettes - Immunization History Most Recent Influenza Vaccination: 5 yrs ago Most Recent Tetanus Shot: 5yrs ago Most Recent Pneumonia Vaccination: none Vaccination Up to Date: Yes Review of Systems All Other Systems Reviewed And Are Negative: Yes Constitutional: Positive: Fever, Fatigue Skin: Positive: Negative Eyes: Positive: Negative ENT: Positive: Sinus Congestion Respiratory: Positive: Shortness Of Breath, Cough, Other - back hurts when she [place] Cardiovascular: Positive: Negative Gastrointestinal: Positive: Negative Genitourinary: Positive: Negative Motor: Positive: Negative Neurovascular: Positive: Negative Musculoskeletal: Positive: Negative Neurological: Positive: Negative Psychological: Positive: Negative Physical Exam Vital Signs: Initial Vital Signs Temp 98.3 F 04/19/19 13:35 Pulse 67 04/19/19 13:35 Resp 18 04/19/19 13:35 BP 128/82 04/19/19 13:35 Pulse Ox 98 04/19/19 13:35 Diagnostics - Radiology No standard instances Radiology Interpretation Completed By: Radiologist Summary of Radiographic Findings: hyperinflation, no infiltrate Respiratory Course/Dx - Differential Dx/Diagnosis Provider Diagnosis: Bronchitis Discharge - Sign-Out/Discharge Documenting (check all that apply): Patient Departure All imaging exams completed and their final reports reviewed: Yes - Discharge Plan Condition: Stable Disposition: HOME Prescriptions: Azithromycin 200/5 SUSP(NF) [Zithromax 200 mg/5 ml SUSP(NF)] 500 mg PO .NOW, THEN 250MG BOZENA #1 btl PrednisoLONE 3 MG/ML ORAL.SOLU [PrednisoLONE 3 MG/ML 5 ml ORAL.SOLUTION*] 45 mg PO DAILY #75 ml Patient Education Materials: Acute Bronchitis (ED) Referrals: Reynaldo Davenport NP [Primary Care Provider] - As Soon As Possible - Billing Disposition and Condition Condition: STABLE Disposition: Home
== END 2019-04-19 14:37 | disposition home or self-care (01) ==
LOC: UCCORT 13:26
DX: J45.909 Unspecified asthma, uncomplicated (principal); E11.9 Type 2 diabetes mellitus without complications; I10 Essential (primary) hypertension; F41.9 Anxiety disorder, unspecified; F17.210 Nicotine dependence, cigarettes, uncomplicated; Z85.41 Personal history of malignant neoplasm of cervix uteri; Z88.0 Allergy status to penicillin; Z88.1 Allergy status to other antibiotic agents
CPT/HCPCS: 71046; 99212; G0463

== ENCOUNTER 2019-05-07 17:31 | Emergency (ER) | payer BC ==
[2019-05-07 18:03] VITALS: BP 151/81
--- NOTE | 2019-05-07 19:09 | UC ---
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 SINUS PRESSURE AND PAIN. PAIN RADIATING TO HER NECK AND LEFT SHOULDER WELL. CHEST FEELS "VERY ACHEY". NO SOB . PT STATES SHE HAS ANXIETY AND HAS BEEN UNDER A LOT OF STRESS RECENLY. " -she has complex medical hx. cant eat a lot bc gastroparesis. she is on medical MJ. she thinks if she eats and drinks something she will feel better. she feels liek she is in [place] while she is waiting to be seen (after initial EKG) as her phone told he she is. 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 she ate crackers and drank water and feels much better. -her grandson committed suicide earier this year. she has had a lot of emotional trauma. has been traveling a lot and was in hotel room past 3 nights, -seh feels swelling left neck, upper and middle trap, left shoulder and left face. denies any pain w/ eating sour foods. -she had a significant URI for which she was on abx 1.5 wks ago. ear pain started while she was on abx. also had tonsil stones. - History of Current Complaint Chief Complaint: UCGeneralIllness Stated Complaint: NECK/SHOULDER/CHEST PAIN Time Seen by Provider: 05/07/19 18:58 Hx Last Menstrual Period: 04/27/19 Pain Intensity: 5 - Allergy/Home Medications Allergies/Adverse Reactions: Allergies Allergy/AdvReac Type Severity Reaction Status Date / Time erythromycin base Allergy Rash Verified 05/07/19 17:47 levofloxacin [From Levaquin] Allergy Rash Verified 05/07/19 17:47 moxifloxacin [From Avelox] Allergy Vomiting Verified 05/07/19 17:47 Penicillins Allergy Rash Verified 05/07/19 17:47 Quinolones Allergy Rash Verified 05/07/19 17:47 Home Medications: Home Medications Medical Marijuana 05/07/19 [History] PMH/Surg Hx/FS Hx/Imm Hx Previously Healthy: Yes Endocrine History: Diabetes, Thyroid Disease Respiratory History: Asthma - Surgical History Surgical History: Yes Surgery Procedure, Year, and Place: Cholecystectomy, LEEP x 3, tubal ligation , thyroidectomy,CYST REMOVAL OVARY - Family History Known Family History: Positive: Cardiac Disease, Hypertension, Diabetes - Social History Alcohol Use: Rare Substance Use Type: Marijuana Substance Use Comment - Amount & Last Used: Medical Marijuana Smoking Status (MU): Current Some Day Smoker Type: Cigarettes Amount Used/How Often: 3 CIGS A DAY Length of Time of Smoking/Using Tobacco: 15 years on and off Have You Smoked in the Last Year: Yes Household Exposure Type: Cigarettes - Immunization History Most Recent Influenza Vaccination: 5 yrs ago Most Recent Tetanus Shot: 5yrs ago Most Recent Pneumonia Vaccination: none Vaccination Up to Date: Yes Review of Systems All Other Systems Reviewed And Are Negative: Yes Constitutional: Positive: Fatigue Eyes: Positive: Negative ENT: Positive: Ear Ache. Negative: Sinus Congestion, Sinus Pain/Tenderness Respiratory: Positive: Negative. Negative: Shortness Of Breath, Cough Cardiovascular: Positive: Palpitations Gastrointestinal: Positive: Nausea Genitourinary: Positive: Negative Motor: Positive: Negative Neurovascular: Positive: Negative Musculoskeletal: Positive: Myalgia Neurological: Positive: Negative Psychological: Positive: Negative Is Patient Immunocompromised?: No Physical Exam Triage Information Reviewed: Yes Appearance: Well-Appearing, No Pain Distress, Well-Nourished - very pleasant Vital Signs: Initial Vital Signs Temp 97.9 F 05/07/19 17:52 Pulse 64 05/07/19 17:52 Resp 15 05/07/19 17:52 BP 151/81 05/07/19 17:52 Pulse Ox 98 05/07/19 17:52 Eye Exam: Normal Eyes: Positive: Conjunctiva Clear ENT: Positive: Hearing grossly normal, Pharynx normal, TMs normal, Uvula midline , Other - ? mild swelling left cheek. not tender. Negative: Pharyngeal erythema , Nasal congestion, Nasal drainage, TM bulging, TM dull, TM red, Tonsillar swelling, Tonsillar exudate, Sinus tenderness Neck: Positive: Supple, Nontender, No Lymphadenopathy, Other: - mild generalized swelling to left neck soft tissues and upper and middle traps. Negative: Nuchal Rigidity Respiratory Exam: Normal Respiratory: Positive: Lungs clear, Normal breath sounds, No respiratory distress, No accessory muscle use. Negative: Crackles, Rhonchi, Stridor, Wheezing Cardiovascular Exam: Normal Cardiovascular: Positive: RRR, No Murmur Abdominal Exam: Normal Abdomen Description: Positive: Nontender Musculoskeletal Exam: Normal Neurological Exam: Normal Neurological: Positive: Other: - FROM passive of left shoulder, NT. no erythema. strength intact. sens ibntact. CR brisk Psychological Exam: Normal Skin Exam: Normal Course/Dx - Course Course Of Treatment: EKG: NSR, no acute changes -2nd EKG done when she rpeorted palpiattions and bigemeny - EKG shows sinus goran 56 w/ 2 PVCs. symptoms resolve w/ eating crackers and drinking water -consideration given to CT head/auditory canal, face, soft tissues neck but NA at this facility. can be considered as an outpt to eval for LAD, parotid. TMJ, etc -low suspicion for cardiac cause -seh believes this is all stress related and very well could be d/t muusculskeletal tension -massage could be helpful. she is very pelase with this plan. -can f/u with bernard callejas - Differential Dx - Multi-Symptom Differential Diagnoses: Other - ear apin, neck pain - Diagnoses Provider Diagnosis: Cervicalgia, Ear pain, left Discharge - Sign-Out/Discharge Documenting (check all that apply): Patient Departure All imaging exams completed and their final reports reviewed: No Studies - Discharge Plan Condition: Stable Disposition: HOME Patient Education Materials: Anxiety (ED), Neck Pain (ED) Referrals: Reynaldo Davenport, [employer] [Primary Care Provider] - Additional Instructions: We talked today about doing a soft tisse CT aof your neck and a CT of your head to eval deeper structures that could be causing the deep ear pain/facial swelling but we are unable to provide those here. You should call your PCP on Friday for further follow up. You should go to the ER with any change in your chest pain symptoms. -massage and anxiety management may be helpful as well. - Billing Disposition and Condition Condition: STABLE Disposition: Home
== END 2019-05-07 19:27 | disposition home or self-care (01) ==
LOC: UCCORT 17:31
DX: H92.02 Otalgia, left ear (principal); M54.2 Cervicalgia; E11.9 Type 2 diabetes mellitus without complications; F17.210 Nicotine dependence, cigarettes, uncomplicated
CPT/HCPCS: 93005; 99201; G0463

== ENCOUNTER 2019-05-09 19:17 | Emergency (ER) | payer BC ==
--- NOTE | 2019-05-09 20:14 | ED ---
Complex/Multi-Sys Presentation - HPI Summary HPI Summary: 43 year old female presents with neck pain for the past week. She states she's been having ear pain. She denies any sinus pressure. States she started on Bactrim which did not help. She states that she is having left-sided rib pain. She also admits to left-sided abdominal pain which is chronic. States she also has some left shoulder pain. She has some blurry vision in her left eye. Headaches is a 6 out of 10 and is not worst headache of life. States that the pain seems started ear go down with some neck and back her neck. She denies any fevers. She admits to neck stiffness but is full range of motion of her neck. States the headache feels similar to migraine. She states she feels anxious. - History Of Current Complaint Chief Complaint: EDGeneral Time Seen by Provider: 05/09/19 19:55 - Allergies/Home Medications Allergies/Adverse Reactions: Allergies Allergy/AdvReac Type Severity Reaction Status Date / Time erythromycin base Allergy Rash Verified 05/09/19 19:24 levofloxacin [From Levaquin] Allergy Rash Verified 05/09/19 19:24 moxifloxacin [From Avelox] Allergy Vomiting Verified 05/09/19 19:24 Penicillins Allergy Rash Verified 05/09/19 19:24 Quinolones Allergy Rash Verified 05/09/19 19:24 PMH/Surg Hx/FS Hx/Imm Hx Endocrine/Hematology History: Reports: Hx Diabetes - DIET CONTROLLED, Hx Thyroid Disease Denies: Hx Systemic Lupus Erythematosus Cardiovascular History: Reports: Hx Hypertension Denies: Hx Congestive Heart Failure, Hx Pacemaker/ICD Respiratory History: Reports: Hx Asthma Denies: Hx Chronic Obstructive Pulmonary Disease (COPD) GI History: Reports: Hx Gastroesophageal Reflux Disease Denies: Hx Ulcer History: Denies: Hx Renal Disease Musculoskeletal History: Denies: Hx Rheumatoid Arthritis Sensory History: Denies: Hx Contacts or Glasses, Hx Hearing Aid Opthamlomology History: Denies: Hx Contacts or Glasses Psychiatric History: Denies: Hx Panic Disorder - Cancer History Cancer Type, Location and Year: Cervical cancer - Surgical History Surgery Procedure, Year, and Place: Cholecystectomy, LEEP x 3, tubal ligation , thyroidectomy,CYST REMOVAL OVARY - Immunization History Date of Tetanus Vaccine: utd Date of Influenza Vaccine: none Infectious Disease History: No Infectious Disease History: Denies: Hx Clostridium Difficile, Hx Hepatitis, Hx Human Immunodeficiency Virus (HIV), Hx of Known/Suspected MRSA, Hx Shingles, Hx Tuberculosis, Hx Known/ Suspected VRE, Hx Known/Suspected VRSA, History Other Infectious Disease, Traveled Outside the [place] in Last 30 Days - Family History Known Family History: Positive: Cardiac Disease, Hypertension, Diabetes - Social History Alcohol Use: Rare Substance Use Type: Reports: Marijuana Substance Use Comment - Amount & Last Used: Medical Marijuana Hx Tobacco Use: Yes Smoking Status (MU): Current Some Day Smoker Type: Cigarettes Amount Used/How Often: 3 CIGS A DAY Length of Time of Smoking/Using Tobacco: 15 years on and off Have You Smoked in the Last Year: Yes Review of Systems Negative: Fever Positive: Myalgia All Other Systems Reviewed And Are Negative: Yes Physical Exam Triage Information Reviewed: Yes Vital Signs On Initial Exam: Initial Vitals Temp Pulse Resp BP Pulse Ox 98.1 F 74 16 142/80 98 05/09/19 19:22 05/09/19 19:22 05/09/19 19:22 05/09/19 19:22 05/09/19 19:22 Vital Signs Reviewed: Yes Appearance: Positive: Well-Appearing Skin: Positive: Warm, Dry Head/Face: Positive: Normal Head/Face Inspection Eyes: Positive: Normal, EOMI, JANIS, Conjunctiva Clear ENT: Positive: Normal ENT inspection, Pharynx normal, TMs normal, Other - nontender over mastoid and no swelling noted to mastoid Neck: Positive: Supple, Nontender, No Lymphadenopathy. Negative: Nuchal Rigidity Respiratory/Lung Sounds: Positive: Clear to Auscultation, Breath Sounds Present Cardiovascular: Positive: Normal, RRR Abdomen Description: Positive: Soft, Other: - epigastric pain Bowel Sounds: Positive: Present Musculoskeletal: Positive: Strength/ROM Intact - left shoulder and neck, Other - tenderness over left side of neck and shoulder, good pulses Neurological: Positive: Sensory/Motor Intact, Alert, Oriented to Person Place, Time, CN Intact II-III Psychiatric: Positive: Normal Diagnostics - Vital Signs Vital Signs Temp Pulse Resp BP Pulse Ox 05/09/19 19:22 98.1 F 74 16 142/80 98 - Laboratory Result Diagrams: 05/09/19 20:19 05/09/19 20:19 Lab Statement: Any lab studies that have been ordered have been reviewed, and results considered in the medical decision making process. - CT brain CT Interpretation Completed By: Radiologist Summary of CT Findings: IMPRESSION: 1. No acute intracranial abnormality. 2. No change from the comparison study. cta CT Interpretation Completed By: Radiologist Summary of CT Findings: IMPRESSION: Normal head CTA. - EKG No standard instances Cardiac Rate: NL EKG Rhythm: Sinus Rhythm EKG Comparison: Other - now in sinus rhythm no PVCs Summary of EKG Findings: sinus rhythm Re-Evaluation - Re-Evaluation First Eval Re-Evaluation Time: 20:36 Comment: abd pain is chronic pain and is unchanged Second Eval Re-Evaluation Time: 22:44 Change: Improved Comment: feeling better Complex Multi-Symp Course/Dx Course Of Treatment: 43 year old female presents with neck pain for the past week. She states she's been having ear pain. She denies any sinus pressure. States she started on Bactrim which did not help. She states that she is having left-sided rib pain. She also admits to left-sided abdominal pain which is chronic. States she also has some left shoulder pain. She has some blurry vision in her left eye. Headaches is a 6 out of 10 and is not worst headache of life. States that the pain seems started ear go down with some neck and back her neck. She denies any fevers. She admits to neck stiffness but is full range of motion of her neck. States the headache feels similar to migraine. She states she feels anxious. on exam normal neuro exam. TM normal. pharynx normal. nontender mastoid and no swelling. no lymphadenopathy. no dental pain. lungs CTA. heart RRR. tenderness LUQ abd. ekg shows sinus rhythm. wbc 11. troponin zero. crp normal. lipase normal. CT brain shows no acute findings. CTA neck shows no acute findings. patient states sometimes has been getting some numbness and tingling into left arm but not currently. discussed that should follow up with primary and neurology for further work up. no neuro deficits on exam and on reevulation. patient states symptoms may also be due to anxiety. patient will work on reducing stress and anxiety. patient understand and agrees with plan. - Diagnoses Differential Diagnoses/HQI/PQRI: CVA, Metabolic Abnormality, Urinary Tract Infection Provider Diagnoses: Neck pain on left side, Headache, Chest pain, Abdominal pain Discharge - Sign-Out/Discharge Documenting (check all that apply): Patient Departure Patient Received Moderate/Deep Sedation with Procedure: No - Discharge Plan Condition: Good Disposition: HOME Patient Education Materials: Neck Pain (ED) Referrals: Reynaldo Davenport NP [Primary Care Provider] - Bandar Franco MD [Medical Doctor] - Additional Instructions: take tyenlol or ibuprofen as needed for pain place ice or heat on the area Follow up with primary Follow up with neurology Return to ED if develop any new or worsening symptoms - Billing Disposition and Condition Condition: GOOD Disposition: Home
[2019-05-09 20:26] LABS: ABS Basophils 0.1 10^3/ul (0-0.2); ABS Eosinophils 0.1 10^3/ul (0-0.6); ABS Lymphocytes 3.2 10^3/ul (1.0-4.8); ABS Monocytes 0.6 10^3/ul (0-0.8); ABS Neutrophils 7.3 10^3/ul (1.5-7.7); Eosinophil % 1.1 %; Hematocrit 43 % (35-47); Hemoglobin 14.8 g/dL (12.0-16.0); Lymphocyte % 28.3 %; Mean Corpuscular HGB Conc 34 g/dL (31-36); Mean Corpuscular Hemoglobin 33 pg (27-31); Mean Corpuscular Volume 97 fL (80-97); Mean Platelet Volume 8.6 fL (7.4-10.4); Nucleated Red Blood Cells % 0.1; Platelet Count 283 10^3/uL (150-450); Red Blood Count 4.45 10^6 /uL (3.70-4.87); Red Cell Distribution Width 13 % (10-15); White Blood Count 11.3 10^3/uL (3.5-10.8)
[2019-05-09] MEDS ORDERED: NS 0.9% 1000 ML** 1,000 ML IV ONE (20:35)
[2019-05-09 20:44] LABS: ALT 15 U/L (7-52); AST 12 U/L (13-39); Albumin 4.3 g/dL (3.2-5.2); Albumin/Globulin Ratio 1.8 (1-3); Alkaline Phosphatase 50 U/L (34-104); Anion Gap 8 mmol/L (2-11); BUN/Creatinine Ratio 17.8 (8-20); Blood Urea Nitrogen 19 mg/dL (6-24); C Reactive Protein < 1.00 mg/L (<8.01); CO2 Carbon Dioxide 24 mmol/L (22-32); Calcium 9.3 mg/dL (8.6-10.3); Chloride 108 mmol/L (101-111); EGFR African American 67.7 (>60); Globulin 2.4 g/dL (2-4); Glucose 111 mg/dL (70-100); Magnesium 2.1 mg/dL (1.9-2.7); Potassium 3.7 mmol/L (3.5-5.0); Sodium 140 mmol/L (135-145); Total Protein 6.7 g/dL (6.4-8.9)
[2019-05-09 20:50] LABS: HCG Pregnancy < 0.60 mIU/mL
[2019-05-09] MEDS ORDERED: Iodixanol* (CONTRAST) 320 MG/ML 100 ML SDV IV ONE (21:06)
[2019-05-09] MEDS ORDERED: Ketorolac INJ* 30 MG/ML 1 ML VIAL IV PUSH ONE (21:32)
[2019-05-09 23:03] VITALS: BP 151/73
== END 2019-05-09 23:02 | disposition home or self-care (01) ==
LOC: ED 19:17
DX: M54.2 Cervicalgia (principal); R07.9 Chest pain, unspecified; R51 Headache; R10.9 Unspecified abdominal pain; E11.9 Type 2 diabetes mellitus without complications; I10 Essential (primary) hypertension; K21.9 Gastro-esophageal reflux disease without esophagitis; Z88.0 Allergy status to penicillin; Z72.0 Tobacco use; Z85.41 Personal history of malignant neoplasm of cervix uteri
CPT/HCPCS: 36415; 70450; 70496; 70498; 80053; 83605; 83690; 83735; 84484; 84702; 85025; 86140; 93005; 96361; 96374; 99285; J1885; Q9967

== ENCOUNTER 2019-05-10 11:36 | Emergency (ER) | payer BC ==
[2019-05-10 12:22] VITALS: BP 107/75
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
== END 2019-05-10 13:09 | disposition home or self-care (01) ==
LOC: UCCORT 11:36
DX: R10.9 Unspecified abdominal pain (principal); F17.210 Nicotine dependence, cigarettes, uncomplicated
CPT/HCPCS: 81003; 84702; 99212; G0463

== ENCOUNTER 2019-05-18 10:09 | Emergency (ER) | payer BC ==
[2019-05-18 10:27] VITALS: BP 146/87
--- NOTE | 2019-05-18 10:59 | ED ---
Abdominal Pain/Female - HPI Summary HPI Summary: 43 yr old female with the complaint of epigastric pain, and pain that is under both rib cages and also in the center of back today at the same level. She states that she has had pain for 1.5 years. She was treated for lyme at that time and reports she developed colitis. Pain this time is constant for two weeks. She states she has had a 35 pound weight loss over 7 months. She states she has been to ER in [facility], and nobody will help her. She states she has had CT scans of head, neck, and abdomen and pelvis and labs, and endoscopies over the past month and nobody finds anything. She has pain that is severe. She states she is not going to any hospital or ER today. She states she does not like her primary care doctor due to being overdosed on thyroid meds. She states her GI specialist cannot be reached and is [place] the [place]. She refuses to transfer to any hospital today for a work up of her problems. - History of Current Complaint Chief Complaint: UCAbdominalPain Stated Complaint: PAIN UNDER RIBS Time Seen by Provider: 05/18/19 10:28 Hx Last Menstrual Period: 04/27/2019 Pain Intensity: 8 Allergies/Adverse Reactions: Allergies Allergy/AdvReac Type Severity Reaction Status Date / Time erythromycin base Allergy Rash Verified 05/18/19 10:25 levofloxacin [From Levaquin] Allergy Rash Verified 05/18/19 10:25 moxifloxacin [From Avelox] Allergy Vomiting Verified 05/18/19 10:25 Penicillins Allergy Rash Verified 05/18/19 10:25 Quinolones Allergy Rash Verified 05/18/19 10:25 PMH/Surg Hx/FS Hx/Imm Hx Endocrine/Hematology History: Reports: Hx Diabetes, Hx Thyroid Disease Denies: Hx Systemic Lupus Erythematosus Cardiovascular History: Reports: Hx Hypertension Denies: Hx Congestive Heart Failure, Hx Pacemaker/ICD Respiratory History: Reports: Hx Asthma Denies: Hx Chronic Obstructive Pulmonary Disease (COPD) GI History: Reports: Hx Gastroesophageal Reflux Disease Denies: Hx Ulcer History: Denies: Hx Renal Disease Musculoskeletal History: Denies: Hx Rheumatoid Arthritis Sensory History: Denies: Hx Contacts or Glasses, Hx Hearing Aid Opthamlomology History: Denies: Hx Contacts or Glasses Psychiatric History: Denies: Hx Panic Disorder - Cancer History Cancer Type, Location and Year: Cervical cancer - Surgical History Surgery Procedure, Year, and Place: Cholecystectomy, LEEP x 3, tubal ligation , thyroidectomy,CYST REMOVAL OVARY - Immunization History Date of Tetanus Vaccine: utd Date of Influenza Vaccine: none Infectious Disease History: No Infectious Disease History: Denies: Hx Clostridium Difficile, Hx Hepatitis, Hx Human Immunodeficiency Virus (HIV), Hx of Known/Suspected MRSA, Hx Shingles, Hx Tuberculosis, Hx Known/ Suspected VRE, Hx Known/Suspected VRSA, History Other Infectious Disease, Traveled Outside the [place] in Last 30 Days - Family History Known Family History: Positive: Cardiac Disease, Hypertension, Diabetes, Renal Disease - mother- multiple kindey problems, did not know what - Social History Alcohol Use: Rare Substance Use Type: Reports: Marijuana Substance Use Comment - Amount & Last Used: Medical Marijuana Hx Tobacco Use: Yes Smoking Status (MU): Light Every Day Tobacco Smoker Type: Cigarettes Amount Used/How Often: <1/10 PPD Length of Time of Smoking/Using Tobacco: On and Off Since Age 28 Have You Smoked in the Last Year: Yes Review of Systems Positive: Fever Positive: Abdominal Pain, Vomiting, Nausea All Other Systems Reviewed And Are Negative: Yes Physical Exam - Summary Physical Exam Summary: Tearful patient expressing that she cannot be helped by anyone. Vital Signs On Initial Exam: Initial Vitals Temp Pulse Resp BP Pulse Ox 98.4 F 72 18 146/87 100 05/18/19 10:20 05/18/19 10:20 05/18/19 10:20 05/18/19 10:20 05/18/19 10:20 Vital Signs Reviewed: Yes Appearance: Positive: Obese Skin: Positive: Warm, Skin Color Reflects Adequate Perfusion Head/Face: Positive: Normal Head/Face Inspection Eyes: Positive: EOMI ENT: Positive: Normal ENT inspection Respiratory/Lung Sounds: Positive: Clear to Auscultation, Breath Sounds Present Cardiovascular: Positive: RRR. Negative: Murmur Abdomen Description: Positive: Nontender, Soft Musculoskeletal: Positive: Strength/ROM Intact Neurological: Positive: Sensory/Motor Intact, Alert, Oriented to Person Place, Time, CN Intact II-III Psychiatric: Positive: Other - angry and tearful. Diagnostics - Vital Signs Vital Signs Temp Pulse Resp BP Pulse Ox 05/18/19 10:20 98.4 F 72 18 146/87 100 - Laboratory Lab Statement: Any lab studies that have been ordered have been reviewed, and results considered in the medical decision making process. Abdominal Pain Fem Course/Dx - Course Course Of Treatment: 43 yr old with upper abdominal and back pain. Recommended she go to ER of her choice and would arrange her transfer. She refused to go to any hospital at all, and signed out AMA. Risk of delay diagnosis, , disability, worse pain. - Diagnoses Provider Diagnoses: Epigastric pain, Back pain, Hypertension Discharge - Sign-Out/Discharge Documenting (check all that apply): Patient Departure All imaging exams completed and their final reports reviewed: No Studies - Discharge Plan Condition: Good Disposition: AGAINST MEDICAL ADVICE Referrals: Reynaldo Davenport NP [Primary Care Provider] - - Billing Disposition and Condition Condition: GOOD Disposition: Against Medical Advice
== END 2019-05-18 10:50 | disposition left against medical advice (07) ==
LOC: UCCORT 10:09
DX: R10.13 Epigastric pain (principal); M54.9 Dorsalgia, unspecified; I10 Essential (primary) hypertension; E11.9 Type 2 diabetes mellitus without complications; F17.210 Nicotine dependence, cigarettes, uncomplicated
CPT/HCPCS: 99212; G0463

== ENCOUNTER 2019-06-30 11:07 | Emergency (ER) | payer BC ==
[2019-06-30 11:29] VITALS: BP 140/86
--- NOTE | 2019-06-30 12:35 | UC ---
Neck Pain HPI - HPI Summary HPI Summary: Pt presents with c/o left shoulder anterior and upper chest, rib, and neck pain that has been ongoing for months to years and most recently worsened over the last 2 days. - History of Current Complaint Chief Complaint: UCUpperExtremity Stated Complaint: NECK/COLLARBONE/LEFT SHOULDER Time Seen by Provider: 06/30/19 11:25 Hx Obtained From: Patient Hx Last Menstrual Period: 06/13/19 ?: No Onset/Duration Of Injury/Symptoms: Months Mechanism Of Injury: No Known Trauma Timing: Constant Onset/Duration: Gradual Onset, Lasting Days, Worse Since - onset Severity: Moderate Pain Intensity: 7 Location: Diffuse Character: Dull, Aching Aggravating Factors: Movement Alleviating Factors: Nothing Associated Signs & Symptoms: Positive: Negative - Risk Factors Meningitis Risk Factors: Negative - Allergies/Home Medications Allergies/Adverse Reactions: Allergies Allergy/AdvReac Type Severity Reaction Status Date / Time erythromycin base Allergy Rash Verified 06/30/19 11:29 levofloxacin [From Levaquin] Allergy Rash Verified 06/30/19 11:29 Penicillins Allergy Rash Verified 06/30/19 11:29 Quinolones Allergy Rash Verified 06/30/19 11:29 moxifloxacin [From Avelox] AdvReac Vomiting Verified 06/30/19 11:29 PMH/Surg Hx/FS Hx/Imm Hx Previously Healthy: Yes - Pt has several specialist she is following for many concerns and complaints Endocrine History: Thyroid Disease Cardiovascular History: Cardiac Disease, Other - has bigeminy, PVC's an getting a cardiac ablation next week - Surgical History Surgical History: Yes Surgery Procedure, Year, and Place: Cholecystectomy, LEEP x 3, tubal ligation , thyroidectomy,CYST REMOVAL OVARY - Family History Known Family History: Positive: Cardiac Disease, Hypertension, Diabetes, Renal Disease - mother- multiple kindey problems, did not know what - Social History Occupation: Employed Full-time Lives: With Family Alcohol Use: Rare Substance Use Type: Marijuana Substance Use Comment - Amount & Last Used: Medical Marijuana Smoking Status (MU): Heavy Every Day Tobacco Smoker Type: Cigarettes Amount Used/How Often: 1/2 ppd Length of Time of Smoking/Using Tobacco: On and Off Since Age 28 Have You Smoked in the Last Year: Yes Household Exposure Type: Cigarettes - Immunization History Most Recent Influenza Vaccination: 5 yrs ago Most Recent Tetanus Shot: 5yrs ago Most Recent Pneumonia Vaccination: none Vaccination Up to Date: Yes Review of Systems All Other Systems Reviewed And Are Negative: Yes Constitutional: Positive: Negative Skin: Positive: Negative Eyes: Positive: Negative ENT: Positive: Negative Respiratory: Positive: Negative Cardiovascular: Positive: Palpitations - known hx Gastrointestinal: Positive: Negative Genitourinary: Positive: Negative Motor: Positive: Negative Neurovascular: Positive: Negative Musculoskeletal: Positive: Edema - pt c/o upper anterior right side chest edema , Myalgia Neurological: Positive: Negative Psychological: Positive: Negative Is Patient Immunocompromised?: No Physical Exam Triage Information Reviewed: Yes Appearance: Well-Appearing Vital Signs: Initial Vital Signs Temp 98.1 F 06/30/19 11:18 Pulse 67 06/30/19 11:18 Resp 16 06/30/19 11:18 BP 140/86 06/30/19 11:18 Pulse Ox 99 06/30/19 11:18 Vital Signs Reviewed: Yes Eye Exam: Normal ENT Exam: Normal Dental Exam: Normal Neck exam: Normal Neck: Positive: Supple, Nontender, No Lymphadenopathy Respiratory Exam: Normal Cardiovascular Exam: Normal Musculoskeletal Exam: Normal Musculoskeletal: Positive: Strength Intact, ROM Intact, No Edema Neurological Exam: Normal Psychological Exam: Normal Skin Exam: Normal Diagnostics - Radiology No standard instances Radiology Interpretation Completed By: Radiologist - FINDINGS: There is straightening of the cervical spine with decrease in the normal cervical lordosis. The vertebra are otherwise in normal alignment. No prevertebral soft tissue swelling or fracture is seen. There is moderate degenerative disc disease at the C5-C6 and C6-C7 levels. IMPRESSION: 1. STRAIGHTENING OF THE CERVICAL SPINE. 2. 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 Neck Pain Course/Dx - Differential Dx/Diagnosis Differential Dx/HQI/PQRI: Cervical Fracture, Strain Provider Diagnosis: Neck pain, Upper limb pain, diffuse Discharge - Sign-Out/Discharge Documenting (check all that apply): Patient Departure All imaging exams completed and their final reports reviewed: Yes - Discharge Plan Condition: Stable Disposition: HOME Patient Education Materials: Neck Pain (ED), Chronic Neck Pain (DC) Referrals: Maria T Quesada NP [Primary Care Provider] - If Needed Additional Instructions: Please follow up with your primary care provider as needed. - Billing Disposition and Condition Condition: STABLE Disposition: Home
== END 2019-06-30 12:43 | disposition home or self-care (01) ==
LOC: UCCORT 11:07
DX: M54.2 Cervicalgia (principal); M25.512 Pain in left shoulder; E07.9 Disorder of thyroid, unspecified; F17.210 Nicotine dependence, cigarettes, uncomplicated; Z88.0 Allergy status to penicillin
CPT/HCPCS: 72050; 99212; G0463

== ENCOUNTER 2019-08-24 08:31 | Emergency (ER) | payer BC ==
--- OUTSIDE RECORDS SUMMARY | 2019-08-24 08:46 | XMS REPORT | Continuity of Care Document ---
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 Onset: 07/28/2019 Anxiety state Kelsey Stokes M.D. Onset: 07/28/2019 Tobacco user Kelsey Stokes M.D. Onset: 07/28/2019 Premature beats Gustavo Wadsworth M.D., Onset: 06/08/2019 [facility] Hypothyroidism Kelsey Stokes M.D. Onset: 05/24/2019 Essential hypertension Kelsey Stokes M.D. Onset: 05/24/2019 Type 2 diabetes mellitus Kelsey Stokes M.D. Onset: 05/24/2019 Malignant tumor of cervix Kelsey Stokes M.D. Onset: 05/24/2019 Headache Kelsey Stokes M.D. Onset: 05/24/2019 Leukocytosis Kelsey Stokes M.D. Onset: 05/24/2019 Joint pain Kelsey Stokes M.D. Onset: 05/24/2019 Malaise and fatigue Kelsey Stokes M.D. Onset: 05/24/2019 Palpitations Gustavo Wadsworth M.D., Onset: 12/16/2018 [facility] Social History Type Date Description Comments Sex Unknown Tobacco Use Start: Unknown current cigarette smoker ETOH Use Rarely consumes alcohol Recreational Drug Use Marijuana Medical card Tobacco Use Start: Unknown Patient is a current smoker, smokes every day Smoking Status Reviewed: 08/05/19 Patient is a current smoker, smokes every day Allergies, Adverse Reactions, Alerts Active Allergies Reaction Severity Comments Date Penicillin 12/16/2018 Amoxicillin 06/24/2019 Levaquin 12/16/2018 Erythromycin Hives 05/24/2019 Avelox Hives, Nausea 05/24/2019 Bananas 06/07/2019 Medications Active Medications SIG Qnty Indications Ordering Date Provider Losartan Potassium 1 by mouth every 30tabs I10 Jazzy Recio 08/05/2019 25mg day Julia, MSN, Tablets [employer] Xanax 1-2 tab by mouth Unknown 0.25mg Tablets as needed Levalbuterol HCL use 1 vial via Unknown nebulizer every 6 0.63mg/3ML Nebulizer hours as needed for shortness of breath Levothyroxine Sodium 1 by mouth every Unknown day 125mcg Tablets Atenolol 1 by mouth every Unknown 25mg Tablets day History Medications Atenolol take 50 mg every 120tabs Gustavo Wadsworth 06/10/2019 - 50mg morning and 25 M.Neisha, [facility] 07/28/2019 Tablets mg every night Flecainide Acetate take one tablet 60tabs R25.1 Gustavo Wadsworth 2018 - by mouth twice a Neisha Luis, [facility] Unknown 50mg Tablets day Verapamil HCL ER 1 by mouth every 90caps I49.3 Gustavo Wadsworth 2018 - day Neisha Luis, [facility] 06/10/2019 180mg Caps ER 24HR Potassium Chloride 1 by mouth twice 180tabs Gustavo Wadsworth 06/08/2019 - Sharonda ER a day Neisha Luis, [facility] 07/28/2019 20Meq Tablets ER Verapamil HCL ER 1 by mouth every 90caps Gustavo Wadsworth 06/04/2019 - day Neisha Luis, [facility] Unknown 180mg Caps ER 24HR Immunizations Description No Information Available Vital Signs Date Vital Result Comment 08/05/2019 3:41pm BP Systolic Sitting Left Arm 145 mmHg BP Diastolic Sitting Left Arm 82 mmHg Heart Rate 76 /min Respiratory Rate 18 /min Height 66 inches 5'6" Weight 186.00 lb BMI (Body Mass Index) 30.0 kg/m2 BSA (Body Surface Area) 1.94 m2 [place] body weight in kilograms 59 kg O2 % BldC Oximetry 98 % Ejection Fraction 60% 07/28/2019 1:45pm BP Systolic Sitting Right Arm 133 mmHg BP Diastolic Sitting Right Arm 77 mmHg Heart Rate 67 /min Height 66 inches 5'6" Weight 185.00 lb BMI (Body Mass Index) 29.9 kg/m2 BSA (Body Surface Area) 1.93 m2 [place] body weight in kilograms 59 kg Results Test Date Facility Test Result H/L Range Note Laboratory test 06/01/2019 [facility] Magnesium 1.9 mg/dL Normal 1.9-2.7 finding [phone] Basic Metabolic 06/01/2019 [facility] Sodium 139 mmol /L Normal 135-145 Panel [phone] Potassium 4.0 mmol/L Normal 3.5-5.0 Chloride 108 mmol/L Normal 101-111 Co2 Carbon Dioxide 23 mmol/L Normal 22-32 Anion Gap 8 mmol/L Normal 2-11 Glucose 126 mg/dL High 70-100 Blood Urea Nitrogen 13 mg/dL Normal 6-24 Creatinine 0.66 mg/dL Normal 0.51-0.95 BUN/Creatinine Ratio 19.7 Normal 8-20 Calcium 9.4 mg/dL Normal 8.6-10.3 Egfr Non- 97.7 >60 Egfr 118.3 >60 1 Rheumatoid 05/24/2019 [facility] Sedimentation 6 mm/hr Normal 2-40 2, 3 Panel ([facility]) [address] Rate [place], [place] [id number] [phone] Drugs Of 05/24/2019 [facility] Amphetamines Negative Abuse-Urine [address] (Urine) Screen 7 [place], [place] [id number] [phone] Barbiturates (Urine) Negative Benzodiazepines (Urine) Negative Cannabinoids (Urine) POSITIVE Abnormal Cocaine Metabolite (Urine) Negative Methadone (Urine) Negative Opiates (Urine) Negative Urine Cutoffs * 4 Ua RFX Micro & Culture 05/24/2019 [facility] Urine Color YELLOW Yellow II [address] [place] [address] [phone] Urine Clarity CLEAR Clear Urine Glucose - Dipstick NEGATIVE mg/dL Negative Urine Bilirubin - Dipstick NEGATIVE Negative Urine Ketone NEGATIVE mg/dL Negative Urine Specific Lyons <= 1.005 Low 1.010-1.030 Urine Blood TRACE Negative Urine PH 6.5 Normal 6.5-7.5 Urine Protein - Dipstick NEGATIVE mg/dL Negative Urine Urobilinogen - Dipstick 0.2 E.U./dL Normal 0.2-1.0 Urine Nitrite - Dipstick NEGATIVE Negative Urine Leuk Esterase NEGATIVE Negative Urine RBC 0-2 rbc/hpf 0-2 Urine WBC 0-2 wbc/hpf 0-7 Urine Epithelial Cells VERY FEW /lpf None Seen Urine Bacteria VERY FEW None Seen Source: URINE, CLEAN CAT <SEE NOTE> 5 CBC W/Automated 05/24/2019 [facility] White Blood 8.8 K/uL Normal 3.1-10.[address] [place] [address] [phone] Red Blood Count 4.39 M/uL Normal 3.90-5.40 Hemoglobin 14.4 gm/dL Normal 11.6-15.8 Hematocrit 43.4 % Normal 36.0-46.1 Mean Cell Volume 98.9 fl Normal 80.9-99.0 Mean Corpuscular HGB 32.8 pg High 25.9-32.7 Mean Corpuscular HGB Conc 33.2 g/dL Normal 30.8-34.3 Platelet Count 275 K/uL Normal 155-360 Red Cell Distri Width SD 47.2 fl High 36-47 Red Cell Distri Width %CV 13.0 % Normal 11.7-14.4 Mean Platelet Volume 10.8 fl Normal 8.9-12.4 Neut% 58.7 % Normal 40.4-72.8 Lymph % 33.3 % Normal 20.0-42.0 Davis % 6.3 % Normal 4.3-13.2 Eo% 0.9 % Normal 0.0-6.6 Bas% 0.7 % Normal 0.0-1.1 Immature Grans 0.1 % Normal 0.0-5.0 NRBC % 0.0 /100WBC < 10/ 100 WBC Neut# 5.14 K/uL Normal 1.8-7.0 Lymph # 2.92 K/uL Normal 1.0-4.0 Davis # 0.55 K/uL Normal 0.3-0.9 Eos # 0.08 K/uL Normal 0.0-0.5 Baso # 0.06 K/uL Normal 0.0-0.1 Immature Grans Absolute 0.01 K/uL NRBC # 0.00 K/uL Blood Culture 05/24/2019 [facility] Blood Culture NO GROWTH: FINAL [address] Aerobic <SEE NOTE> [place] [address] [phone] Blood Culture Anaerobic NO GROWTH: FINAL <SEE NOTE> 7 Laboratory 05/24/2019 [facility] Vitamin 25.2 ng/mL Low 30.0-100.0 8 test finding [address] D,25-[place] [address] [phone] Ehrlichia 05/24/2019 [facility] E.chaffeenis Negative Neg:<1:64 Antibody Panel [address] [place] [place] [address] [phone] E.chaffeenis IgM Titer Negative Neg:<1:20 9 Hge IgG Titer Negative Neg:<1:64 10 Hge IgM Titer Negative Neg:<1:20 11 Lyme Igg & Igm By 05/24/2019 [facility] Lyme AB Igg By Western . Western Blot [address] [place] [address] [phone] P93 AB Absent . P66 AB Absent . P58 AB Absent . P45 AB Absent . P41 AB Absent . P39 AB Absent . P30 AB Absent . P28 AB Absent . P23 AB Absent . P18 AB Present Abnormal . Lyme Igg WB Interpretation Negative . 12 Lyme AB Igm By Western Blot . P41 AB Absent . P39 AB Absent . P23 AB Absent . Lyme Igm WB Interpretation Negative . 13 Laboratory test 05/24/2019 [facility] Hepatitis A AB, Negative Negative finding [address] [place] [address] [phone] Lyme Total AB/Reflex To WB < 0.91 ISR 0.00-0.90 14 Babesia Microti 05/24/2019 [facility] Babesia <1:10 Neg:<1:10 15 Igg/M Abs,Ifa [address] microti,[place] [address] [phone] Babesia microti,IgM <1:10 Neg:<1:10 Ebv Acute 05/24/2019 [facility] Ebv AB <36.0 U/mL 0.0-35.9 [address] Vca,[place] [address] [phone] Ebv Early Antigen AB, IgG <9.0 U/mL 0.0-8.9 17 Ebv AB Vca,Igg 358.0 U/mL High 0.0-17.9 18 Ebv Nuclear Antigen AB, Igg >600.0 U/mL High 0.0-17.9 19 Ebv Interpretation (SEE NOTE) 20 Comprehensive Jeovany 05/24/2019 [facility] Anti-Dna <1 IU/mL 0-[address] [place] [address] (Uccehj) [phone] SM Antibody <0.2 AI 0.0-0.9 LEGEND MAKER Antibody <0.2 AI 0.0-0.9 Sjogrens Antibodies (Ssa) <0.2 AI 0.0-0.9 Antichromatin Antibodies <0.2 AI 0.0-0.9 Carmen-1 Antibody <0.2 AI 0.0-0.9 Sjogrens Antibodies (SSB) <0.2 AI 0.0-0.9 Centromere B Antibodies < 0.2 AI 0.0-0.9 Scleroderma Antibodies, SCL-70 <0.2 AI 0.0-0.9 See below: (SEE NOTE) 22 Laboratory test 05/24/2019 [facility] Antinuclear Negative . [address] Antibodies, [place] [address] [phone] Immunoglobulins 05/24/2019 [facility] Immunoglobulin 519 mg/dL Low 700- A/G/M, QN, Ser [address] G,Quant,Serum [address] [place], [place] [id number] [phone] Immunoglobulin A 214 mg/dL 87-352 Immunoglobulin M 44 mg/dL 26-217 Laboratory test 05/24/2019 [facility] Treponema Negative Negative finding [address] [place] [address] [place] [phone] Hepatitis B Surface Antibody Non Reactive . 24 Hepatitis C Antibody < 0.1 s/corat 0.0-0.9 25 HIV Screen 05/24/2019 [facility] HIV Screen Non Non 26 4TH Gen [address] 4th [place] [address] [facility] [phone] wRfx Laboratory 05/24/2019 [facility] Uric Acid 4.1 mg/dL Normal 2.6-6.0 test finding [address] [place] [address] [phone] CK 53 U/L Normal 26-192 Rheumatoid Factor Screen < 10.0 IU/mL Normal 0.0-15.0 C-Reactive Protein,Quant < 3.0 mg/L <3.0 1 Because ethnic data is not always readily available, this report includes an eGFR for both -Americans and non- Americans. The National Kidney Disease Education Program (NKDEP) does not endorse the use of the MDRD equation for patients that are not between the ages of 18 and 70, are , have extremes of body size, muscle mass, or nutritional status, or are non- or non-. According to the National Kidney Foundation, irrespective of diagnosis, the stage of the disease is based on the level of kidney function: Stage Description GFR(mL/min/1.73 m(2)) 1 Kidney damage with normal or decreased GFR 90 2 Kidney damage with mild decrease in GFR 60-89 3 Moderate decrease in GFR 30-59 4 Severe decrease in GFR 15-29 5 Kidney failure <15 (or dialysis) 2 R53.83 M25.50 D72.829 3 This result was obtained with an ESR method that is not based on the standard Westergren Method. When comparing results obtained from the traditional Westergren ESR and this method it is important to refer to the reference range for each method. Method: Capillary Photometry 4 URINE SPECIMENS ARE SCREENED AT THE LISTED CUTOFFS DRUG CLASS INITIAL TEST LEVEL Amphetamines 1000 ng/mL Barbiturates 200 ng/mL Benzodiazepines 200 ng/mL Cannabinoids 50 ng/mL Cocaine Metabolite 300 ng/mL Methadone 300 ng/mL Opiates 300 ng/mL Any PRESUMPTIVE POSITIVE findings are UNCONFIRMED. Confirmatory testing is suggested if findings are unexpected. Please contact laboratory if confirmatory testing is desired. SPECIMENS ARE HELD FOR 72 HOURS. 5 URINE, CLEAN CATCH 6 NO GROWTH: FINAL REPORT 7 NO GROWTH: FINAL REPORT 8 Vitamin D deficiency has been defined by the [place] of Medicine and an Endocrine Society practice guideline as a level of serum 25-OH vitamin D less than 20 ng/mL (1,2). The Endocrine Society went on to further define vitamin D insufficiency as a level between 21 and 29 ng/mL (2). 1. IOM ([place] of Medicine). 2010. Dietary reference intakes for calcium and D. [place]: The National Academies Press. 2. James MF, Lara REYNOLDS, Tyson SCOTT, et al. Evaluation, treatment, and prevention of vitamin D deficiency: an Endocrine Society clinical practice guideline. JCEM. 2010; 96(7):1911-30. Performed at: [address] [id number] Helicopter Engineer: Abigail Garcia MD, Phone: [phone] 9 IgG titers if 1:64 or greater indicate exposure or acute and convalescent samples showing a four-fold increase, and/or the presence of IgM indicate recent or current infection. 10 HGE IgG levels are detectable 7 to 10 days post infection and persist approximately one year. 11 Due to a reagent backorder, this test was performed using a different assay. The reference interval for this alternate assay is: Negative <1:64 Positive 1:64 or greater IgM levels usually rise 3 to 5 days post infection and fall to normal levels in approximately 30 to 60 days. Performed at: [address] [id number] Helicopter Engineer: Abigail Garcia MD, Phone: [phone] Performed at: [address] [id number] Helicopter Engineer: Seth Rushing MD, Phone: [phone] 12 Positive: 5 of the following Borrelia-specific bands: 18,23,28,30,39,41,45,58, 66, and 93. Negative: No bands or banding patterns which do not meet positive criteria. 13 Note: An equivocal or positive EIA result followed by a negative Western Blot result is considered NEGATIVE. An equivocal or positive EIA result followed by a positive Western Blot is considered POSITIVE by the CDC. Positive: 2 of the following bands: 23,39 or 41 Negative: No bands or banding patterns which do not meet positive criteria. Criteria for positivity are those recommended by CDC/ASTPHLD. p23=Osp C, y78=gcnuyejou Note: Sera from individuals with the following may cross react in the Lyme Western Blot assays: other spirochetal diseases (periodontal disease, leptospirosis, relapsing fever, yaws, and pinta); connective autoimmune (Rheumatoid Arthritis and Systemic Lupus Erythematosus and also individuals with Antinuclear Antibody); other infections ([place] Spotted Fever; Giuliana-Talbert Virus, and Cytomegalovirus). 14 Negative <0.91 Equivocal 0.91 - 1.09 Positive >1.09 15 This test was developed and its performance characteristics determined by [employer]. It has not been cleared or approved by the U.S. Food and Drug Administration. The FDA has determined that such clearance or approval is not necessary. This test is used for clinical purposes. It should not be regarded as investigational or research. 16 Negative <36.0 Equivocal 36.0 - 43.9 Positive >43.9 17 Negative < 9.0 Equivocal 9.0 - 10.9 Positive >10.9 18 Negative <18.0 Equivocal 18.0 - 21.9 Positive >21.9 19 Negative <18.0 Equivocal 18.0 - 21.9 Positive >21.9 20 EBV Interpretation Chart Interpretation EBV-IgM EA(D)-IgG VCA-IgG EBNA-IgG EBV Seronegative - - - - Early Phase + - - - Acute Primary + +or- + - Infection Convalescence/Past - +or- + + Infection Reactivated +or- +or- + + Infection + Antibody Present - Antibody Absent 21 Negative <5 Equivocal 5 - 9 Positive >9 22 Autoantibody Disease Association Condition Frequency --------- Antinuclear Antibody, SLE, mixed connective Direct (JEOVANY-D) tissue diseases --------- dsDNA SLE 40 - 60% --------- Chromatin Drug induced SLE 90% SLE 48 - 97% --------- SSA (Ro) SLE 25 - 35% Sjogren's Syndrome 40 - 70% Lupus 100% --------- SSB (La) SLE 10% Sjogren's Syndrome 30% --------- Sm (anti-Delgadillo) SLE 15 - 30% --------- LEGEND MAKER Mixed Connective Tissue Disease 95% (U1 nRNP, SLE 30 - 50% anti-ribonucleoprotein) Polymyositis and/or Dermatomyositis 20% --------- Scl-70 (antiDNA Scleroderma (diffuse) 20 - 35% topoisomerase) Crest 13% --------- Carmen-1 Polymyositis and/or Dermatomyositis 20 - 40% --------- Centromere B Scleroderma - Crest variant 80% 23 Negative <1:80 Borderline 1:80 Positive >1:80 24 Non Reactive: Inconsistent with immunity, less than 10 mIU/mL Reactive: Consistent with immunity, greater than 9.9 mIU/mL 25 INFCE Result Units: s/co ratio Negative: < 0.8 Indeterminate: 0.8 - 0.9 Positive: > 0.9 The CDC recommends that a positive HCV antibody result be followed up with a HCV Nucleic Acid Amplification test (611811). Performed at: [address] [id number] Helicopter Engineer: Abigail Garcia MD, Phone: [phone] Performed at: [address] [id number] Helicopter Engineer: Seth Rushing MD, Phone: [phone] Performed at: [address] [id number] Helicopter Engineer: Abigail Garcia MD, Phone: [phone] Procedures Date Code Description Status 08/05/2019 15954 EKG-Tracing And Report Completed 06/08/2019 23890 EKG-Tracing And Report Completed Medical Devices Description No Information Available Encounters Type Date Location Provider Dx Diagnosis Office Visit 08/05/2019 Cardiology Office Jazzy Recio I49.3 Ventricular premature 3:20p Julia MSN, depolarization [employer] R07.9 Chest pain, unspecified I10 Essential (primary) hypertension Office Visit 07/28/2019 1:30p Physical Medicine & Kelsey Stokes, R53.83 Other fatigue Infectious Disease M.Reema M25.50 Pain in unspecified joint D72.829 Elevated white blood cell count, unspecified F41.9 Anxiety disorder, unspecified R76.8 Other specified abnormal immunological findings in serum Office Visit 06/10/2019 1:30p Cardiology Office Reji Delgadillo, R25.1 MD Thanh unspecified I49.3 Ventricular premature depolarization Office Visit 06/08/2019 Cardiology Gustavo Wadsworth I49.3 Ventricular 8:20a Office Neisha Luis, FAC premature depolarization I10 Essential (primary) hypertension Office Visit 05/24/2019 2:00p Physical Medicine & Kelsey Stokes, R53.83 Other fatigue Infectious Disease M.DJason M25.50 Pain in unspecified joint D72.829 Elevated white blood cell count, unspecified R51 Headache C53.9 Malignant neoplasm of cervix uteri, unspecified E11.9 Type 2 diabetes mellitus without complications I10 Essential (primary) hypertension E03.9 Hypothyroidism, unspecified Assessments Date Code Description Provider 08/05/2019 I49.3 Ventricular premature depolarization Jazzy Recio , MSN, [facility] 08/05/2019 R07.9 Chest pain, unspecified Jazzy Recio, MSN, [facility] 08/05/2019 I10 Essential (primary) hypertension Jazzy Recio, MSN, [facility] 07/28/2019 R53.83 Other fatigue Kelsey Stokes M.D. 07/28/2019 M25.50 Pain in unspecified joint Kelsey Stokes M.D. 07/28/2019 D72.829 Elevated white blood cell count, Kelsey Stokes M.D. unspecified 07/28/2019 F41.9 Anxiety disorder, unspecified Kelsey Stokes M.D. 07/28/2019 R76.8 Other specified abnormal Kelsey Stokes M.D. immunological findings in serum 06/18/2019 R00.2 Palpitations Reji Delgadillo MD 06/18/2019 I49.3 Ventricular premature depolarization Reji Delgadillo MD 06/18/2019 F41.9 Anxiety disorder, unspecified Reji Delgadillo MD 06/18/2019 F17.210 Nicotine dependence, cigarettes, Reji Delgadillo MD uncomplicated 06/10/2019 R25.1 Tremor Reji Delgadillo MD 06/10/2019 I49.3 Ventricular premature depolarization Reji Delgaidllo MD 06/08/2019 I49.3 Ventricular premature depolarization Gustavo Wadsworth M.D., [facility] 06/08/2019 I10 Essential (primary) hypertension Gustavo Wadsworth M.D., [facility] 05/24/2019 R53.83 Other fatigue Kelsey Stokes M.D. 05/24/2019 M25.50 Pain in unspecified joint Kelsey Stokes M.D. 05/24/2019 D72.829 Elevated white blood cell count, Kelsey Stokes M.D. unspecified 05/24/2019 R51 Headache Kelsey Stokes M.D. 05/24/2019 C53.9 Malignant neoplasm of cervix uteri, Kelsey Stokes M.D. unspecified 05/24/2019 E11.9 Type 2 diabetes mellitus without Kelsey Stokes M.D. complications 05/24/2019 I10 Essential (primary) hypertension Kelsey Stokes M.D. 05/24/2019 E03.9 Hypothyroidism, unspecified Kelsey Stokes M.D. 05/18/2019 R10.9 Unspecified abdominal pain Michelle Posada MD 05/18/2019 R63.0 Anorexia Michelle Posada MD 05/18/2019 R79.89 Other specified abnormal findings of Michelle Posada MD blood chemistry 05/18/2019 R19.4 Change in bowel habit Michelle Posada MD Plan of Treatment Future Appointment(s):09/09/2019 7:40 am - Jazzy Recio, SOLEDAD, CHIE[employer] ENGINEER [employer]ODUCTION at Cardiology [id number]/31/2019 11:00 am - Franca Sanon DO at Oncology [id number] - Jazzy Recio, SOLEDAD, FNPI49.3 Ventricular premature depolarizationComments:No asokgmsW05.9 Chest pain, unspecifiedNew Orders: Exercise Stress Test, Ordered: 08/05/19Comments:We will order a stress test to evaluate the patient's ischemic potential.I10 Essential (primary) hypertensionNew Medication:Losartan Potassium 25 mg - 1 by mouth every dayNew Labs:Basic Metabolic Panel, Ordered: 08/05/19Magnesium, Ordered: Comments:Start losartan and get BMP in one weekAllFollow up:After study completed. Functional Status Functional Condition Comment Date Status Independent with all ADL's Active Mental Status Description No Information Available Referrals Refer to Reason for Referral Status Appt Date Talia Serrano MD Sent [address] [place] [address] [phone] Christopher Pineda MD discuss possible PVC ablation / management Scheduled MICHAELA per Dr Delgadillo, please. [address] [facility] [address], [address] [place], [place] [address] [phone] Franca Sanon DO Patient Notified 08/31/[address] [place] [address] [phone] Beck Colin MD Patient Notified 08/10/2019 [facility] [place] [address] [place] [address] [phone] Sammy Desai M.D. Closed 06/15/2019 [facility] [address] [place] [address] [phone]
--- OUTSIDE RECORDS SUMMARY | 2019-08-24 08:46 | XMS REPORT | Continuity of Care Document ---
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 Onset: 07/28/2019 Tobacco user Kelsey Stokes M.D. Onset: 07/28/2019 Premature beats Gustavo Wadsworth M.D., Onset: 06/08/2019 [facility] Hypothyroidism Kelsey Stokes M.D. Onset: 05/24/2019 [...] 05/24/2019 Palpitations Gustavo Wadsworth M.D., Onset: 12/16/2018 [facility] Social History Type Date Description Comments [...] Recio 08/05/2019 25mg day Julia, MSN, Tablets [employer] Xanax 1-2 tab by mouth Unknown 0.25mg [...] 06/10/2019 - 50mg morning and 25 M.Neisha, [facility] 07/28/2019 Tablets mg every night Flecainide Acetate take one tablet 60tabs R25.1 Gustavo Wadsworth 2018 - by mouth twice a Neisha Luis, [facility] Unknown 50mg Tablets day Verapamil HCL ER 1 by mouth every 90caps I49.3 Gustavo Wadsworth 2018 - day Neisha Luis, [facility] 06/10/2019 180mg Caps ER 24HR Potassium Chloride 1 by mouth twice 180tabs Gustavo Wadsworth 06/08/2019 - Sharonda ER a day Neisha Luis, [facility] 07/28/2019 20Meq Tablets ER Verapamil HCL ER 1 by mouth every 90caps Gustavo Wadsworth 06/04/2019 - day Neisha Lius, [facility] Unknown 180mg Caps ER 24HR Immunizations Description No Information Available Vital Signs Date Vital Result Comment 08/05/2019 3:41pm BP Systolic Sitting Left Arm 145 mmHg BP Diastolic Sitting Left Arm 82 mmHg Heart Rate 76 /min Respiratory Rate 18 /min Height 66 inches 5'6" Weight 186.00 lb BMI (Body Mass Index) 30.0 kg/m2 BSA (Body Surface Area) 1.94 m2 [place] body weight in kilograms 59 kg O2 % BldC Oximetry 98 % Ejection Fraction 60% 07/28/2019 1:45pm BP Systolic Sitting Right Arm 133 mmHg BP Diastolic Sitting Right Arm 77 mmHg Heart Rate 67 /min Height 66 inches 5'6" Weight 185.00 lb BMI (Body Mass Index) 29.9 kg/m2 BSA (Body Surface Area) 1.93 m2 [place] body weight in kilograms 59 kg Results Test Date Facility Test Result H/L Range Note Laboratory test 06/01/2019 [facility] Magnesium 1.9 mg/dL Normal 1.9-2.7 finding [phone] Basic Metabolic 06/01/2019 [facility] Sodium 139 mmol /L Normal 135-145 Panel [phone] Potassium 4.0 mmol/L Normal 3.5-5.0 Chloride 108 mmol/L Normal 101-111 Co2 Carbon Dioxide 23 mmol/L Normal 22-32 Anion Gap 8 mmol/L Normal 2-11 Glucose 126 mg/dL High 70-100 Blood Urea Nitrogen 13 mg/dL Normal 6-24 Creatinine 0.66 mg/dL Normal 0.51-0.95 BUN/Creatinine Ratio 19.7 Normal 8-20 Calcium 9.4 mg/dL Normal 8.6-10.3 Egfr Non- 97.7 >60 Egfr 118.3 >60 1 Laboratory test 05/24/2019 [facility] Uric Acid 4.1 mg/dL Normal 2.6-6.0 [address] [place], [place] [id number] [phone] CK 53 U/L Normal 26-192 Rheumatoid Factor Screen < 10.0 IU/mL Normal 0.0-15.0 C-Reactive Protein,Quant < 3.0 mg/L <3.0 Rheumatoid 05/24/2019 [facility] Sedimentation 6 mm/hr Normal 2-40 3 Panel ([facility]) [address] Rate [place], [place] [id number] [phone] Drugs Of 05/24/2019 [facility] Amphetamines Negative Abuse-Urine [address] (Urine) Screen 7 [place], [place] [id number] [phone] Barbiturates (Urine) Negative Benzodiazepines (Urine) Negative Cannabinoids (Urine) POSITIVE Abnormal Cocaine Metabolite (Urine) Negative Methadone (Urine) Negative Opiates (Urine) Negative Urine Cutoffs * 4 Ua RFX Micro & Culture 05/24/2019 [facility] Urine Color YELLOW Yellow II [address] [place] [address] [phone] Urine Clarity CLEAR Clear Urine Glucose - Dipstick NEGATIVE mg/dL Negative Urine Bilirubin - Dipstick NEGATIVE Negative Urine Ketone NEGATIVE mg/dL Negative Urine Specific [place] <= 1.005 Low 1.010-1.030 Urine Blood TRACE [...] CAT <SEE NOTE> 5 CBC W/Automated 05/24/2019 [facility] White Blood 8.8 K/uL Normal 3.1-10.[address] [place] [place] [address] [phone] Red Blood Count 4.39 M/uL Normal 3.90-5.40 [...] 40.4-72.8 Lymph % 33.3 % Normal 20.0-42.0 [place] % 6.3 % Normal 4.3-13.2 Eo% 0.9 % Normal 0.0-6.6 Bas% 0.7 % Normal 0.0-1.1 Immature Grans 0.1 % Normal 0.0-5.0 NRBC % 0.0 /100WBC < 10/ 100 WBC Neut# 5.14 K/uL Normal 1.8-7.0 Lymph # 2.92 K/uL Normal 1.0-4.0 [place] # 0.55 K/uL Normal 0.3-0.9 Eos # 0.08 K/uL Normal 0.0-0.5 Baso # 0.06 K/uL Normal 0.0-0.1 Immature Grans Absolute 0.01 K/uL NRBC # 0.00 K/uL Blood Culture 05/24/2019 [facility] Blood Culture NO GROWTH: FINAL [address] Aerobic <SEE NOTE> [place] [address] [phone] Blood Culture Anaerobic NO GROWTH: FINAL <SEE NOTE> 7 Laboratory 05/24/2019 [facility] Vitamin 25.2 ng/mL Low 30.0-100.0 8 test finding [address] D,25-[place] [address] [phone] Ehrlichia 05/24/2019 [facility] E.chaffeenis Negative Neg:<1:64 Antibody Panel [address] [place] [place] [address] [phone] E.chaffeenis IgM Titer Negative Neg:<1:20 9 Hge IgG Titer Negative Neg:<1:64 10 Hge IgM Titer Negative Neg:<1:20 11 Lyme Igg & Igm By 05/24/2019 [facility] Lyme AB Igg By Western . Western Blot [address] [place] [place] [address] [phone] P93 AB Absent . P66 AB Absent [...] Interpretation Negative . 13 Laboratory test 05/24/2019 [facility] Hepatitis A AB, Negative Negative finding [address] [place] [address] [phone] Lyme Total AB/Reflex To WB < 0.91 ISR 0.00-0.90 14 Babesia Microti 05/24/2019 [facility] Babesia <1:10 Neg:<1:10 15 Igg/M Abs,Ifa [address] microti,[place] [address] [phone] Babesia microti,IgM <1:10 Neg:<1:10 Ebv Acute 05/24/2019 [facility] Ebv AB <36.0 U/mL 0.0-35.9 [address] Vca,[place] [address] [phone] Ebv Early Antigen AB, IgG <9.0 U/mL 0.0-8.9 17 Ebv AB Vca,Igg 358.0 U/mL High 0.0-17.9 18 Ebv Nuclear Antigen AB, Igg >600.0 U/mL High 0.0-17.9 19 Ebv Interpretation (SEE NOTE) 20 Comprehensive Jeovany 05/24/2019 [facility] Anti-Dna <1 IU/mL 0-[address] [place] [address] (Fyvkyd) [phone] SM Antibody <0.2 AI 0.0-0.9 WARP SPINNER Antibody <0.2 AI 0.0-0.9 Sjogrens Antibodies (Ssa) <0.2 AI 0.0-0.9 Antichromatin Antibodies <0.2 AI 0.0-0.9 Carmen-1 Antibody <0.2 AI 0.0-0.9 Sjogrens Antibodies (SSB) <0.2 AI 0.0-0.9 Centromere B Antibodies < 0.2 AI 0.0-0.9 Scleroderma Antibodies, SCL-70 <0.2 AI 0.0-0.9 See below: (SEE NOTE) 22 Laboratory test 05/24/2019 [facility] Antinuclear Negative . [address] Antibodies, [place] [address] [phone] Immunoglobulins 05/24/2019 [facility] Immunoglobulin 519 mg/dL Low 700- A/G/M, QN, Ser [address] G,Quant,Serum [address] [place] [address] [phone] Immunoglobulin A 214 mg/dL 87-352 Immunoglobulin M 44 mg/dL 26-217 Laboratory test 05/24/2019 [facility] Treponema Negative Negative finding [address] [place] [address] [place] [phone] Hepatitis B Surface Antibody Non Reactive . 24 Hepatitis C Antibody < 0.1 s/corat 0.0-0.9 25 HIV Screen 05/24/2019 [facility] HIV Screen 4th Non Reactive Non Reactive 26 [address] Generation wRfx Reflex [place] [id number] [phone] 1 Because ethnic data is not always [...] D deficiency has been defined by the [place] of [employer] and an Endocrine Society practice guideline as a level of serum 25-OH vitamin D less than 20 ng/mL (1,2). The Endocrine Society went on to further define vitamin D insufficiency as a level between 21 and 29 ng/mL (2). 1. IOM ([place] of [employer]). 2010. Dietary reference intakes for calcium and D. [place]: The National Academies Press. 2. James MF, Lara REYNOLDS, Tyson SCOTT, et al. Evaluation, treatment, and prevention of vitamin D deficiency: an Endocrine Society clinical practice guideline. JCEM. 2010; 96(7):1911-30. Performed at: [address] [id number] Dope Maintenance Worker: Abigail Garcia MD, Phone: [phone] 9 IgG titers if 1:64 or greater [...] approximately 30 to 60 days. Performed at: [address] [id number] Dope Maintenance Worker: Abigail Garcia MD, Phone: [phone] Performed at: [address] [id number] Dope Maintenance Worker: Seth Rushing MD, Phone: [phone] 12 Positive: 5 of the following Borrelia-specific [...] are those recommended by CDC/ASTPHLD. p23=Osp C, t10=osbwqumgn Note: Sera from individuals with the following may cross react in the Lyme Western Blot assays: other spirochetal diseases (periodontal disease, leptospirosis, relapsing fever, yaws, and pinta); connective autoimmune (Rheumatoid Arthritis and Systemic Lupus Erythematosus and also individuals with Antinuclear Antibody); other infections (Veyo Spotted Fever; Giuliana-Talbert Virus, and Cytomegalovirus). 14 Negative <0.91 Equivocal 0.91 - 1.09 Positive >1.09 15 This test was developed and its performance characteristics determined by [facility]. It has not been cleared or approved [...] Sm (anti-Delgadillo) SLE 15 - 30% --------- WARP SPINNER Mixed Connective Tissue Disease 95% (U1 nRNP, [...] with a HCV Nucleic Acid Amplification test (831154). Performed at: [address] [id number] Dope Maintenance Worker: Abigail Garcia MD, Phone: [phone] Performed at: [address] [id number] Dope Maintenance Worker: Seth Rushing MD, Phone: [phone] Performed at: [address] [id number] Dope Maintenance Worker: Abigail Garcia MD, Phone: [phone] Procedures Date Code Description Status 08/05/2019 08053 EKG-Tracing And Report Completed 06/08/2019 98753 EKG-Tracing And Report Completed Medical Devices Description No Information Available Encounters Type Date Location Provider Dx Diagnosis Office Visit 08/05/2019 Cardiology Office Jazzy Recio I49.3 Ventricular premature 3:20p Julia, MSN, depolarization [employer] R07.9 Chest pain, unspecified I10 Essential (primary) [...] Wadsworth I49.3 Ventricular 8:20a Office Neisha Luis, [facility] premature depolarization I10 Essential (primary) hypertension Office [...] Ventricular premature depolarization Jazzy Recio , MSN, [facility] 08/05/2019 R07.9 Chest pain, unspecified Jazzy Recio, MSN, [facility] 08/05/2019 I10 Essential (primary) hypertension Jazzy Recio, MSN, [facility] 07/28/2019 R53.83 Other fatigue Kelsey Stokes [...] MD 06/10/2019 I49.3 Ventricular premature depolarization Reji Delgadillo MD 06/08/2019 I49.3 Ventricular premature depolarization Gustavo Wadsworth M.D., [facility] 06/08/2019 I10 Essential (primary) hypertension Gustavo Wadsworth M.D., [facility] 05/24/2019 R53.83 Other fatigue Kelsey Stokes [...] Appointment(s):09/09/2019 7:40 am - Jazzy Recio, [place], [employer] at Cardiology Ceptay3008/31/2019 11:00 am - Franca Sanon DO at Oncology [id number] - Jazzy Recio, [place], FNPI49.3 Ventricular premature depolarizationComments:No ozupjqyC30.9 Chest pain, unspecifiedNew Orders: Exercise Stress Test, [...] Status Appt Date Talia Serrano MD Sent [address] [place] [address] [phone] Christopher Pineda MD discuss possible PVC ablation / management Scheduled MICHAELA per Dr Delgadillo, please. [phone] [facility] [address], [address] [place], [place] [address] [phone] Franca Sanon DO Patient Notified 08/31/2019 [address] [place] [address] [phone] Beck Colin MD Patient Notified 08/10/2019 [facility] [place] [address] [place], [place] [address] [phone] Sammy Desai M.D. Closed 06/15/2019 [facility] [address] [place] [address] [phone]
--- OUTSIDE RECORDS SUMMARY | 2019-08-24 08:47 | XMS REPORT | Continuity of Care Document ---
:1975 External Reference #:[id number] Author Name Kelsey Stokes M.D. 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 Onset: 07/28/2019 Tobacco user Kelsey Stokes M.D. Onset: 07/28/2019 Premature beats Gustavo Wadsworth M.D., Onset: 06/08/2019 [facility] Hypothyroidism Kelsey Stokes M.D. Onset: 05/24/2019 [...] 05/24/2019 Palpitations Gustavo Wadsworth M.D., Onset: 12/16/2018 [facility] Social History Type Date Description Comments Sex Unknown Tobacco Use Start: Unknown current cigarette smoker ETOH Use Rarely consumes alcohol Recreational Drug Use Marijuana Medical card Tobacco Use Start: Unknown Patient is a current smoker, smokes every day Smoking Status Reviewed: 07/28/19 Patient is a current smoker, smokes every day Allergies, Adverse Reactions, Alerts Active Allergies Reaction Severity Comments Date Penicillin 12/16/2018 Amoxicillin 06/24/2019 Levaquin 12/16/2018 Erythromycin Hives 05/24/2019 Avelox Hives, Nausea 05/24/2019 Bananas 06/07/2019 Medications Active Medications SIG Qnty Indications Ordering Provider Date Xanax 1-2 tab by mouth Unknown 0.25mg [...] 06/10/2019 - 50mg morning and 25 M.Neisha, [facility] 07/28/2019 Tablets mg every night Flecainide Acetate take one tablet 60tabs R25.1 Gustavo Wadsworth 2018 - by mouth twice a MNeisha Gomez, [facility] Unknown 50mg Tablets day Verapamil HCL ER 1 by mouth every 90caps I49.3 Gustavo Wadsworth 2018 - day Neisha Luis, [facility] 06/10/2019 180mg Caps ER 24HR Potassium Chloride 1 by mouth twice 180tabs Gustavo Wadsworth 06/08/2019 - Sharonda ER a day Neisha Luis, [facility] 07/28/2019 20Meq Tablets ER Verapamil HCL ER 1 by mouth every 90caps Gustavo Wadsworth 06/04/2019 - day Neisha Luis, [facility] Unknown 180mg Caps ER 24HR Immunizations Description No Information Available Vital Signs Date Vital Result Comment 07/28/2019 1:45pm BP Systolic Sitting Right Arm 133 mmHg BP Diastolic Sitting Right Arm 77 mmHg Heart Rate 67 /min Height 66 inches 5'6" Weight 185.00 lb BMI (Body Mass Index) 29.9 kg/m2 BSA (Body Surface Area) 1.93 m2 [place] body weight in kilograms 59 kg 06/10/2019 1:45pm BP Systolic Sitting Left Arm 135 mmHg BP Diastolic Sitting Left Arm 72 mmHg Heart Rate 70 /min Respiratory Rate 18 /min Height 66 inches 5'6" Weight 185.00 lb BMI (Body Mass Index) 29.9 kg/m2 BSA (Body Surface Area) 1.93 m2 [place] body weight in kilograms 59 kg O2 % BldC Oximetry 98 % Results Test Date Facility Test Result H/L Range Note Laboratory test 06/01/2019 [facility] Magnesium 1.9 mg/dL Normal 1.9-2.7 finding [phone] Basic Metabolic 06/01/2019 [facility] Sodium 139 mmol /L Normal 135-145 Panel [phone] Potassium 4.0 mmol/L Normal 3.5-5.0 Chloride 108 [...] 3 Panel ([facility]) [address] Rate [place], [place] [id number] [phone] Drugs Of 05/24/2019 [facility] Amphetamines Negative Abuse-Urine [address] (Urine) Screen 7 [place], [place] [id number] [phone] Barbiturates (Urine) Negative Benzodiazepines (Urine) Negative Cannabinoids (Urine) POSITIVE Abnormal Cocaine Metabolite (Urine) Negative Methadone (Urine) Negative Opiates (Urine) Negative Urine Cutoffs * 4 Ua RFX Micro & Culture 05/24/2019 [facility] Urine Color YELLOW Yellow II [address] [place], [place] [id number] [phone] Urine Clarity CLEAR Clear Urine Glucose - Dipstick NEGATIVE mg/dL Negative Urine Bilirubin - Dipstick NEGATIVE Negative Urine Ketone NEGATIVE mg/dL Negative Urine Specific [place] <= 1.005 Low 1.010-1.030 Urine Blood TRACE [...] CAT <SEE NOTE> 5 CBC W/Automated 05/24/2019 [facility] White Blood 8.8 K/uL Normal 3.1-10.[address] [place] [address] [phone] Red Blood Count 4.39 M/uL Normal 3.90-5.40 [...] 40.4-72.8 Lymph % 33.3 % Normal 20.0-42.0 Robertson % 6.3 % Normal 4.3-13.2 Eo% 0.9 % Normal 0.0-6.6 Bas% 0.7 % Normal 0.0-1.1 Immature Grans 0.1 % Normal 0.0-5.0 NRBC % 0.0 /100WBC < 10/ 100 WBC Neut# 5.14 K/uL Normal 1.8-7.0 Lymph # 2.92 K/uL Normal 1.0-4.0 Robertson # 0.55 K/uL Normal 0.3-0.9 Eos # 0.08 K/uL Normal 0.0-0.5 Baso # 0.06 K/uL Normal 0.0-0.1 Immature Grans Absolute 0.01 K/uL NRBC # 0.00 K/uL Blood Culture 05/24/2019 [facility] Blood Culture NO GROWTH: FINAL [address] Aerobic <SEE NOTE> [place] [address] [phone] Blood Culture Anaerobic NO GROWTH: FINAL <SEE NOTE> 7 Laboratory 05/24/2019 [facility] Vitamin 25.2 ng/mL Low 30.0-100.0 8 test finding [address] D,25-[place] [address] [phone] Ehrlichia 05/24/2019 [facility] E.chaffeenis Negative Neg:<1:64 Antibody Panel [address] [place] [place] [address] [phone] E.chaffeenis IgM Titer Negative Neg:<1:20 9 Hge IgG Titer Negative Neg:<1:64 10 Hge IgM Titer Negative Neg:<1:20 11 Lyme Igg & Igm By 05/24/2019 [facility] Lyme AB Igg By Western . Western Blot [address] [place] [address] [phone] P93 AB Absent . P66 AB Absent [...] Interpretation Negative . 13 Laboratory test 05/24/2019 [facility] Hepatitis A AB, Negative Negative finding [address] [place] [address] [phone] Lyme Total AB/Reflex To WB < 0.91 ISR 0.00-0.90 14 Babesia Microti 05/24/2019 [facility] Babesia <1:10 Neg:<1:10 15 Igg/M Abs,Ifa [address] microti,[place] [address] [phone] Babesia microti,IgM <1:10 Neg:<1:10 Ebv Acute 05/24/2019 [facility] Ebv AB <36.0 U/mL 0.0-35.[address] Vca,[place] [address] [phone] Ebv Early Antigen AB, IgG <9.0 U/mL 0.0-8.9 17 Ebv AB Vca,Igg 358.0 U/mL High 0.0-17.9 18 Ebv Nuclear Antigen AB, Igg >600.0 U/mL High 0.0-17.9 19 Ebv Interpretation (SEE NOTE) 20 Comprehensive Jeovany 05/24/2019 [facility] Anti-Dna <1 IU/mL 0-[address] [place] [address] (Alhqal) [phone] SM Antibody <0.2 AI 0.0-0.9 FURNACE ERECTOR Antibody <0.2 AI 0.0-0.9 Sjogrens Antibodies (Ssa) <0.2 AI 0.0-0.9 Antichromatin Antibodies <0.2 AI 0.0-0.9 Carmen-1 Antibody <0.2 AI 0.0-0.9 Sjogrens Antibodies (SSB) <0.2 AI 0.0-0.9 Centromere B Antibodies < 0.2 AI 0.0-0.9 Scleroderma Antibodies, SCL-70 <0.2 AI 0.0-0.9 See below: (SEE NOTE) 22 Laboratory test 05/24/2019 [facility] Antinuclear Negative . [address] Antibodies, Ifa [place], [place] [address] [phone] Immunoglobulins 05/24/2019 [facility] Immunoglobulin 519 mg/dL Low 700- A/G/M, QN, Ser [address] G,Quant,Serum [address] [place], [place] [address] [phone] Immunoglobulin A 214 mg/dL 87-352 Immunoglobulin M 44 mg/dL 26-217 Laboratory test 05/24/2019 [facility] Treponema Negative Negative finding [address] [place] [address] [place] [phone] Hepatitis B Surface Antibody Non Reactive . 24 Hepatitis C Antibody < 0.1 s/corat 0.0-0.9 25 HIV Screen 05/24/2019 [facility] HIV Screen Non Non 26 4TH Gen [address] 4th [place] [address] [facility] [phone] wRfx Laboratory 05/24/2019 [facility] Uric Acid 4.1 mg/dL Normal 2.6-6.0 test finding [address] [place] [address] [phone] CK 53 U/L Normal 26-192 Rheumatoid Factor [...] D deficiency has been defined by the [place] of [employer] and an Endocrine Society practice guideline as a level of serum 25-OH vitamin D less than 20 ng/mL (1,2). The Endocrine Society went on to further define vitamin D insufficiency as a level between 21 and 29 ng/mL (2). 1. IOM ([place] of [employer]). 2010. Dietary reference intakes for calcium and D. [place]: The National Academies Press. 2. James MF, Lara [place], Tyson [place], et al. Evaluation, treatment, and prevention of vitamin D deficiency: an Endocrine Society clinical practice guideline. JCEM. 2010; 96(6):1911-30. Performed at: [address] [id number] Superintendent Terminal: Abigail Garcia MD, Phone: [phone] IgG titers if 1:64 or greater [...] approximately 30 to 60 days. Performed at: [address] [id number] Superintendent Terminal: Abigail Garcia MD, Phone: [phone] Performed at: [address] [id number] Superintendent Terminal: Seth Rushing MD, Phone: [phone] Positive: 5 of the following Borrelia-specific [...] are those recommended by CDC/ASTPHLD. p23=Osp C, w66=wbdsqqkjt Note: Sera from individuals with the following may cross react in the Lyme Western Blot assays: other spirochetal diseases (periodontal disease, leptospirosis, relapsing fever, yaws, and pinta); connective autoimmune (Rheumatoid Arthritis and Systemic Lupus Erythematosus and also individuals with Antinuclear Antibody); other infections ([place] Spotted Fever; Giuliana-Talbert Virus, and Cytomegalovirus). 14 Negative <0.91 Equivocal 0.91 - 1.09 Positive >1.09 15 This test was developed and its performance characteristics determined by [employer]. It has not been cleared or approved [...] Sm (anti-Delgadillo) SLE 15 - 30% --------- FURNACE ERECTOR Mixed Connective Tissue Disease 95% (U1 nRNP, [...] with a HCV Nucleic Acid Amplification test (802260). Performed at: [address] [id number] Superintendent Terminal: Abigail Garcia MD, Phone: [phone] Performed at: [address] [id number] Superintendent Terminal: Seth Rushing MD, Phone: [phone] Performed at: [address] [id number] Superintendent Terminal: Abigail Garcia MD, Phone: [phone] Procedures Date Code Description Status 06/08/2019 29387 EKG-Tracing And Report Completed Medical Devices Description No Information Available Encounters Type Date Location Provider Dx Diagnosis Office Visit 07/28/2019 Physical Medicine & Kelsey Stokes M.D. R53.83 Other fatigue 1:30p Infectious Disease M25.50 Pain in unspecified joint D72.829 Elevated white blood cell count, unspecified F41.9 Anxiety disorder, unspecified R76.8 Other specified abnormal immunological findings in serum Office Visit 06/10/2019 1:30p Cardiology Office Reji Delgadillo, R25.1 MD Thanh unspecified I49.3 Ventricular premature depolarization Office Visit 06/08/2019 Cardiology Gustavo Wadsworth I49.3 Ventricular 8:20a Jon Luis M.D., [facility] premature depolarization I10 Essential (primary) hypertension Office Visit 05/24/2019 2:00p Physical Medicine & Kelsey Stokes, R53.83 Other fatigue Infectious Disease M.DJason M25.50 Pain in unspecified joint D72.829 Elevated white blood cell count, unspecified R51 Headache C53.9 Malignant neoplasm of cervix uteri, unspecified E11.9 Type 2 diabetes mellitus without complications I10 Essential (primary) hypertension E03.9 Hypothyroidism, unspecified Assessments Date Code Description Provider 07/28/2019 R53.83 Other fatigue Kelsey Stokes M.D. [...] I49.3 Ventricular premature depolarization Gustavo Wadsworth M.D., [facility] 06/08/2019 I10 Essential (primary) hypertension Gustavo Wadsworth M.D., [facility] 05/24/2019 R53.83 Other fatigue Kelsey Stokes [...] Michelle Posada MD Plan of Treatment Future Appointment(s):08/31/2019 11:00 am - Franca Sanon DO at Oncology Cqaplm0807/28/2019 - Kelsey Stokes M.D.R53.83 Other fatigueFollow up:prnM25.50 Pain in unspecified tnjmyP74.829 Elevated white blood cell count, kaepnjzwtmcY29.9 Anxiety disorder, qhagspvwqdfD67.8 Other specified abnormal immunological findings in serumReferral:No Doctor Selected Functional Status Functional Condition Comment Date Status Independent with all ADL's Active Mental Status Description No Information Available Referrals Refer to Reason for Referral Status Appt Date Created Christopher Pineda MD discuss possible PVC ablation / management Scheduled MICHAELA per Dr Delgadillo, tricia. [address] [facility] [address], [address] [place], [place] [address] [phone] Franca Sanon DO Patient Notified 08/31/2019 [facility] [address] [place], [place] [address] [phone] Beck Colin MD Patient Notified 08/10/2019 [facility] [address] [place] [address] [phone] Sammy Desai M.D. [facility] [address] [place] [address] [phone]
[2019-08-24 09:01] VITALS: BP 145/81
--- NOTE | 2019-08-24 09:17 | UC ---
Respiratory Complaint HPI - HPI Summary HPI Summary: cough x 5 days, cough is dry, worse with exertion and deep breathing better with rest, and albuterol + wheezing / chest tightness, SOB , no fever, no chills, + cold symptoms has been taking Zpak - History of Current Complaint Chief Complaint: UCRespiratory Stated Complaint: HISTORY OF ASTHMA Time Seen by Provider: 08/24/19 09:00 Hx Obtained From: Patient Hx Last Menstrual Period: 07/31/19 ?: No Onset/Duration: Gradual Onset, Lasting Days - 5, Still Present Timing: Constant Severity Initially: Moderate Severity Currently: Moderate Pain Intensity: 0 Character: Cough: Nonproductive Aggravating Factors: Exertion, Deep Breaths Alleviating Factors: Bronchodilator Associated Signs And Symptoms: Positive: Dyspnea, Wheezing, URI, Nasal Congestion. Negative: Fever, Chills, Hemoptysis, Dizziness, Calf Pain, Calf Swelling - Allergies/Home Medications Allergies/Adverse Reactions: Allergies Allergy/AdvReac Type Severity Reaction Status Date / Time erythromycin base Allergy Rash Verified 08/24/19 08:47 levofloxacin [From Levaquin] Allergy Rash Verified 08/24/19 08:47 Penicillins Allergy Rash Verified 08/24/19 08:47 Quinolones Allergy Rash Verified 08/24/19 08:47 moxifloxacin [From Avelox] AdvReac Vomiting Verified 08/24/19 08:47 Home Medications: Home Medications Azithromycin TAB* [Zithromax TAB (Z-JOLENE) 250 mg #6 tabs] 250 mg PO DAILY [History Confirmed 08/24/19] Fluticasone Furoate [Arnuity Ellipta] 100 mcg IH 08/24/19 [History] Losartan TAB* [Cozaar TAB*] 25 mg PO DAILY 08/24/19 [History Confirmed 08/24/19] Ondansetron ODT TAB* [Zofran 4 MG Odt TAB*] 4 mg PO Q6H PRN 08/24/19 [History Confirmed 08/24/19] PMH/Surg Hx/FS Hx/Imm Hx Endocrine History: Hyperthyroidism - Surgical History Surgical History: Yes Surgery Procedure, Year, and Place: Cholecystectomy, LEEP x 3, tubal ligation , thyroidectomy,CYST REMOVAL OVARY - Family History Known Family History: Positive: Cardiac Disease, Hypertension, Diabetes, Renal Disease - mother- multiple kindey problems, did not know what - Social History Alcohol Use: Rare Substance Use Type: Marijuana Substance Use Comment - Amount & Last Used: Medical Marijuana Smoking Status (MU): Light Every Day Tobacco Smoker Type: Cigarettes Amount Used/How Often: 2 CIGS A DAY Length of Time of Smoking/Using Tobacco: On and Off Since Age 28 Have You Smoked in the Last Year: Yes Household Exposure Type: Cigarettes - Immunization History Most Recent Influenza Vaccination: 5 yrs ago Most Recent Tetanus Shot: 5yrs ago Most Recent Pneumonia Vaccination: none Vaccination Up to Date: Yes Review of Systems All Other Systems Reviewed And Are Negative: Yes Constitutional: Positive: Negative Skin: Positive: Negative Eyes: Positive: Negative ENT: Positive: Nasal Discharge, Sinus Congestion Respiratory: Positive: Shortness Of Breath, Cough Cardiovascular: Positive: Negative. Negative: Chest Pain Is Patient Immunocompromised?: No Physical Exam Triage Information Reviewed: Yes Appearance: Well-Appearing, No Pain Distress, Well-Nourished Vital Signs: Initial Vital Signs Temp 98.1 F 08/24/19 08:54 Pulse 62 08/24/19 08:54 Resp 18 08/24/19 08:54 BP 145/81 08/24/19 08:54 Pulse Ox 100 08/24/19 08:54 Vital Signs Reviewed: Yes Eye Exam: Normal Eyes: Positive: Conjunctiva Clear ENT: Positive: Normal ENT inspection, Hearing grossly normal, Pharynx normal, Nasal congestion, TMs normal. Negative: Nasal drainage Neck: Positive: Supple, Nontender, No Lymphadenopathy Respiratory: Positive: Chest non-tender, Lungs clear, Wheezing Cardiovascular: Positive: RRR, No Murmur, Pulses Normal Respiratory Course/Dx - Differential Dx/Diagnosis Provider Diagnosis: Bronchitis Discharge ED - Sign-Out/Discharge Documenting (check all that apply): Patient Departure, Post-Discharge Follow Up All imaging exams completed and their final reports reviewed: No Studies - Discharge Plan Condition: Stable Disposition: HOME Prescriptions: predniSONE TAB* [Deltasone 20 MG TAB*] 20 mg PO BID #10 tab Patient Education Materials: Acute Bronchitis (ED) Referrals: Maria T Quesada NP [Primary Care Provider] - 7 Days - Billing Disposition and Condition Condition: STABLE Disposition: Home
== END 2019-08-24 09:18 | disposition home or self-care (01) ==
LOC: UCCORT 08:31
DX: J45.909 Unspecified asthma, uncomplicated (principal); J06.9 Acute upper respiratory infection, unspecified; F17.210 Nicotine dependence, cigarettes, uncomplicated; Z88.1 Allergy status to other antibiotic agents; Z88.0 Allergy status to penicillin
CPT/HCPCS: 99212; G0463

== ENCOUNTER 2019-09-09 07:47 | Emergency (ER) | payer BC ==
[2019-09-09 08:09] VITALS: BP 131/84
[2019-09-09] MEDS ORDERED: Acetaminophen TAB* 325 MG PO ONE (08:21)
--- NOTE | 2019-09-09 08:32 | ED ---
GI/ HPI - HPI Summary HPI Summary: 43 yr old female with the complaint of body aches, nausea, chills, diarrhea several times a day for two days. No abdominal pain. No dizziness. She works for the [employer]. She has missed the past two days of work. She denies SOB, productive cough. She has colitis and is followed by GI. For her this does not feel like a colitis issue. She has no urinary symptoms. - History of Current Complaint Chief Complaint: UCGI Time Seen by Provider: 09/09/19 08:07 Stated Complaint: FEVER,NAUSEA,BODY ACHES,SWEATY Hx Last Menstrual Period: early Pain Intensity: 5 - Additional Pertinent History Primary Care Physician: [id number] - Allergy/Home Medications Allergies/Adverse Reactions: Allergies Allergy/AdvReac Type Severity Reaction Status Date / Time erythromycin base Allergy Rash Verified 09/09/19 07:54 levofloxacin [From Levaquin] Allergy Rash Verified 09/09/19 07:54 Penicillins Allergy Rash Verified 09/09/19 07:54 Quinolones Allergy Rash Verified 09/09/19 07:54 moxifloxacin [From Avelox] AdvReac Vomiting Verified 09/09/19 07:54 Home Medications: Home Medications Ibuprofen TAB* [Advil TAB*] 200 mg PO Q6H PRN 09/09/19 [History Confirmed ] Triamcinolone NASAL SPRAY* [Nasacort AQ Nasal [place]*] 1 spray .SEE ORDER SEE INSTRUCTIONS 09/09/19 [History Confirmed 09/09/19] PMH/Surg Hx/FS Hx/Imm Hx Endocrine/Hematology History: Reports: Hx Diabetes - DIET CONTROLLED, Hx Thyroid Disease - thyroiditis Denies: Hx Systemic Lupus Erythematosus Cardiovascular History: Reports: Hx Hypertension Denies: Hx Congestive Heart Failure, Hx Pacemaker/ICD Respiratory History: Reports: Hx Asthma Denies: Hx Chronic Obstructive Pulmonary Disease (COPD) GI History: Reports: Hx Gastroesophageal Reflux Disease Denies: Hx Ulcer History: Denies: Hx Renal Disease Musculoskeletal History: Denies: Hx Rheumatoid Arthritis Sensory History: Denies: Hx Contacts or Glasses, Hx Hearing Aid Opthamlomology History: Denies: Hx Contacts or Glasses Psychiatric History: Denies: Hx Panic Disorder - Cancer History Cancer Type, Location and Year: Cervical cancer - Surgical History Surgery Procedure, Year, and Place: Cholecystectomy, LEEP x 3, tubal ligation , thyroidectomy,CYST REMOVAL OVARY - Immunization History Date of Tetanus Vaccine: utd Date of Influenza Vaccine: none Infectious Disease History: No Infectious Disease History: Denies: Hx Clostridium Difficile, Hx Hepatitis, Hx Human Immunodeficiency Virus (HIV), Hx of Known/Suspected MRSA, Hx Shingles, Hx Tuberculosis, Hx Known/ Suspected VRE, Hx Known/Suspected VRSA, History Other Infectious Disease, Traveled Outside the [place] in Last 30 Days - Family History Known Family History: Positive: Cardiac Disease, Hypertension, Diabetes, Renal Disease - mother- multiple kindey problems, did not know what - Social History Alcohol Use: Rare Substance Use Type: Reports: Marijuana Substance Use Comment - Amount & Last Used: Medical Marijuana last night Hx Tobacco Use: Yes Smoking Status (MU): Light Every Day Tobacco Smoker Type: Cigarettes Amount Used/How Often: 2 CIGS A DAY Length of Time of Smoking/Using Tobacco: On and Off Since Age 28 Have You Smoked in the Last Year: Yes Review of Systems Positive: Chills Positive: Diarrhea All Other Systems Reviewed And Are Negative: Yes Physical Exam Triage Information Reviewed: Yes Vital Signs On Initial Exam: Initial Vitals Temp Pulse Resp BP Pulse Ox 97.8 F 61 20 131/84 98 09/09/19 08:02 09/09/19 08:02 09/09/19 08:02 09/09/19 08:02 09/09/19 08:02 Vital Signs Reviewed: Yes Appearance: Positive: Well-Appearing, No Pain Distress Skin: Positive: Warm, Skin Color Reflects Adequate Perfusion Head/Face: Positive: Normal Head/Face Inspection Eyes: Positive: EOMI ENT: Positive: Nasal congestion Neck: Positive: Nontender Respiratory/Lung Sounds: Positive: Clear to Auscultation, Breath Sounds Present Cardiovascular: Positive: RRR. Negative: Murmur Abdomen Description: Negative: Distended Musculoskeletal: Positive: Strength/ROM Intact Neurological: Positive: Sensory/Motor Intact, Alert, Oriented to Person Place, Time, CN Intact II-III, Normal Gait, Speech Normal Psychiatric: Positive: Normal AVPU Assessment: Alert Diagnostics - Vital Signs Vital Signs Temp Pulse Resp BP Pulse Ox 09/09/19 08:02 97.8 F 61 20 131/84 98 - Laboratory Lab Statement: Any lab studies that have been ordered have been reviewed, and results considered in the medical decision making process. GIGU Course/Dx - Course Course Of Treatment: 43 yr old with neg rapid flu and UA that is normal with normal specific gravity and no ketones. She has non specific symptoms with some diarrhea. She is recommended to go to the ER for any worsening symptoms or concerns. - Diagnoses Provider Diagnoses: Diarrhea, Myalgia Discharge ED - Sign-Out/Discharge Documenting (check all that apply): Patient Departure All imaging exams completed and their final reports reviewed: No Studies - Discharge Plan Condition: Good Disposition: HOME-RECOMMEND TO ED Patient Education Materials: Acute Diarrhea (ED) Referrals: Maria T Quesada [employer] WELDER [Primary Care Provider] - 1 Day Additional Instructions: IT IS RECOMMENDED YOU GO TO THE ER FOR FURTHER LABS AND SCREENING TESTS TO IDENTIFY THE CAUSE OF YOUR ILLNESS. THE CAUSE REMAINS UNKNOWN AT THIS POINT. - Billing Disposition and Condition Condition: GOOD Disposition: Home-Recommend to ED
[2019-09-09 08:44] LABS: Influenza A Molecular NEGATIVE (Negative); Influenza B Molecular NEGATIVE (Negative)
== END 2019-09-09 09:13 | disposition home health service (06) ==
LOC: UCCORT 07:47
DX: M79.10 Myalgia, unspecified site (principal); R19.7 Diarrhea, unspecified; R11.0 Nausea; E11.9 Type 2 diabetes mellitus without complications; I10 Essential (primary) hypertension; Z88.1 Allergy status to other antibiotic agents; Z88.0 Allergy status to penicillin; Z85.41 Personal history of malignant neoplasm of cervix uteri; F17.210 Nicotine dependence, cigarettes, uncomplicated
CPT/HCPCS: 81003; 99212; A9270-GY; G0463

== ENCOUNTER 2019-09-11 10:28 | Emergency (ER) | payer BC ==
--- OUTSIDE RECORDS SUMMARY | 2019-09-11 10:39 | XMS REPORT | Continuity of Care Document ---
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 Onset: 07/28/2019 Anxiety state Kelsey Stokes M.D. Onset: 07/28/2019 Tobacco user Kelsey Stokes M.D. Onset: 07/28/2019 Premature beats Gustavo Wadsworth M.D., Onset: 06/08/2019 [facility] Hypothyroidism Kelsey Stokes M.D. Onset: 05/24/2019 [...] 05/24/2019 Palpitations Gustavo Wadsworth M.D., Onset: 12/16/2018 [facility] Social History Type Date Description Comments [...] Potassium 1 by mouth every 30tabs I10 Recio Jazzy 08/05/2019 25mg day Julia, MSN, Tablets MANUFACTURING SALES REPRESENTATIVE Xanax 1-2 tab by mouth Unknown 0.25mg Tablets as needed Levalbuterol HCL use 1 vial via Unknown nebulizer every 6 0.63mg/3ML Nebulizer hours as needed for shortness of breath Levothyroxine Sodium 1 by mouth every Unknown day 125mcg Tablets Atenolol 1 by mouth every Unknown 25mg Tablets day Zyrtec Allergy 1 tab by mouth Unknown 10mg every night Tablets History Medications Atenolol take 50 mg every 120tabs Gustavo Wadsworth 06/10/2019 - 50mg morning and 25 M.Neisha, [facility] 07/28/2019 Tablets mg every night Flecainide Acetate take one tablet 60tabs R25.1 Gustavo Wadsworth 2018 - by mouth twice a Neisha Luis, [facility] Unknown 50mg Tablets day Verapamil HCL ER 1 by mouth every 90caps I49.3 Gustavo Wadsworth 2018 - day Neisha Luis, [facility] 06/10/2019 180mg Caps ER 24HR Potassium Chloride 1 by mouth twice 180tabs Gustavo Wadsworth 06/08/2019 - Sharonda ER a day Neisha Luis, [facility] 07/28/2019 20Meq Tablets ER Verapamil HCL ER 1 by mouth every 90caps Gustavo Wadsworth 06/04/2019 - day Neisha Luis, [facility] Unknown 180mg Caps ER 24HR Immunizations Description No Information Available Vital Signs Date Vital Result Comment 08/31/2019 11:09am BP Systolic 144 mmHg BP Diastolic 75 mmHg Body Temperature 98.4 F Heart Rate 61 /min Respiratory Rate 16 /min Height 64.75 inches 5'4.75" Weight 183.25 lb BMI (Body Mass Index) 30.7 kg/m2 BSA (Body Surface Area) 1.90 m2 [place] body weight in kilograms 56 kg O2 % BldC Oximetry 98 % Pain Level 7 back 08/05/2019 3:41pm BP Systolic Sitting Left Arm 145 mmHg BP Diastolic Sitting Left Arm 82 mmHg Heart Rate 76 /min Respiratory Rate 18 /min Height 66 inches 5'6" Weight 186.00 lb BMI (Body Mass Index) 30.0 kg/m2 BSA (Body Surface Area) 1.94 m2 [place] body weight in kilograms 59 kg O2 % BldC Oximetry 98 % Ejection Fraction 60% Results Test Date Facility Test Result H/L Range Note CBC 08/31/2019 [facility] White Blood 10.0 K/uL Normal 3.1-10.7 1 W/Automated [address] [place] [address] [phone] Red Blood Count 4.52 M/uL Normal 3.90-5.40 Hemoglobin 14.6 gm/dL Normal 11.6-15.8 Hematocrit 43.8 % Normal 36.0-46.1 Mean Cell Volume 96.9 fl Normal 80.9-99.0 Mean Corpuscular HGB 32.3 pg Normal 25.9-32.7 Mean Corpuscular HGB Conc 33.3 g/dL Normal 30.8-34.3 Platelet Count 303 K/uL Normal 155-360 Red Cell Distri Width SD 43.8 fl Normal 36-47 Red Cell Distri Width %CV 12.3 % Normal 11.7-14.4 Mean Platelet Volume 10.7 fl Normal 8.9-12.4 Neut% 62.2 % Normal 40.4-72.8 Lymph % 29.3 % Normal 20.0-42.0 [place] % 6.6 % Normal 4.3-13.2 Eo% 1.0 % Normal 0.0-6.6 Bas% 0.6 % Normal 0.0-1.1 Immature Grans 0.3 % Normal 0.0-5.0 NRBC % 0.0 /100WBC < 10/ 100 WBC Neut# 6.21 K/uL Normal 1.8-7.0 Lymph # 2.92 K/uL Normal 1.0-4.0 [place] # 0.66 K/uL Normal 0.3-0.9 Eos # 0.10 K/uL Normal 0.0-0.5 Baso # 0.06 K/uL Normal 0.0-0.1 Immature Grans Absolute 0.03 K/uL NRBC # 0.00 K/uL Comprehensive 08/31/2019 [facility] Glucose 83 mg/dL Normal 74-106 Metabolic Panel [address] [place] [address] [phone] BUN 11 mg/dL Normal 7-18 Creatinine 0.7 mg/dL Normal 0.6-1.3 Glom Filtration Rate, Estimate >60 mL/min >60 If >60 mL/min >60 2 BUN/Creat 15.7 ratio Sodium 140 mmol/L Normal 136-145 Potassium 3.8 mmol/L Normal 3.5-5.1 Chloride 109 mmol/L High 98-107 Carbon Dioxide 26 mmol/L Normal 21-32 Anion Gap 5 mEq/L Low 8-16 Calcium 8.7 mg/dL Normal 8.5-10.1 Total Protein 6.7 g/dL Normal 6.4-8.2 Albumin 3.8 g/dL Normal 3.4-5.0 Globulin 2.9 g/dL Normal 1.9-4.3 Alb/Glob 1.3 ratio Bilirubin,Total 0.2 mg/dL Normal 0.2-1.0 Sgot/Ast 11 U/L Low 15-37 3 SGPT/Alt 22 U/L Normal 12-78 Alkaline Phosphatase 58 U/L Normal 45-117 Iron-Tibc-%Sat 08/31/2019 [facility] Serum Iron 55 g/dL Normal 50-170 [address] [place] [address] [phone] Total Iron Binding Capacity 282 g/dL Normal 250-450 Transferrin %Saturation 20 % Normal 12-57 Laboratory test 08/31/2019 [facility] Ferritin 24 ng/mL Normal 8-252 finding [address] [place] [address] [phone] LDH 137 U/L Normal 84-246 Laboratory 08/31/2019 [facility] Immunoglobulin <pending> test finding [address],[place] [address] [phone] Vitamin B12 08/31/2019 [facility] Vitamin B12 618 pg/mL Normal 193- And Folate [address] [place], [place] [id number] [phone] Folic Acid > 20.0 ng/mL High 3.1-17.5 Laboratory test 08/31/2019 [facility] Vitamin D,25-Hydroxy <pending> finding [address] [place], [place] [address] [phone] Ebv AB Vca,Igg <pending> Ebv AB Vca,Igm <pending> Ebv Early Antigen AB, Igg <pending> Ebv Nuclear Antigen AB, Igg <pending> Basic Metabolic Panel 08/24/2019 [facility] Glucose 174 mg/dL High 74-106 4 [address] [place] [address] [phone] BUN 10 mg/dL Normal 7-18 Creatinine 0.8 mg/dL Normal 0.6-1.3 Glom Filtration Rate, Estimate >60 mL/min >60 If >60 mL/min >60 5 BUN/Creat 12.5 ratio Sodium 139 mmol/L Normal 136-145 Potassium 3.8 mmol/L Normal 3.5-5.1 Chloride 108 mmol/L High 98-107 Carbon Dioxide 24 mmol/L Normal 21-32 Anion Gap 7 mEq/L Low 8-16 Calcium 9.0 mg/dL Normal 8.5-10.1 Laboratory test 08/24/2019 [facility] Magnesium 2.3 mg/dL Normal 1.8-2.4 finding [address] [place], [place] [id number] [phone] Laboratory test 08/24/2019 [facility] Thyroid Stim 3.72 Normal 0.30-4.20 finding [address] Hormone uIU/[place] [address] [phone] Free T3 2.41 pg/mL Normal 2.18-3.98 Free T4 1.21 ng/dL Normal 0.76-1.46 Laboratory test 06/01/2019 [facility] Magnesium 1.9 mg/dL Normal 1.9-2.7 finding [phone] Basic Metabolic 06/01/2019 [facility] Sodium 139 mmol /L Normal 135-145 Panel [phone] Potassium 4.0 mmol/L Normal 3.5-5.0 Chloride 108 mmol/L Normal 101-111 Co2 Carbon Dioxide 23 mmol/L Normal 22-32 Anion Gap 8 mmol/L Normal 2-11 Glucose 126 mg/dL High 70-100 Blood Urea Nitrogen 13 mg/dL Normal 6-24 Creatinine 0.66 mg/dL Normal 0.51-0.95 BUN/Creatinine Ratio 19.7 Normal 8-20 Calcium 9.4 mg/dL Normal 8.6-10.3 Egfr Non- 97.7 >60 Egfr 118.3 >60 6 Laboratory test 05/24/2019 [facility] Uric Acid 4.1 mg/dL Normal 2.6-6.0 [address] [place], [place] [address] [phone] CK 53 U/L Normal 26-192 Rheumatoid Factor Screen < 10.0 IU/mL Normal 0.0-15.0 C-Reactive Protein,Quant < 3.0 mg/L <3.0 Rheumatoid 05/24/2019 [facility] Sedimentation 6 mm/hr Normal 2-40 8 Panel ([facility]) [address] Rate [place], [place] [address] [phone] Drugs Of 05/24/2019 [facility] Amphetamines Negative Abuse-Urine [address] (Urine) Screen 7 [place], [place] [address] [phone] Barbiturates (Urine) Negative Benzodiazepines (Urine) Negative Cannabinoids (Urine) POSITIVE Abnormal Cocaine Metabolite (Urine) Negative Methadone (Urine) Negative Opiates (Urine) Negative Urine Cutoffs * 9 Ua RFX Micro & Culture 05/24/2019 [facility] Urine Color YELLOW Yellow II [address] [place], [place] [address] [phone] Urine Clarity CLEAR Clear Urine Glucose - Dipstick NEGATIVE mg/dL Negative Urine Bilirubin - Dipstick NEGATIVE Negative Urine Ketone NEGATIVE mg/dL Negative Urine Specific [place] <= 1.005 Low 1.010-1.030 Urine Blood TRACE [...] Seen Source: URINE, CLEAN CAT <SEE NOTE> 10 CBC W/Automated 05/24/2019 [facility] White Blood 8.8 K/uL Normal 3.1-10.[address] [place] [place] [address] [phone] Red Blood Count 4.39 M/uL Normal 3.90-5.40 [...] 40.4-72.8 Lymph % 33.3 % Normal 20.0-42.0 [place] % 6.3 % Normal 4.3-13.2 Eo% 0.9 % Normal 0.0-6.6 Bas% 0.7 % Normal 0.0-1.1 Immature Grans 0.1 % Normal 0.0-5.0 NRBC % 0.0 /100WBC < 10/ 100 WBC Neut# 5.14 K/uL Normal 1.8-7.0 Lymph # 2.92 K/uL Normal 1.0-4.0 [place] # 0.55 K/uL Normal 0.3-0.9 Eos # 0.08 K/uL Normal 0.0-0.5 Baso # 0.06 K/uL Normal 0.0-0.1 Immature Grans Absolute 0.01 K/uL NRBC # 0.00 K/uL Blood Culture 05/24/2019 [facility] Blood Culture NO GROWTH: FINAL [address] Aerobic <SEE NOTE> [place] [address] [phone] Blood Culture Anaerobic NO GROWTH: FINAL <SEE NOTE> 12 Laboratory 05/24/2019 [facility] Vitamin 25.2 ng/mL Low 30.0-100.0 13 test finding [address] D,25-[place] [address] [phone] Ehrlichia 05/24/2019 [facility] E.chaffeenis Negative Neg:<1:[address] [place] [place] [address] [phone] E.chaffeenis IgM Titer Negative Neg:<1:20 14 Hge IgG Titer Negative Neg:<1:64 15 Hge IgM Titer Negative Neg:<1:20 16 Lyme Igg & Igm By 05/24/2019 [facility] Lyme AB Igg By Western . Western Blot [address] [place] [address] [phone] P93 AB Absent . P66 AB Absent . P58 AB Absent . P45 AB Absent . P41 AB Absent . P39 AB Absent . P30 AB Absent . P28 AB Absent . P23 AB Absent . P18 AB Present Abnormal . Lyme Igg WB Interpretation Negative . 17 Lyme AB Igm By Western Blot . P41 AB Absent . P39 AB Absent . P23 AB Absent . Lyme Igm WB Interpretation Negative . 18 Laboratory test 05/24/2019 [facility] Hepatitis A AB, Negative Negative finding [address] [place] [address] [phone] Lyme Total AB/Reflex To WB < 0.91 ISR 0.00-0.90 19 Babesia Microti 05/24/2019 [facility] Babesia <1:10 Neg:<1:10 20 Igg/M Abs,Ifa [address] microti,[place] [address] [phone] Babesia microti,IgM <1:10 Neg:<1:10 Ebv Acute 05/24/2019 [facility] Ebv AB <36.0 U/mL 0.0-35.[address] Vca,[place] [address] [phone] Ebv Early Antigen AB, IgG <9.0 U/mL 0.0-8.9 22 Ebv AB Vca,Igg 358.0 U/mL High 0.0-17.9 23 Ebv Nuclear Antigen AB, Igg >600.0 U/mL High 0.0-17.9 24 Ebv Interpretation (SEE NOTE) 25 Comprehensive Jeovany 05/24/2019 [facility] Anti-Dna <1 IU/mL 0-[address] [place] [address] (Irfbxv) [phone] SM Antibody <0.2 AI 0.0-0.9 MESH WORKER Antibody <0.2 AI 0.0-0.9 Sjogrens Antibodies (Ssa) <0.2 AI 0.0-0.9 Antichromatin Antibodies <0.2 AI 0.0-0.9 Carmen-1 Antibody <0.2 AI 0.0-0.9 Sjogrens Antibodies (SSB) <0.2 AI 0.0-0.9 Centromere B Antibodies < 0.2 AI 0.0-0.9 Scleroderma Antibodies, SCL-70 <0.2 AI 0.0-0.9 See below: (SEE NOTE) 27 Laboratory test 05/24/2019 [facility] Antinuclear Negative . [address] Antibodies, Ifa [place], [place] [address] [phone] Immunoglobulins 05/24/2019 [facility] Immunoglobulin 519 mg/dL Low 700- A/G/M, QN, Ser [address] G,Quant,Serum [address] [place], [place] [address] [phone] Immunoglobulin A 214 mg/dL 87-352 Immunoglobulin M 44 mg/dL 26-217 Laboratory test 05/24/2019 [facility] Treponema Negative Negative finding [address] [place] [address] [place] [phone] Hepatitis B Surface Antibody Non Reactive . 29 Hepatitis C Antibody < 0.1 s/corat 0.0-0.9 30 HIV Screen 05/24/2019 [facility] HIV Screen 4th Non Reactive Non Reactive [address] Generation wRfx Reflex [place], [place] [address] [phone] 1 R53.83 D72.829 R76.8 2 Note: Persistent reduction for 3 months or more in an eGFR <60 mL/min/1.73 m2 defines CKD. Patients with eGFR values >/=60 mL/min/1.73 m2 may also have CKD if evidence of persistent proteinuria is present. The original MDRD equation for estimated GFR is not valid for patients less than 18 years of age. Additional information may be found at www.kdoqi.org. 3 Values below the stated reference ranges of AST and ALT can be seen in normal populations. Clinical correlation is suggested. 4 I10 R53.83 E03.9 R00.2 5 Note: Persistent reduction for 3 months or more in an eGFR <60 mL/min/1.73 m2 defines CKD. Patients with eGFR values >/=60 mL/min/1.73 m2 may also have CKD if evidence of persistent proteinuria is present. The original MDRD equation for estimated GFR is not valid for patients less than 18 years of age. Additional information may be found at www.kdoqi.org. 6 Because ethnic data is not always readily [...] 15-29 5 Kidney failure <15 (or dialysis) 7 R53.83 M25.50 D72.829 8 This result was obtained with an ESR method that is not based on the standard [place]gren Method. When comparing results obtained from the traditional Westergren ESR and this method it is important to refer to the reference range for each method. Method: Capillary Photometry 9 URINE SPECIMENS ARE SCREENED AT THE LISTED CUTOFFS DRUG CLASS INITIAL TEST LEVEL Amphetamines 1000 ng/mL Barbiturates 200 ng/mL Benzodiazepines 200 ng/mL Cannabinoids 50 ng/mL Cocaine Metabolite 300 ng/mL Methadone 300 ng/mL Opiates 300 ng/mL Any PRESUMPTIVE POSITIVE findings are UNCONFIRMED. Confirmatory testing is suggested if findings are unexpected. Please contact laboratory if confirmatory testing is desired. SPECIMENS ARE HELD FOR 72 HOURS. 10 URINE, CLEAN CATCH 11 NO GROWTH: FINAL REPORT 12 NO GROWTH: FINAL REPORT 13 Vitamin D deficiency has been defined by the [place] of Medicine and an Endocrine Society practice guideline as a level of serum 25-OH vitamin D less than 20 ng/mL (1,2). The Endocrine Society went on to further define vitamin D insufficiency as a level between 21 and 29 ng/mL (2). 1. IOM ([place] of Medicine). 2010. Dietary reference intakes for calcium and D. [place]: The National Academies Press. 2. James MF, Lara REYNOLDS, Tyson SCOTT, et al. Evaluation, treatment, and prevention of vitamin D deficiency: an Endocrine Society clinical practice guideline. JCEM. 2010; 96(7):1911-30. Performed at: [address] [id number] Pig Casting Machine Operator: Abigail Garcia MD, Phone: [phone] 14 IgG titers if 1:64 or greater indicate exposure or acute and convalescent samples showing a four-fold increase, and/or the presence of IgM indicate recent or current infection. 15 HGE IgG levels are detectable 7 to 10 days post infection and persist approximately one year. 16 Due to a reagent backorder, this test was performed using a different assay. The reference interval for this alternate assay is: Negative <1:64 Positive 1:64 or greater IgM levels usually rise 3 to 5 days post infection and fall to normal levels in approximately 30 to 60 days. Performed at: [address] [id number] [employer] Casting Machine Operator: Abigail Garcia MD, Phone: [phone] Performed at: [address] [id number] Pig Casting Machine Operator: Seth Rushing MD, Phone: [phone] 17 Positive: 5 of the following Borrelia-specific bands: 18,23,28,30,39,41,45,58, 66, and 93. Negative: No bands or banding patterns which do not meet positive criteria. 18 Note: An equivocal or positive EIA result [...] are those recommended by CDC/ASTPHLD. p23=Osp C, h76=lscutmieg Note: Sera from individuals with the following may cross react in the Lyme Western Blot assays: other spirochetal diseases (periodontal disease, leptospirosis, relapsing fever, yaws, and pinta); connective autoimmune (Rheumatoid Arthritis and Systemic Lupus Erythematosus and also individuals with Antinuclear Antibody); other infections (Milliken Spotted Fever; Giuliana-Talbert Virus, and Cytomegalovirus). 19 Negative <0.91 Equivocal 0.91 - 1.09 Positive >1.09 20 This test was developed and its performance characteristics determined by [facility]. It has not been cleared or approved by the U.S. Food and Drug Administration. The FDA has determined that such clearance or approval is not necessary. This test is used for clinical purposes. It should not be regarded as investigational or research. 21 Negative <36.0 Equivocal 36.0 - 43.9 Positive >43.9 22 Negative < 9.0 Equivocal 9.0 - 10.9 Positive >10.9 23 Negative <18.0 Equivocal 18.0 - 21.9 Positive >21.9 24 Negative <18.0 Equivocal 18.0 - 21.9 Positive >21.9 25 EBV Interpretation Chart Interpretation EBV-IgM EA(D)-IgG VCA-IgG EBNA-IgG EBV Seronegative - - - - Early Phase + - - - Acute Primary + +or- + - Infection Convalescence/Past - +or- + + Infection Reactivated +or- +or- + + Infection + Antibody Present - Antibody Absent 26 Negative <5 Equivocal 5 - 9 Positive >9 27 Autoantibody Disease Association Condition Frequency --------- Antinuclear Antibody, SLE, mixed connective Direct (JEOVANY-D) tissue diseases --------- dsDNA SLE 40 - 60% --------- Chromatin Drug induced SLE 90% SLE 48 - 97% --------- SSA (Ro) SLE 25 - 35% Sjogren's Syndrome 40 - 70% Lupus 100% --------- SSB (La) SLE 10% Sjogren's Syndrome 30% --------- Sm (anti-Delgadillo) SLE 15 - 30% --------- MESH WORKER Mixed Connective Tissue Disease 95% (U1 nRNP, SLE 30 - 50% anti-ribonucleoprotein) Polymyositis and/or Dermatomyositis 20% --------- Scl-70 (antiDNA Scleroderma (diffuse) 20 - 35% topoisomerase) Crest 13% --------- Carmen-1 Polymyositis and/or Dermatomyositis 20 - 40% --------- Centromere B Scleroderma - Crest variant 80% 28 Negative <1:80 Borderline 1:80 Positive >1:80 29 Non Reactive: Inconsistent with immunity, less than 10 mIU/mL Reactive: Consistent with immunity, greater than 9.9 mIU/mL 30 INFCE Result Units: s/co ratio Negative: < 0.8 Indeterminate: 0.8 - 0.9 Positive: > 0.9 The CDC recommends that a positive HCV antibody result be followed up with a HCV Nucleic Acid Amplification test (256667). Performed at: [address] [id number] Pig Casting Machine Operator: Abigail Garcia MD, Phone: [phone] Performed at: [address] [id number] Pig Casting Machine Operator: Seth Rushing MD, Phone: [phone] Performed at: [address] [id number] Pig Casting Machine Operator: Abigail Garcia MD, Phone: [phone] Procedures Date Code Description Status 08/05/2019 86482 EKG-Tracing And Report Completed 06/08/2019 64440 EKG-Tracing And Report Completed Medical Devices Description No Information Available Encounters Type Date Location Provider Dx Diagnosis Office Visit 08/05/2019 Cardiology Office Jazzy Recio I49.3 Ventricular premature 3:20p SOLEDAD Dumont, depolarization MANUFACTURING SALES REPRESENTATIVE R07.9 Chest pain, unspecified I10 Essential (primary) hypertension Office Visit 07/28/2019 1:30p Physical Medicine & Kelsey Stokes, R53.83 Other fatigue Infectious Disease M.D. M25.50 Pain in unspecified joint D72.829 Elevated white blood cell count, unspecified F41.9 Anxiety disorder, unspecified R76.8 Other specified abnormal immunological findings in serum Office Visit 06/10/2019 1:30p Cardiology Office Reji Delgadillo, R25.1 MD Thanh unspecified I49.3 Ventricular premature depolarization Office Visit 06/08/2019 Cardiology Gustavo Wadsworth I49.3 Ventricular 8:20a Office Neisha Luis, [facility] premature depolarization I10 Essential (primary) hypertension Office Visit 05/24/2019 2:00p Physical Medicine & Kelsey Stokes, R53.83 Other fatigue Infectious Disease M.DJason M25.50 Pain in unspecified joint D72.829 Elevated white blood cell count, unspecified R51 Headache C53.9 Malignant neoplasm of cervix uteri, unspecified E11.9 Type 2 diabetes mellitus without complications I10 Essential (primary) hypertension E03.9 Hypothyroidism, unspecified Assessments Date Code Description Provider 08/31/2019 R53.83 Other fatigue SelvinFranca ndiaye, DO 08/31/2019 R10.84 Generalized abdominal pain Alex Sanont, DO 08/05/2019 I49.3 Ventricular premature depolarization Jazzy Recio , [facility], [facility] 08/05/2019 R07.9 Chest pain, unspecified Jazzy Recio, MSN, [facility] 08/05/2019 I10 Essential (primary) hypertension Jazzy Recio, MSN, [facility] 07/28/2019 R53.83 Other fatigue Kelsey Stokes M.D. [...] I49.3 Ventricular premature depolarization Gustavo Wadsworth M.D., [facility] 06/08/2019 I10 Essential (primary) hypertension Gustavo Wadsworth M.D., [facility] 05/24/2019 R53.83 Other fatigue Kelsey Stokes [...] Appointment(s):09/09/2019 7:40 am - Jazzy Recio, SOLEDAD, MANUFACTURING SALES REPRESENTATIVE at Cardiology Office Functional Status Functional Condition Comment Date Status Independent with all ADL's Active Mental Status Description No Information Available Referrals Refer to Reason for Referral Status Appt Date Talia Serrano MD Sent [address] [place], [place] [address] [phone] Christopher Pineda MD discuss possible PVC ablation / management Scheduled MICHAELA per Dr Delgadillo, please. [phone] [facility] [address], [address], [address] [place], [place] [address] [phone] Franca Sanon DO Patient Notified 08/31/[address] [place] [address] [phone] Beck Colin MD Closed 08/10/2019 [facility] [address] [place], [place] [address] [phone] Sammy Desai M.D. Closed 06/15/2019 [facility] [address] [place] [address] [phone]
--- NOTE | 2019-09-11 11:17 | ED ---
GI/ HPI - HPI Summary HPI Summary: Patient is a 43 y/o F presenting to [facility] with complaints of N/V/D, abdominal pain, decreased appetite and fever for the past five days. She describes diarrhea and vomiting as "non-stop" and notes that the diarrhea is worse than the vomiting. Fever was measured to be 100.9 F. Patient reports no blood in diarrhea or vomit. Patient had diffuse body aches with hot flashes and chills when Sx first onset but these Sx have since resolved. Abdominal pain is diffuse and constant but waxes and wanes in intensity. Patient was evaluated in [place] ED last night, 09/10/19. CT abd/pel was done. She was given fluids, pain medications (Dilaudid), and antiemetic medications. Patient was discharged to home. She states that she was given Reglan upon discharge but vomited this up on car ride home. No stool cultures were done. Sx continued today. Patient has Zofran but denies relief in Sx with this medication. She called PCP office and was advised to come to [facility] for workup. Patient had 3 imodium doses today as well as Vicodin. She states it has been around 45 minutes since last episode of diarrhea. Patient has Hx of colitis, gastritis, thyroid disease. PSHx of gallbladder surgery is noted. She states that she smokes cigarettes and uses marijuana but denies alcohol usage. She reports no recent travel outside of the country, no sick contacts, and no camping. 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 Boyfriend is in the room. On triage, pain is rated 5/10. Home medications and allergies are reviewed. - History of Current Complaint Chief Complaint: EDNauseaVomitDiarrh Time Seen by Provider: 09/11/19 10:46 Stated Complaint: VOMITING AND DIARRHEA PER PT Hx Obtained From: Patient Hx Last Menstrual Period: early Onset/Duration: Started Days Ago, Still Present - N/V/D, abdominal pain, decreased appetite and fever, Resolved - body aches with hot flashes and chills Timing: Lasting Days Severity: Moderate Current Severity: Moderate Pain Intensity: 5 Location of Pain: Diffuse Associated Signs and Symptoms: Positive: Nausea, Vomiting, Diarrhea, Fever, Change in Appetite - decreased, Abdominal Pain, Other: - negative - blood in diarrhea or vomit; positive - chills, body aches, hot flashes since resolved - Additional Pertinent History Primary Care Physician: [id number] - Allergy/Home Medications Allergies/Adverse Reactions: Allergies Allergy/AdvReac Type Severity Reaction Status Date / Time erythromycin base Allergy Rash Verified 09/11/19 10:33 levofloxacin [From Levaquin] Allergy Rash Verified 09/11/19 10:33 Penicillins Allergy Rash Verified 09/11/19 10:33 Quinolones Allergy Rash Verified 09/11/19 10:33 moxifloxacin [From Avelox] AdvReac Vomiting Verified 09/11/19 10:33 PMH/Surg Hx/FS Hx/Imm Hx Endocrine/Hematology History: Reports: Hx Diabetes - DIET CONTROLLED, Hx Thyroid Disease - thyroiditis Denies: Hx Systemic Lupus Erythematosus Cardiovascular History: Reports: Hx Hypertension Denies: Hx Congestive Heart Failure, Hx Pacemaker/ICD Respiratory History: Reports: Hx Asthma Denies: Hx Chronic Obstructive Pulmonary Disease (COPD) GI History: Reports: Hx Gastroesophageal Reflux Disease Denies: Hx Ulcer History: Denies: Hx Renal Disease Musculoskeletal History: Denies: Hx Rheumatoid Arthritis Sensory History: Denies: Hx Contacts or Glasses, Hx Hearing Aid Opthamlomology History: Denies: Hx Contacts or Glasses Psychiatric History: Denies: Hx Panic Disorder - Cancer History Cancer Type, Location and Year: Cervical cancer - Surgical History Surgery Procedure, Year, and Place: Cholecystectomy, LEEP x 3, tubal ligation , thyroidectomy,CYST REMOVAL OVARY - Immunization History Date of Tetanus Vaccine: utd Date of Influenza Vaccine: none Infectious Disease History: No Infectious Disease History: Denies: Hx Clostridium Difficile, Hx Hepatitis, Hx Human Immunodeficiency Virus (HIV), Hx of Known/Suspected MRSA, Hx Shingles, Hx Tuberculosis, Hx Known/ Suspected VRE, Hx Known/Suspected VRSA, History Other Infectious Disease, Traveled Outside the [place] in Last 30 Days - Family History Known Family History: Positive: Cardiac Disease, Hypertension, Diabetes, Renal Disease - mother- multiple kindey problems, did not know what - Social History Alcohol Use: Rare Substance Use Type: Reports: Marijuana Substance Use Comment - Amount & Last Used: Medical Marijuana last night Hx Tobacco Use: Yes Smoking Status (MU): Light Every Day Tobacco Smoker Type: Cigarettes Amount Used/How Often: 2 CIGS A DAY Length of Time of Smoking/Using Tobacco: On and Off Since Age 28 Have You Smoked in the Last Year: Yes Review of Systems Constitutional: Other - positive - body aches, hot flashes, since resolved Positive: Fever, Chills - since resolved Gastrointestinal: Other - positive - decreased appetite; negative - blood in vomit or diarrhea Positive: Abdominal Pain, Vomiting, Diarrhea, Nausea All Other Systems Reviewed And Are Negative: Yes Physical Exam - Summary Physical Exam Summary: Constitutional: Well-developed, Well-nourished, Alert. (-) Distressed Skin: Warm, Dry HENT: Normocephalic; Atraumatic Eyes: Conjunctiva normal Neck: Musculoskeletal ROM normal neck. (-) JVD, (-) Stridor, (-) Tracheal deviation Cardio: Rhythm regular, rate normal, Heart sounds normal; Intact distal pulses; Radial pulses are 2+ and symmetric. (-) Murmur Pulmonary/Chest wall: Effort normal. (-) Respiratory distress, (-) Wheezes, (-) Rales Abd: Soft, (+) mild diffuse tenderness, (-) Distension, (-) Guarding, (-) Rebound Musculoskeletal: (-) Edema Lymph: (-) Cervical adenopathy Neuro: Alert, Oriented x3 Psych: Mood and affect Normal Triage Information Reviewed: Yes Vital Signs On Initial Exam: Initial Vitals Temp Pulse Resp BP Pulse Ox 97.4 F 71 16 153/99 99 09/11/19 10:29 09/11/19 10:29 09/11/19 10:29 09/11/19 10:29 09/11/19 10:29 Vital Signs Reviewed: Yes Procedures - Sedation Patient Received Moderate/Deep Sedation with Procedure: No Diagnostics - Vital Signs Vital Signs Temp Pulse Resp BP Pulse Ox 09/11/19 10:29 97.4 F 71 16 153/99 99 - Laboratory Result Diagrams: 09/11/19 11:24 09/11/19 11:24 Lab Statement: Any lab studies that have been ordered have been reviewed, and results considered in the medical decision making process. Re-Evaluation - Re-Evaluation First Eval Re-Evaluation Time: 13:18 Change: Improved Comment: Bentyl resulted in significant improvement in Sx, will discharge to home when O and P returns. Second Eval Re-Evaluation Time: 13:54 Change: Improved Comment: O and P is still pending. Patient feels better. She is discharged to home and will be called with results of test. Patient is agreeable with this. GIGU Course/Dx - Course Course Of Treatment: She is here with 5 days of vomiting and severe diarrhea. Patient has no blood in her diarrhea. Patient's overall well-appearing with a benign abdominal exam. Patient had a negative CT scan at [place] last night per her. Patient had blood performed which was grossly unremarkable. Patient had stool sent for O&P and stool culture. Patient is given Bentyl and Zofran with vast improvement in her symptoms. Patient is discharged on Bentyl - Diagnoses Provider Diagnoses: Vomiting and diarrhea, Abdominal pain Discharge ED - Sign-Out/Discharge Documenting (check all that apply): Patient Departure - discharge - Discharge Plan Condition: Stable Disposition: HOME Prescriptions: Dicyclomine CAP* [Bentyl CAP*] 10 mg PO TID PRN #20 cap PRN Reason: abdominal cramping Patient Education Materials: Acute Nausea and Vomiting (ED), Acute Diarrhea (ED ), Abdominal Pain (ED) Referrals: Maria T Quesada [employer] INSPECTOR [Primary Care Provider] - 3 Days Additional Instructions: Take the Bentyl that you have been prescribed and your Zofran. Follow up with your primary care physician within 1-3 days. Return to ED for severe abdominal pain, high fever, lack of urination in a 24 hour period, and any other concerning symptoms. - Billing Disposition and Condition Condition: STABLE Disposition: Home - Attestation Statements Document Initiated by Romero: Yes Documenting Scribe: SATISH SWARTZ Provider For Whom Romero is Documenting (Include Credential): VALERIANO ROWE MD Scribe Attestation: SATISH Nam, scribed for VALERIANO ROWE MD on 09/11/19 at 1659. Scribe Documentation Reviewed: Yes Provider Attestation: The documentation as recorded by the SATISH purvis accurately reflects the service I personally performed and the decisions made by me, VALERIANO ROWE MD Status of Scribe Document: Viewed
[2019-09-11] MEDS ORDERED: Ondansetron INJ* 2 MG/ML VIAL IV ONE (11:18)
[2019-09-11] MEDS ORDERED: Dicyclomine CAP* 10 MG PO ONE (11:18)
[2019-09-11] MEDS ORDERED: NS 0.9% 1000 ML** 1,000 ML IV ONE (11:18)
[2019-09-11 11:36] LABS: ABS Monocytes 0.6 10^3/ul (0-0.8); ABS Neutrophils 3.7 10^3/ul (1.5-7.7); Eosinophil % 0.6 %; Hematocrit 45 % (35-47); Hemoglobin 15.9 g/dL (12.0-16.0); Lymphocyte % 19.3 %; Mean Corpuscular HGB Conc 35 g/dL (31-36); Mean Corpuscular Hemoglobin 33 pg (27-31); Mean Corpuscular Volume 94 fL (80-97); Mean Platelet Volume 8.3 fL (7.4-10.4); Nucleated Red Blood Cells % 0.1; Platelet Count 179 10^3/uL (150-450); Red Blood Count 4.79 10^6 /uL (3.70-4.87); Red Cell Distribution Width 13 % (10-15); White Blood Count 5.3 10^3/uL (3.5-10.8)
[2019-09-11 11:53] LABS: Albumin 3.9 g/dL (3.2-5.2); Albumin/Globulin Ratio 1.7 (1-3); BUN/Creatinine Ratio 15.5 (8-20); EGFR African American 137.3 (>60); EGFR Non-African American 113.5 (>60); Globulin 2.3 g/dL (2-4); Potassium 3.6 mmol/L (3.5-5.0); Total Bilirubin 0.4 mg/dL (0.2-1.0); Total Protein 6.2 g/dL (6.4-8.9)
[2019-09-11 13:03] VITALS: BP 121/72
== END 2019-09-11 14:07 | disposition home or self-care (01) ==
LOC: ED 10:28
DX: R11.10 Vomiting, unspecified (principal); R19.7 Diarrhea, unspecified; R10.9 Unspecified abdominal pain; E11.9 Type 2 diabetes mellitus without complications; E06.9 Thyroiditis, unspecified; I10 Essential (primary) hypertension; J45.909 Unspecified asthma, uncomplicated; K21.9 Gastro-esophageal reflux disease without esophagitis; F17.210 Nicotine dependence, cigarettes, uncomplicated; Z90.49 Acquired absence of other specified parts of digestive tract; Z98.51 Tubal ligation status; Z88.1 Allergy status to other antibiotic agents; Z88.0 Allergy status to penicillin; Z79.890 Hormone replacement therapy; Z79.899 Other long term (current) drug therapy
CPT/HCPCS: 36415; 80053; 83690; 85025; 87177; 87209; 87328; 87329; 96361; 96374; 99283; A9270-GY; J2405

== ENCOUNTER 2019-09-20 08:47 | Emergency (ER) | payer BC ==
[2019-09-20] MEDS ORDERED: NS 0.9% 1000 ML** 2,000 ML IV ONE (09:06)
[2019-09-20] MEDS ORDERED: Metoclopramide IV* 5 MG/ML 2 ML VIAL IV SLOW PU ONE (09:06)
[2019-09-20] MEDS ORDERED: Ketorolac INJ* 30 MG/ML 1 ML VIAL IV PUSH ONE (09:07)
--- NOTE | 2019-09-20 09:28 | ED ---
GI/ HPI - HPI Summary HPI Summary: 43-year-old female presents with abdominal pain and vomiting for the past 4 days. She hasn't been able to keep anything down. Has tried Zofran without relief. She states that she feels very weak and dizzy. She admits to headache. Denies any chest pressures or shortness of breath. No urinary symptoms. States that she had a week and a half ago had diarrhea in addition but was given bentayl and diarrhea part is improved. She does have a history of colitis. States she cant follow-up with her GI as they're out of town for the next 2 months. No blood in her stool. No recent travel. Did not eat anything different. - History of Current Complaint Chief Complaint: EDAbdPain Time Seen by Provider: 09/20/19 08:55 Stated Complaint: WEAKNESS Hx Last Menstrual Period: early Pain Intensity: 6 - Additional Pertinent History Primary Care Physician: [id number] - Allergy/Home Medications Allergies/Adverse Reactions: Allergies Allergy/AdvReac Type Severity Reaction Status Date / Time erythromycin base Allergy Rash Verified 09/20/19 08:53 levofloxacin [From Levaquin] Allergy Rash Verified 09/20/19 08:53 Penicillins Allergy Rash Verified 09/20/19 08:53 Quinolones Allergy Rash Verified 09/20/19 08:53 moxifloxacin [From Avelox] AdvReac Vomiting Verified 09/20/19 08:53 Home Medications: Home Medications Albuterol HFA INHALER* [Ventolin HFA Inhaler*] 1 - 2 puff INH Q4H PRN 09/20/19 [ History Confirmed 09/20/19] Sucralfate TAB* [Carafate*] 1 gm PO BID 09/20/19 [History Confirmed 09/20/19] PMH/Surg Hx/FS Hx/Imm Hx Endocrine/Hematology History: Reports: Hx Diabetes - DIET CONTROLLED, Hx Thyroid Disease - thyroiditis Denies: Hx Systemic Lupus Erythematosus Cardiovascular History: Reports: Hx Hypertension Denies: Hx Congestive Heart Failure, Hx Pacemaker/ICD Respiratory History: Reports: Hx Asthma Denies: Hx Chronic Obstructive Pulmonary Disease (COPD) GI History: Reports: Hx Gastroesophageal Reflux Disease Denies: Hx Ulcer History: Denies: Hx Renal Disease Musculoskeletal History: Denies: Hx Rheumatoid Arthritis Sensory History: Denies: Hx Contacts or Glasses, Hx Hearing Aid Opthamlomology History: Denies: Hx Contacts or Glasses Psychiatric History: Denies: Hx Panic Disorder - Cancer History Cancer Type, Location and Year: Cervical cancer - Surgical History Surgery Procedure, Year, and Place: Cholecystectomy, LEEP x 3, tubal ligation , thyroidectomy,CYST REMOVAL OVARY - Immunization History Date of Tetanus Vaccine: utd Date of Influenza Vaccine: none Infectious Disease History: No Infectious Disease History: Denies: Hx Clostridium Difficile, Hx Hepatitis, Hx Human Immunodeficiency Virus (HIV), Hx of Known/Suspected MRSA, Hx Shingles, Hx Tuberculosis, Hx Known/ Suspected VRE, Hx Known/Suspected VRSA, History Other Infectious Disease, Traveled Outside the [place] in Last 30 Days - Family History Known Family History: Positive: Cardiac Disease, Hypertension, Diabetes, Renal Disease - mother- multiple kindey problems, did not know what - Social History Alcohol Use: Rare Substance Use Type: Reports: Marijuana Substance Use Comment - Amount & Last Used: Medical Marijuana last night Hx Tobacco Use: Yes Smoking Status (MU): Light Every Day Tobacco Smoker Type: Cigarettes Amount Used/How Often: 2 CIGS A DAY Length of Time of Smoking/Using Tobacco: On and Off Since Age 28 Have You Smoked in the Last Year: Yes Review of Systems Negative: Fever Negative: Chest Pain Negative: Shortness Of Breath Positive: Abdominal Pain, Vomiting, Nausea. Negative: Diarrhea All Other Systems Reviewed And Are Negative: Yes Physical Exam Triage Information Reviewed: Yes Vital Signs On Initial Exam: Initial Vitals Temp Pulse Resp BP Pulse Ox 97.3 F 72 16 125/83 100 09/20/19 08:50 09/20/19 08:50 09/20/19 08:50 09/20/19 08:50 09/20/19 08:50 Vital Signs Reviewed: Yes Appearance: Positive: Well-Appearing Skin: Positive: Warm, Dry Head/Face: Positive: Normal Head/Face Inspection Eyes: Positive: Normal, Conjunctiva Clear ENT: Positive: Pharynx normal Respiratory/Lung Sounds: Positive: Clear to Auscultation, Breath Sounds Present Cardiovascular: Positive: Normal, RRR Abdomen Description: Positive: Soft, Other: - tenderness lower abd, Bowel Sounds: Positive: Present Musculoskeletal: Positive: Normal Neurological: Positive: Normal Psychiatric: Positive: Normal Procedures - Sedation Patient Received Moderate/Deep Sedation with Procedure: No Diagnostics - Vital Signs Vital Signs Temp Pulse Resp BP Pulse Ox 10/28/19 08:50 97.3 F 72 16 125/83 100 - Laboratory Result Diagrams: 09/20/19 09:19 09/20/19 09:19 Lab Statement: Any lab studies that have been ordered have been reviewed, and results considered in the medical decision making process. - EKG No standard instances Cardiac Rate: Bradycardia EKG Rhythm: Sinus Bradycardia Summary of EKG Findings: sinus bradycardia Re-Evaluation - Re-Evaluation First Eval Re-Evaluation Time: 10:57 Change: Improved Comment: feeling better, less nausous Second Eval Re-Evaluation Time: 12:32 Comment: still feels well GIGU Course/Dx - Course Course Of Treatment: 43-year-old female presents with abdominal pain and vomiting for the past 4 days. She hasn't been able to keep anything down. Has tried Zofran without relief. She states that she feels very weak and dizzy. She admits to headache. Denies any chest pressures or shortness of breath. No urinary symptoms. States that she had a week and a half ago had diarrhea in addition but was given bentayl and diarrhea part is improved. She does have a history of colitis. States she cant follow-up with her GI as they're out of town for the next 2 months. No blood in her stool. No recent travel. Did not eat anything different. On exam tenderness in lower quadrants and epigastric. wbc normal. crp normal. electrolytes normal. CT abd shows no acute findings. will discharge with reglan. discussed case with dr humphrey. told follow up with GI. patient understand and agrees with plan. - Diagnoses Differential Diagnoses - Female: Colitis, Gastroenteritis (Viral), Vomiting Provider Diagnoses: Abdominal pain, Vomiting Discharge ED - Sign-Out/Discharge Documenting (check all that apply): Patient Departure - Discharge Plan Condition: Good Disposition: HOME Prescriptions: Metoclopramide TAB* [Reglan TAB*] 10 mg PO Q6H #20 tab Patient Education Materials: Acute Nausea and Vomiting (ED) Referrals: Maria T Quesada NP [Primary Care Provider] - Additional Instructions: Can take reglan every 6 hours as needed for nausea Drink small amounts of fluid as tolerated When able to eat follow BRAT diet: Bananas, rice, applesauce, toast Take ibuprofen or Tylenol for pain as needed every 6 hours Follow up with primary within 5 days Return to ED if develop any new or worsening symptomss - Billing Disposition and Condition Condition: GOOD Disposition: Home
[2019-09-20 09:34] LABS: ABS Basophils 0.1 10^3/ul (0-0.2); ABS Eosinophils 0.1 10^3/ul (0-0.6); ABS Lymphocytes 1.6 10^3/ul (1.0-4.8); ABS Monocytes 0.8 10^3/ul (0-0.8); ABS Neutrophils 5.9 10^3/ul (1.5-7.7); Eosinophil % 0.9 %; Hematocrit 45 % (35-47); Hemoglobin 15.1 g/dL (12.0-16.0); Lymphocyte % 18.7 %; Mean Corpuscular HGB Conc 34 g/dL (31-36); Mean Corpuscular Hemoglobin 33 pg (27-31); Mean Corpuscular Volume 96 fL (80-97); Mean Platelet Volume 7.8 fL (7.4-10.4); Nucleated Red Blood Cells % 0.2; Platelet Count 292 10^3/uL (150-450); Red Blood Count 4.64 10^6 /uL (3.70-4.87); Red Cell Distribution Width 13 % (10-15); White Blood Count 8.3 10^3/uL (3.5-10.8)
[2019-09-20 09:54] LABS: ALT 35 U/L (7-52); AST 34 U/L (13-39); Albumin 3.9 g/dL (3.2-5.2); Albumin/Globulin Ratio 1.8 (1-3); Alkaline Phosphatase 46 U/L (34-104); Anion Gap 6 mmol/L (2-11); BUN/Creatinine Ratio 12.1 (8-20); Blood Urea Nitrogen 8 mg/dL (6-24); C Reactive Protein < 1.00 mg/L (<8.01); CO2 Carbon Dioxide 24 mmol/L (22-32); Calcium 8.8 mg/dL (8.6-10.3); Chloride 108 mmol/L (101-111); EGFR African American 118.3 (>60); EGFR Non-African American 97.7 (>60); Globulin 2.2 g/dL (2-4); Glucose 138 mg/dL (70-100); Magnesium 1.9 mg/dL (1.9-2.7); Potassium 3.8 mmol/L (3.5-5.0); Sodium 138 mmol/L (135-145); Total Protein 6.1 g/dL (6.4-8.9)
[2019-09-20 09:58] LABS: HCG Pregnancy < 0.60 mIU/mL
[2019-09-20] MEDS ORDERED: Iodixanol* (CONTRAST) 320 MG/ML 100 ML SDV IV ONE (10:42)
[2019-09-20 11:43] LABS: Urine Appearance Clear; Urine Bacteria Absent (Absent); Urine Bilirubin Negative (Negative); Urine Blood 1+ (Negative); Urine Color Yellow; Urine Glucose Negative (Negative); Urine Ketones Negative (Negative); Urine Nitrite Negative (Negative); Urine Protein Negative (Negative); Urine Red Blood Cell Trace(0-2/hpf) (Absent); Urine Specific Gravity 1.009 (1.010-1.030); Urine Squamous Epithelial Cell Present (Absent); Urine Urobilinogen Negative (Negative); Urine White Blood Cell Absent (Absent)
[2019-09-20 12:42] VITALS: BP 115/83
== END 2019-09-20 12:41 | disposition home or self-care (01) ==
LOC: ED 08:47
DX: R10.9 Unspecified abdominal pain (principal); F17.210 Nicotine dependence, cigarettes, uncomplicated; R11.10 Vomiting, unspecified; I10 Essential (primary) hypertension
CPT/HCPCS: 36415; 74177; 80053; 81003; 81015; 83605; 83690; 83735; 84702; 85025; 86140; 93005; 96374; 96375; 99283; J1885; J2765; Q9967